=== PATIENT | female | born 1950 | race Hispanic/Latino ===

== ENCOUNTER → 2018-10-10 | Day surgery (SDC) | payer MEDICARE, OTHER ==
[2018-10-08 11:56] LABS: BASOPHILS # (AUTO) 0.1 (0.0-0.1); BASOPHILS % 0.5 % (0.0-1.0); EOSINOPHILS # (AUTO) 0.2 (0.0-0.4); EOSINOPHILS % 1.5 % (0.0-6.0); HEMATOCRIT 44.7 % (34.2-44.1); HEMOGLOBIN 14.2 g/dL (12.0-16.0); LYMPHOCYTES # (AUTO) 2.7 (1.0-3.2); MEAN CORPUSCULAR HGB CONC 31.8 g/dL (31-35); MEAN CORPUSCULAR VOLUME 91.2 fL (81-99); MONOCYTES # (AUTO) 1.1 (0.2-0.8); MONOCYTES % 10.3 % (4.4-11.3); NEUTROPHILS # (AUTO) 6.9 (2.1-6.9); NEUTROPHILS % 62.3 % (38.7-80.0); PLATELET COUNT 304 x10e3/uL (140-360); RED CELL DISTRIBUTION WIDTH 13.9 % (11.7-14.4)
--- NOTE | 2018-10-08 12:31 | Diagnostic Imaging Report ---
EXAMINATION: CHEST 2 VIEWS INDICATION: Pre-operative. COMPARISON: None FINDINGS: TUBES and LINES: None. LUNGS: Lungs are moderately inflated. There is no evidence of pneumonia or pulmonary edema. There is elevation of the right hemidiaphragm. Mild interstitial opacities may reflect age-related chronic changes. PLEURA: No pleural effusion or pneumothorax. HEART AND MEDIASTINUM: The cardiomediastinal silhouette is unremarkable. There are atherosclerotic calcifications within the aorta. BONES AND SOFT TISSUES: No acute osseous abnormality. UPPER ABDOMEN: No free air under the diaphragm. IMPRESSION: Clear lungs. Elevation of the right hemidiaphragm. Comparison with prior studies or fluoroscopic sniff test may be considered to evaluate for phrenic nerve palsy. Signed by: Dr. Rajesh Cottrell MD on 10/08/2018 12:27 PM
[2018-10-08 12:45] LABS: ANION GAP 11.7 mmol/L (8-16); BLOOD UREA NITROGEN 22 mg/dL (7-26); BUN/CREATININE RATIO 26 (6-25); CALCIUM 10.3 mg/dL (8.4-10.2); CARBON DIOXIDE 31 mmol/L (22-29); CHLORIDE 101 mmol/L (98-107); CREATININE, SERUM 0.84 mg/dL (0.57-1.11); EST GLOMERULAR FILTRATION RATE > 60 ML/MIN (60-); GLUCOSE 112 mg/dL (74-118); POTASSIUM 4.7 mmol/L (3.5-5.1); SODIUM 139 mmol/L (136-145)
[~2018-10-10] MED LIST: ACETAMINOPHEN 1000 MG/100 ML 100 ML IV ONE; ASPIR 8181 MG PO; BUPIVACAINE 0.25%/EPI 30ML SDV INJ ONE; CEFAZOLIN SOD 2 GM/D5W 50ML 50 ML IV ONE; DESFLURANE 240 ML BTL INH ONE; DEXAMETHASONE SOD PHOS INJ 4 MG/ML VIAL ONE; EPHEDRINE SULFATE INJ 50 MG/10 ML SYR ONE; EPINEPHRINE HCL 1:1000 1ML 1 MG/ML AMP ONE; FENTANYL CITRATE/PF 100MCG/2 ML INJ ONE; GLYCOPYRROLATE INJ 1MG/ 5 ML SYR ONE; LANTUS 3ML100 UNITS/ INJ; LIDOCAINE HCL 2% LOCAL INJ 5 ML SDV VIAL INJ ONE; MEPERIDINE HCL INJ 25 MG/ML VIAL ONE; METOCLOPRAMIDE HCL 10 MG/2ML VIAL ONE; METOPROLOL SUCC25 MG PO; MIDAZOLAM HCL 2 MG/2 ML VIAL ONE; NAPROXEN250 MG PO; NEOSTIGMINE 5 MG/5ML SYR ONE; ONDANSETRON HCL INJ 2MG/ML 2ML 2 MG/ML VIAL ONE; PHENYLEPHRINE HCL 1% 10 MG/ML VIAL ONE; PROMETHAZINE HCL (IM) 25 MG/ML VIAL ONE; PROPOFOL IV EMULSION 10 MG/ML 20 ML VIAL ONE; ROCURONIUM BROMIDE 10 MG/ML 5ML VIAL ONE; SEVOFLURANE INHAL SOLN 250 ML PEN BTL ONE; SIMVASTATIN40 MG PO; VICTOZA 2-0.6 MG/0.1 INJ
--- OUTSIDE RECORDS SUMMARY | 2018-10-10 07:53 | XMS REPORT | Continuity of Care Document ---
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 Active 08/13/2018 [facility] SOB Active 08/09/2018 [facility] Other cervical disc degeneration at C5-C6 level 02/09/2018 08/25/2018 [facility] M54.2 Active 02/05/2018 [facility] Shingles 09/05/2017 09/08/2017 [facility] LEFT SIDE Active 09/05/2017 [facility] Discharge Diagnosis: Sciatica 02/18/2015 02/21/2015 [facility] LT FLANK PAIN Active 02/18/2015 [facility] Discharge Diagnosis: Dehydration 12/29/2014 01/01/2015 [facility] ABNORMAL LABS Active 12/29/2014 [facility] V76.12 - SCREEN MAMMOGRA Active 11/20/2014 [facility] [place] UNK Active 02/19/2014 [facility] 250.00/401.9/562.11/V12.72 Active 02/19/2014 [facility] OSTEOPOROSIS Active 03/28/2013 [facility] V82.81 - SCREEN - OSTEOP Active 03/26/2013 [place] [place] ALDOSTERONOMA/INJURY OF URETER Active 05/23/2012 [facility] ACUTE PYELONEPHRITIS Active 03/22/2012 [facility] DOCTOR SENT Active 03/22/2012 [facility] ABD PAIN Active 03/12/2012 [facility] Constipation<sup>1</sup> Active 03/05/2012 Problem 09/26/2018 Data migrated from [employer] on 10/04/14. [facility] Diverticular disease of colon<sup>2</sup> Active 03/05/2012 Problem 09/26/2018 Data migrated from [employer] on 10/04/14. [facility] Left lower quadrant pain<sup>3</sup> Active 03/05/2012 Problem 09/26/2018 Data migrated from [employer] on 10/04/14. [facility] [place], [place] POSTOP CARE Active 02/23/2012 [place] DIVERTICULITIS Active 12/30/2011 [place] 719.4 - PAIN IN JOINT Active 11/11/2011 [facility] [place] V12.72/562.11/787.20 Active 06/22/2011 [place] DIVETICULITIS Active 06/22/2011 [place] ABDOMINAL PAIN Active 05/15/2011 [place] Acid reflux Resolved Problem 09/26/2018 [facility] [place] Back pain Resolved Problem 09/26/2018 [facility] [place] Diabetes mellitus Active Problem 09/26/2018 [facility] [place] Diverticulitis Active Problem 09/26/2018 [facility] [place],[facility] DM , type 2(<span ID="[id number]</span>) Resolved Problem 09/26/2018 OPIAnni [place], [place] Hip pain Resolved Problem 09/26/2018 [facility] [place],[facility] Hypercholesterolemia Active Problem 09/26/2018 [facility] [place] Sigmoid colectomy Active Problem 09/26/2018 [facility] [place] Sleep apnea Active Problem 09/26/2018 [facility] [place] Diabetes mellitus Active Problem 07/01/2012 [place] Diverticulitis Active Problem 07/01/2012 [place] Hypercholesterolemia Active Problem 07/01/2012 [place] Sleep apnea Active Problem 07/01/2012 [place] Sigmoid colectomy Active Problem 07/01/2012 [facility] Final: Other Screening Mammogram 07/05/2013 [facility] [place] Other spondylosis, cervical region 08/25/2018 [facility] Osteophyte, vertebrae 08/25/2018 [place] Pain in left shoulder 08/25/2018 [place] Pain in right shoulder 08/25/2018 [place] DIVERTICULOSIS OF COLON Active [place] DIVERTICULITIS OF COLON Active [facility] PYELONEPHRITIS NOS Active [facility] Medications Medication Details Route Status Patient Instructions Ordering Provider Order Date Source Omnipaque 300 injectable solution 100 mL, Route: IV, Drug Form: SOLN, Dosing Weight 92.273, kg, ONCALL, GFR > 45 mL/min, Start date: 09/24/18 9:00:00 CDT, Duration: 1 doses or timesNotes: (Same as:Omnipaque 300). WASTE: F/P - Black; E - [facility] Active 09/24/2018 [facility] Lidocaine Hydrochloride 0.05 MG/MG Transdermal Patch [Lidoderm] 1 patch, TOP, Daily, Placed patch on 12 hours off 12 hours, # 30 patch, 0 Refill(s) Active 09/05/2017 [facility] tramadol hydrochloride 50 MG Oral Tablet [Ultram] 50 mg=1 tab, PO, Q4H, PRN pain, X 3 day, # 20 tab, 0 Refill(s) Active 09/05/2017 [facility] valacyclovir 1000 MG Oral Tablet [Valtrex] 1 gm=1 tab, PO, Q8H, X 7 day, # 21 tab, 0 Refill(s) Active 09/05/2017 [facility] tramadol hydrochloride 50 MG Oral Tablet [Ultram] 50 mg=1 tab, PO, Q6H, PRN pain, X 5 day, # 20 tab, 0 Refill(s) Active 02/19/2015 [facility] naproxen 375 mg oral enteric coated delayed-release tablet 375 mg=1 tab, PO, Q12H, # 20 tab, 0 Refill(s) Active 02/19/2015 [facility] Acetaminophen 325 MG / Hydrocodone Bitartrate 5 MG Oral Tablet 1 tab, Route: PO, Dosing Weight 93.636, kg, ONCE, STAT, Start date: 02/18/15 20:57:00, Stop date: 02/18/15 20:57:00 Inactive 02/19/2015 [facility] Ketorolac 30 mg, Route: IM, Drug form: INJ, ONCE, Dosing Weight 93.636, kg, Priority: STAT, Start date: 02/18/15 20:56:00, Stop date: 02/18/15 20:56:00 Inactive 02/19/2015 [facility] Sodium Chloride 0.154 MEQ/ML Injectable Solution 1,000 mL, 1,000 ml/hr, Infuse Over: 1 hr, Route: IV, ONCE, Priority: STAT, Dosing Weight 90.909 kg, Start date: 12/29/14 21:57:00, Duration: 1 doses or times, Stop date: 12/29/14 21:57:00 Inactive 12/30/2014 [facility] Sodium Chloride 0.154 MEQ/ML Injectable Solution 1,000 mL, Rate: 25 ml/hr, Infuse over: 40 hr, Route: IV, Dosing Weight 91.364 kg, Total Volume: 1,000, Start date: 03/07/14 9:23:00, Duration: 30 day, Stop date: 04/06/14 9:22:00 Inactive 03/07/2014 [facility] Flumazenil 0.2 mg, Route: IVP, PRN, Dosing Weight 91.364, kg, PRN Other -See Comment, Start date: 03/07/14 7:47:00, Duration: 1 doses or times, Stop date: Limited # of times Inactive 03/07/2014 [facility] Naloxone 0.1 mg, Route: IVP, Q2MIN, Dosing Weight 91.364, kg, PRN Narcotic Reversal, Start date: 03/07/14 7:47:00, Duration: 4 doses or times, Stop date: Limited # of times Inactive 03/07/2014 [facility] Omnipaque 300 100 mL, 0 ml/hr, Route: INJ, Drug Form: SOLN, ONCE, Start date: 06/29/12 9:00:00, Stop date: 06/29/12 9:00:00 INJ No Longer Active Art 06/29/2012 [facility] Cipro 500 mg, 1 tab, Route: PO, Drug form: TAB, [id number], Dosing Weight 92.273, kg, Start date: 03/27/12 16:00:00, Duration: 30 day, Stop date: 04/26/12 4:00:00 PO No Longer Active Silva 03/27/2012 [facility] Cipro 500 mg oral tablet 500 mg, 1 tab, PO, [id number], 20 tab, Substitution Allowed, TAB PO Active Silva 03/27/2012 [facility] Cipro 500 mg, 1 tab, Route: PO, Drug form: TAB, [id number], Start date: 03/27/12 15:00:00, Duration: 20 doses or times, Stop date: 04/06/12 3:00:00 PO No Longer Active Ahmad 03/27/2012 [facility] Pyridium 200 mg, 1 tab, Route: PO, Drug form: TAB, BID, Start date: 03/23/12 17:00:00, Duration: 30 day, Stop date: 04/22/12 9:00:00 PO No Longer Active Art 03/23/2012 [facility] insulin aspart 4 unit, 0.04 mL, Route: SUB-Q, Drug form: SOLN, TID-Before Meals, Dosing Weight 92.273, kg, PRN Blood Glucose Results, Start date: 03/23/12 0:21:00, Duration: 30 day, Stop date: 04/22/12 0:20:00 SUB-Q No Longer Active [facility] 03/23/2012 [facility] Dextrose 50% Syringe 12.5 gm, 25 mL, Route: IVP, Drug Form: INJ, Dosing Weight 92.273, kg, PRN, PRN Blood Glucose Results, Start date: 03/23/12 0:21:00, Duration: 30 day, Stop date: 04/22/12 0:20:00 IVP No Longer Active [facility] 03/23/2012 [facility] glucagon 1 mg, Route: IM, Drug form: PDR/INJ, PRN, Dosing Weight 92.273, kg, PRN Blood Glucose Results, Start date: 03/23/12 0:21:00, Duration: 30 day, Stop date: 04/22/12 0:20:00 IM No Longer Active [facility] 03/23/2012 [facility] ondansetron 4 mg, 2 mL, Route: IVP, Drug form: INJ, Q6H, Dosing Weight 92.273, kg, PRN Nausea & Vomiting, Start date: 03/22/12 22:22:00, Duration: 30 day, Stop date: 04/21/12 22:21:00 IVP No Longer Active [facility] 03/23/2012 [facility] acetaminophen-hydrocodone 325 mg-5 mg oral tablet 2 tab, Route: PO, Drug Form: TAB, Dosing Weight 92.273, kg, Q4H, PRN Pain Score 4-6, Start date: 03/22/12 22:22:00, Duration: 30 day, Stop date: 04/21/12 22:21:00 PO No Longer Active [facility] 03/23/2012 [facility] Saline Flush 0.9% 5 ml, Route: IVP, Drug Form: INJ, Dosing Weight 92.273, kg, PRN, PRN Line Flush, Start date: 03/22/12 22:22:00, Duration: 30 day, Stop date: 04/21/12 22:21:00 IVP No Longer Active [place] 03/23/2012 [facility] Sodium Chloride 0.9% IV 1,000 mL 1,000 mL, Rate: 125 ml/hr, Infuse over: 8 hr, Route: IV, kg, Total Volume: 1,000, Start date: 03/22/12 22:22:00, Duration: 30 day, Stop date: 04/21/12 22:21:00 IV No Longer Active [place] 03/23/2012 [facility] acetaminophen 650 mg, 2 tab, Route: PO, Drug form: TAB, Q4H, Dosing Weight 92.273, kg, PRN Pain/Fever, Start date: 03/22/12 22:22:00, Duration: 30 day, Stop date: 04/21/12 22:21:00 PO No Longer Active [place] 03/23/2012 [facility] enoxaparin 40 mg, 0.4 mL, Route: SUB-Q, Drug form: INJ, [id number], Dosing Weight 92.273, kg, Priority: STAT, Start date: 03/22/12 22:20:00, Duration: 30 day, Stop date: 04/20/12 23:00:00 SUB-Q No Longer Active mad 03/23/2012 [facility] tobramycin + Sodium Chloride 0.9% IV 100 mL 300 mg, 7.5 mL, Route: IV, Drug form: INJ, ONCE, Dosing Weight 92.273, kg, Priority: STAT, Start date: 03/22/12 22:12:00, Stop date: 03/22/12 22:12:00 IV No Longer Active Ahmad 03/23/2012 [facility] cefepime + Sodium Chloride 0.9% IV 100 mL 1 gm, Route: IVPB, [id number], Dosing Weight 92.273, kg, (CrCl 30 - 49 ml/min), Priority: STAT, Start date: 03/22/12 22:12:00, Duration: 30 day, Stop date: 04/21/12 10:00:00 IVPB No Longer Active mad 03/23/2012 [facility] vancomycin 1 gm, 250 mL, Route: IVPB, Drug form: INJ, ONCE, Dosing Weight 92.273, kg, Priority: STAT, Start date: 03/22/12 21:29:00, Stop date: 03/22/12 21:29:00 IVPB No Longer Active [facility] 03/23/2012 [facility] Rocephin 1 gm, Route: IVPB, ONCE, Dosing Weight 92.273, kg, Priority: STAT, Start date: 03/22/12 21:29:00, Stop date: 03/22/12 21:29:00 IVPB No Longer Active [facility] 03/23/2012 [facility] NS 500 mL 500 mL, Rate: 1,000 ml/hr, Infuse over: 0.5 hr, Route: IV, kg, Total Volume: 500, Start date: 03/22/12 20:07:00, Duration: 1 doses or times, Stop date: 03/22/12 20:36:00, Bolus DoseBolus Dose IV No Longer Active [facility] 03/23/2012 [facility] ondansetron 4 mg, 2 mL, Route: IVP, Drug form: INJ, ONCE, Dosing Weight 92.273, kg, Priority: STAT, Start date: 03/22/12 18:03:00, Stop date: 03/22/12 18:03:00 IVP No Longer Active [facility] 03/23/2012 [facility] Saline Flush 0.9% 5 mL, Route: IVP, Drug Form: INJ, Dosing Weight 92.273, kg, PRN, PRN Line Flush, Start date: 03/22/12 18:03:00, Duration: 24 hr, Stop date: 03/23/12 18:02:00 IVP No Longer Active [facility] 03/23/2012 [facility] metoclopramide 10 mg, 2 mL, Route: IVP, Drug form: INJ, ONCE, Dosing Weight 92.273, kg, Priority: STAT, Start date: 03/22/12 18:03:00, Stop date: 03/22/12 18:03:00 IVP No Longer Active [facility] 03/23/2012 [facility] oxybutynin 15 mg oral tablet, extended release 15 mg, 1 tab, PO, Daily, 30 tab, Substitution Allowed, ERTAB PO Active Anju 03/13/2012 [facility] Ultram 50 mg oral tablet 50 mg, 1 tab, PO, Q4H, PRN, 20 tab, pain, Substitution Allowed PO Active [facility] 03/13/2012 [facility] Dilaudid 0.5 mg, Route: IV, ONCE, Dosing Weight 92.273, kg, Start date: 03/12/12 13:09:00, Stop date: 03/12/12 13:09:00 IV No Longer Active [facility] 03/12/2012 [facility] Saline Flush 0.9% 5 mL, Route: IVP, Drug Form: INJ, Dosing Weight 92.273, kg, PRN, PRN Line Flush, Start date: 03/12/12 12:50:00, Duration: 24 hr, Stop date: 03/13/12 12:49:00 IVP No Longer Active [facility] 03/12/2012 [facility] [place] 5/325 oral tablet 1 tab, Route: PO, Drug Form: TAB, Dosing Weight 99.545, kg, Q6H, PRN Pain Score 1-5, Start date: 03/09/12 12:45:00, Duration: 30 day, Stop date: 04/08/12 12:44:00 PO No Longer Active [facility] 03/09/2012 [facility] sulfamethoxazole-trimethoprim 800 mg-160 mg oral tablet 1 tab, Route: PO, Drug Form: TAB, [id number], Start date: 03/08/12 9:00:00, Duration: 30 day, Stop date: 04/06/12 9:00:00 PO No Longer Active [place] 03/08/2012 [facility] Entereg 12 mg, 1 cap, Route: PO, Drug form: CAP, ONCE, Dosing Weight 99.545, kg, Start date: 03/06/12 11:04:00, Stop date: 03/06/12 11:04:00 PO No Longer Active [facility] 03/06/2012 [facility] Bystolic 2.5 mg, 1 tab, Route: PO, Drug form: TAB, Daily, Start date: 03/06/12 9:00:00, Duration: 30 day, Stop date: 04/04/12 9:00:00 PO No Longer Active [facility] 03/06/2012 [facility] multivitamin with minerals 1 tab, Route: PO, Drug Form: TAB, Daily, Start date: 03/06/12 9:00:00, Duration: 30 day, Stop date: 04/04/12 9:00:00 PO No Longer Active [place] 03/06/2012 [facility] Amaryl 4 mg, 1 tab, Route: PO, Drug form: TAB, Daily, Start date: 03/06/12 9:00:00, Duration: 30 day, Stop date: 04/04/12 9:00:00 PO No Longer Active [place] 03/06/2012 [facility] acetaminophen 1,000 mg, 2 tab, Route: PO, Drug form: TAB, Q6H, PRN Pain, Start date: 03/06/12 8:03:00, Duration: 30 day, Stop date: 04/05/12 8:02:00 PO No Longer Active Voloyiannis 03/06/2012 [facility] magnesium sulfate 2 gm, 50 mL, Route: IVPB, Drug form: INJ, ONCE, Start date: 03/06/12 8:03:00, Stop date: 03/06/12 8:03:00 IVPB No Longer Active [place] 03/06/2012 [facility] Glucophage 1,000 mg, 2 tab, Route: PO, Drug form: TAB, BID-Meals, Start date: 03/06/12 8:00:00, Duration: 30 day, Stop date: 04/04/12 17:00:00 PO No Longer Active [place] 03/06/2012 [facility] Protonix 40 mg, 1 tab, Route: PO, Drug form: ECTAB, Before Dinner, Start date: 03/05/12 21:00:00, Duration: 30 day, Stop date: 04/04/12 16:30:00 PO No Longer Active Voloyiannis 03/06/2012 [facility] Zocor 20 mg, 1 tab, Route: PO, Drug form: TAB, Bedtime, Start date: 03/05/12 21:00:00, Duration: 30 day, Stop date: 04/03/12 21:00:00 PO No Longer Active [place]iannis 03/06/2012 [facility] famotidine 20 mg, 2 mL, Route: IVP, Drug form: INJ, Q12H, Dosing Weight 92.273, kg, Start date: 03/05/12 21:00:00, Duration: 30 day, Stop date: 04/04/12 9:00:00 IVP No Longer Active Vol[place]nis 03/06/2012 [facility] Entereg 12 mg, 1 cap, Route: PO, Drug form: CAP, BID, Dosing Weight 92.273, kg, Start date: 03/05/12 17:00:00, Duration: 30 day, Stop date: 04/04/12 9:00:00 PO No Longer Active [facility] 03/05/2012 [facility] naloxone 0.04 mg, Route: IVP, Q2MIN, Dosing Weight 92.273, kg, PRN Narcotic Reversal, Start date: 03/05/12 16:38:00, Duration: 8 doses or times, Stop date: Limited # of times IVP No Longer Active [place] 03/05/2012 [facility] meperidine 12.5 mg, 0.25 mL, Route: IVP, Drug form: INJ, Q30Min, Dosing Weight 92.273, kg, PRN Other -See Comment, For shivering, Start date: 03/05/12 16:38:00, Duration: 2 doses or times, Stop date: Limited # of times IVP No Longer Active [place] 03/05/2012 [facility] flumazenil 0.2 mg, 2 mL, Route: IVP, Drug form: INJ, PRN, Dosing Weight 92.273, kg, PRN Benzodiazepine Reversal, Initial dose, Start date: 03/05/12 16:38:00, Duration: 30 day, Stop date: 04/04/12 15:37:00 IVP No Longer Active [place] 03/05/2012 [facility] fentanyl 25 microgram, 0.5 mL, Route: IVP, Drug form: INJ, Q5Min, Dosing Weight 92.273, kg, PRN Pain Score 4-6, Start date: 03/05/12 16:38:00, Duration: 4 doses or times, Stop date: Limited # of times IVP No Longer Active [place] 03/05/2012 [facility] hydromorphone 0.5 mg, 0.25 mL, Route: IVP, Drug form: INJ, Q5Min, Dosing Weight 92.273, kg, PRN Pain Score 4-6, Start date: 03/05/12 16:38:00, Duration: 5 doses or times, Stop date: Limited # of times IVP No Longer Active [place] 03/05/2012 [facility] ondansetron 4 mg, 2 mL, Route: IVP, Drug form: INJ, ONCE, Dosing Weight 92.273, kg, PRN Nausea & Vomiting, Start date: 03/05/12 16:38:00 IVP No Longer Active [place] 03/05/2012 [facility] acetaminophen-hydrocodone 325 mg-5 mg oral tablet 1 tab, Route: PO, Drug Form: TAB, Dosing Weight 92.273, kg, Q4H, PRN Pain Score 1-3, Start date: 03/05/12 16:38:00, Duration: 30 day, Stop date: 04/04/12 16:37:00 PO No Longer Active [place] 03/05/2012 [facility] Lovenox 40 mg, 0.4 mL, Route: SUB-Q, Drug form: INJ, [id number], Dosing Weight 92.273, kg, Start date: 03/05/12 16:00:00, Duration: 30 day, Stop date: 04/03/12 6:00:00 SUB-Q No Longer Active [facility] 03/05/2012 [facility] nalbuphine 2 mg, 0.2 mL, Route: IVP, Drug form: INJ, Q2H, Dosing Weight 92.273, kg, PRN Itching, Start date: 03/05/12 10:53:00, Duration: 5 doses or times, Stop date: Limited # of times IVP No Longer Active [facility] 03/05/2012 [facility] naloxone 0.04 mg, 0.04 mL, Route: IVP, Drug form: INJ, Q2MIN, Dosing Weight 92.273, kg, PRN Narcotic Reversal, Start date: 03/05/12 10:53:00, Duration: 30 day, Stop date: 04/04/12 9:52:00 IVP No Longer Active [facility] 03/05/2012 [facility] hydromorphone 0.2 mg/mL JEWEL GAUGER (6 mg/30 mL) INJ Syringe 6 mg 6 mg, 30 mL, Route: IV, JEWEL GAUGER Dose: 0.2 mg, JEWEL GAUGER Lockout: 10 minutes, Continuous Basal Rate: 0 mg, 4 Hour Limit (In MG): 6, Drug Form: INJ, Continuous, Pain, Start date: 03/05/12 10:53:00, Duration: 30 day, Stop date: 04/04/12 9:52:00 IV No Longer Active [facility] 03/05/2012 [facility] NS + KCL 20mEq/L 1000ml (Premix) 1,000 mL 1,000 mL, Rate: 40 ml/hr, Infuse over: 25 hr, Route: IV, kg, Total Volume: 1,000, Start date: 03/05/12 10:53:00, Stop date: 04/04/12 10:52:00 [facility] diphenhydrAMINE 25 mg, 1 tab, Route: PO, Drug form: TAB, Bedtime, Dosing Weight 92.273, kg, PRN Insomnia, Start date: 03/05/12 10:53:00, Duration: 30 day, Stop date: 04/04/12 10:52:00 PO No Longer Active [facility] 03/05/2012 [facility] acetaminophen 650 mg, 2 tab, Route: PO, Drug form: TAB, Q4H, Dosing Weight 92.273, kg, PRN Pain Score 1-3, Start date: 03/05/12 10:53:00, Duration: 30 day, Stop date: 04/04/12 10:52:00 PO No Longer Active [facility] 03/05/2012 [facility] ondansetron 4 mg, 2 mL, Route: IVP, Drug form: INJ, Q6H, Dosing Weight 92.273, kg, PRN Nausea & Vomiting, Start date: 03/05/12 10:53:00, Duration: 30 day, Stop date: 04/04/12 10:52:00 [facility]2012 [facility] Ofirmev 1,000 mg, 100 mL, Route: IV, Drug form: INJ, Q6H, Dosing Weight 92.273, kg, for > or=50 kg, Start date: 03/05/12 10:50:00, Stop date: 04/04/12 12:00:00, Scheduled not PRN IV No Longer Active [facility]2012 [facility] Entereg 12 mg, 1 cap, Route: PO, Drug form: CAP, ONCE, Dosing Weight 92.273, kg, Start date: 03/05/12 9:25:00, Stop date: 03/05/12 9:25:00 PO No Longer Active [place] 03/05/2012 [facility] Invanz + Sodium Chloride 0.9% IV 100 mL 1 gm, Route: IVPB, ONCE, Dosing Weight 92.273, kg, Start date: 03/05/12 9:25:00, Stop date: 03/05/12 9:25:00 IVPB No Longer Active Stevenoyryan 03/05/2012 [facility] Sodium Chloride 0.9% IV 1,000 mL 1,000 mL, Rate: 25 ml/hr, Infuse over: 40 hr, Route: IV, kg, Total Volume: 1,000, Start date: 03/05/12 9:23:00, Duration: 30 day, Stop date: 04/04/12 9:22:00 IV No Longer Active Lauren 03/05/2012 [facility] Lactated Ringers Injection IV 1,000 mL 1,000 mL, Rate: 25 ml/hr, Infuse over: 40 hr, Route: IV, kg, Total Volume: 1,000, Start date: 03/05/12 9:23:00, Duration: 30 day, Stop date: 04/04/12 9:22:00 IV No Longer Active Lauren 03/05/2012 [facility] Entereg 12 mg, 1 cap, Route: PO, Drug form: CAP, ONCE, Start date: 03/05/12 9:15:00, Stop date: 03/05/12 9:15:00 PO No Longer Active Stevenoyianjohnny 03/05/2012 [facility] multivitamin with minerals Multiple Vitamins with Zinc oral capsule 1 cap, PO, Daily, 60 cap, Substitution Allowed, Maintenance, CAP PO Active 03/01/2012 [facility] Cipro 500 mg, 1 tab, Route: PO, Drug form: TAB, [id number], kg, Start date: 01/02/12 12:00:00, Duration: 30 day, Stop date: 02/01/12 0:00:00 PO No Longer Active [place] 01/02/2012 [facility] Cipro 500 mg oral tablet 500 mg, 1 tab, PO, [id number], 20 tab, Substitution Allowed, TAB PO Active [place] 01/02/2012 [facility] Flagyl 500 mg oral tablet 500 mg, 1 tab, PO, Q8H, 30 tab, Substitution Allowed PO Active [place] 01/02/2012 [facility] Tylenol 650 mg, 2 tab, Route: PO, Drug form: TAB, Q4H, PRN Other -See Comment, Start date: 12/31/11 19:10:00, Duration: 30 day, Stop date: 01/30/12 19:09:00 PO No Longer Active Martina 01/01/2012 [facility] Tylenol 650 mg, 2 tab, Route: PO, Drug form: TAB, Q4H, kg, PRN Pain, Start date: 12/31/11 18:41:00, Duration: 30 day, Stop date: 01/30/12 18:40:00 PO No Longer Active Martina 12/31/2011 [facility] Flagyl 500 mg, 100 mL, Route: IVPB, Drug form: INJ, Q6H, kg, Start date: 12/31/11 3:00:00, Duration: 30 day, Stop date: 01/29/12 21:00:00 IVPB No Longer Active [place] 12/31/2011 [facility] Dextrose 50% Syringe 25 mL, Route: IVP, Dosing Weight 94.091, kg, PRN, PRN Blood Glucose Results, Start date: 12/30/11 22:42:00, Duration: 30 day, Stop date: 01/29/12 22:41:00 IVP No Longer Active [place] 12/31/2011 [facility] insulin aspart 9 unit, Route: SUB-Q, Sliding Scale, Dosing Weight 94.091, kg, PRN Blood Glucose Results, Start date: 12/30/11 22:42:00, Duration: 30 day, Stop date: 01/29/12 22:41:00 SUB-Q No Longer Active [place] 12/31/2011 [facility] glucagon 1 mg, Route: IM, PRN, Dosing Weight 94.091, kg, PRN Blood Glucose Results, Start date: 12/30/11 22:42:00, Duration: 30 day, Stop date: 01/29/12 22:41:00 IM No Longer Active [place] 12/31/2011 [facility] Flagyl 500 mg, Route: IVPB, Q8H, Dosing Weight 90.909, kg, Priority: STAT, Start date: 12/30/11 22:18:00, Duration: 30 day, Stop date: 01/29/12 16:00:00 IVPB No Longer Active [facility] 12/31/2011 [facility] ceftriaxone 1 gm, Route: IVPB, Q24H, Dosing Weight 90.909, kg, Priority: STAT, Start date: 12/30/11 22:18:00, Duration: 30 day, Stop date: 01/28/12 22:18:00 IVPB No Longer Active [facility] 12/31/2011 [facility] Sodium Chloride 0.9% IV 1000 mL 1,000 mL, Rate: 100 ml/hr, Infuse over: 10 hr, Route: IV, Dosing Weight 90.909 kg, Total Volume: 1,000, Start date: 12/30/11 22:18:00, Duration: 30 day, Stop date: 01/29/12 22:17:00 IV No Longer Active [facility] 12/31/2011 [facility] Dilaudid 0.5 mg, Route: IV, Q4H, Dosing Weight 90.909, kg, PRN Pain, Start date: 12/30/11 22:18:00, Duration: 30 day, Stop date: 01/29/12 22:17:00 IV No Longer Active [facility] 12/31/2011 [facility] Saline Flush 0.9% 5 ml, Route: IVP, Drug Form: INJ, kg, PRN, PRN Line Flush, Start date: 12/30/11 22:18:00, Duration: 30 day, Stop date: 01/29/12 22:17:00 IVP No Longer Active [facility] 12/31/2011 [facility] ondansetron 4 mg, 2 mL, Route: IVP, Drug form: INJ, Q6H, kg, PRN Nausea & Vomiting, Start date: 12/30/11 22:18:00, Duration: 30 day, Stop date: 01/29/12 22:17:00 IVP No Longer Active [facility] 12/31/2011 [facility] glucagon 1 mg, Route: IM, Drug form: PDR/INJ, PRN, kg, PRN Blood Glucose Results, Start date: 12/30/11 22:03:00, Duration: 30 day, Stop date: 01/29/12 22:02:00 IM No Longer Active [facility] 12/31/2011 [facility] insulin aspart 4 unit, 0.04 mL, Route: SUB-Q, Drug form: SOLN, TID-Before Meals, kg, PRN Blood Glucose Results, Start date: 12/30/11 22:03:00, Duration: 30 day, Stop date: 01/29/12 22:02:00 SUB-Q No Longer Active [facility] 12/31/2011 [facility] Dextrose 50% Syringe 12.5 gm, 25 mL, Route: IVP, Drug Form: INJ, kg, PRN, PRN Blood Glucose Results, Start date: 12/30/11 22:03:00, Duration: 30 day, Stop date: 01/29/12 22:02:00 IVP No Longer Active [facility] 12/31/2011 [facility] Rocephin + normal saline 0.9% IV 100 mL 1 gm, Route: IVPB, Drug form: PDR/INJ, Q24H, kg, Start date: 12/30/11 22:00:00, Duration: 30 day, Stop date: 01/29/12 20:00:00 IVPB No Longer Active [facility] 12/31/2011 [facility] normal saline 0.9% IV 1,000 mL 1,000 mL, Rate: 100 ml/hr, Infuse over: 10 hr, Route: IV, Dosing Weight 90.909 kg, Total Volume: 1,000, Start date: 12/30/11 21:59:00, Duration: 30 day, Stop date: 01/29/12 21:58:00 IV No Longer Active [facility] 12/31/2011 [facility] Dilaudid 0.5 mg, 0.5 mL, Route: IV, Drug form: SOLN, Q4H, kg, PRN Pain, Start date: 12/30/11 21:56:00, Duration: 30 day, Stop date: 01/29/12 21:55:00 IV No Longer Active [place] 12/31/2011 [facility] Sodium Chloride 0.9% IV 1,000 mL 1,000 mL, Rate: 100 ml/hr, Infuse over: 10 hr, Route: IV, Dosing Weight 90.909 kg, Total Volume: 1,000, Start date: 12/30/11 21:55:00, Duration: 30 day, Stop date: 01/29/12 21:54:00 IV No Longer Active [facility] 12/31/2011 [facility] Nexium 40 mg oral delayed release capsule 40 mg, 1 cap, PO, Daily, Substitution Allowed PO Active 12/31/2011 [facility] Sodium Chloride 0.9% (Bolus) IV 500 mL 500 mL, Rate: 500 ml/hr, Infuse over: 1 hr, Route: IV, kg, Total Volume: 500, Bolus Dose, Priority: STAT, Start date: 12/30/11 20:31:00, Duration: 1 doses or times, Stop date: 12/30/11 21:30:00 IV No Longer Active [facility] 12/31/2011 [facility] Flagyl 500 mg, Route: IVPB, ONCE, Dosing Weight 90.909, kg, Priority: STAT, Start date: 12/30/11 20:31:00, Stop date: 12/30/11 20:31:00 IVPB No Longer Active [facility] 12/31/2011 [facility] ceftriaxone 1 gm, Route: IVPB, ONCE, Dosing Weight 90.909, kg, Priority: STAT, Start date: 12/30/11 20:31:00, Stop date: 12/30/11 20:31:00 IVPB No Longer Active [facility] 12/31/2011 [facility] Lactated Ringers IV 1,000 mL 1000 mL 1,000 mL, Rate: 40 ml/hr, Infuse over: 25 hr, Route: IV, Total Volume: 1,000, Start date: 07/08/11 6:47:00, Duration: 30 day, Stop date: 08/07/11 6:46:00 IV No Longer Active [facility] 07/08/2011 [facility] meloxicam 15 mg oral tablet PO, Daily, Substitution Allowed, TAB PO Active 07/06/2011 [facility] Rocephin 1 gm, Route: IVPB, [id number], Start date: 05/15/11 21:00:00, Duration: 30 day, Stop date: 06/13/11 21:00:00 IVPB No Longer Active [facility] 05/16/2011 [facility] Lovenox 40 mg, 0.4 mL, Route: SUB-Q, Drug form: INJ, [id number], Start date: 05/15/11 21:00:00, Duration: 30 day, Stop date: 06/13/11 21:00:00 SUB-Q No Longer Active [facility] 05/16/2011 [facility] Flagyl 500 mg, 100 mL, Route: IVPB, Drug form: INJ, [id number], Start date: 05/15/11 20:00:00, Duration: 30 day, Stop date: 06/14/11 12:00:00 IVPB No Longer Active [facility] 05/16/2011 [facility] Zosyn 3.375 gm, 100 mL, Route: IVPB, Drug form: PDR/INJ, [id number], Priority: STAT, Start date: 05/15/11 19:06:00, Duration: 30 day, Stop date: 06/14/11 13:06:00 IVPB No Longer Active [facility] 05/16/2011 [facility] Saline Flush 0.9% 5 ml, Route: IVP, Drug Form: INJ, PRN, PRN Line Flush, Start date: 05/15/11 19:06:00, Duration: 30 day, Stop date: 06/14/11 19:05:00 IVP No Longer Active [facility] 05/16/2011 [facility] Sodium Chloride 0.9% IV 1,000 mL 1,000 mL, Rate: 125 ml/hr, Infuse over: 8 hr, Route: IV, Total Volume: 1,000, Start date: 05/15/11 19:06:00, Duration: 30 day, Stop date: 06/14/11 19:05:00 [facility]2011 [facility] morphine Sulfate 2 mg, 1 mL, Route: IVP, Drug form: INJ, Q3H, PRN Pain Score 4-6, Start date: 05/15/11 19:06:00, Duration: 30 day, Stop date: 06/14/11 19:05:00 IVP No Longer Active [facility] 05/16/2011 [facility] acetaminophen 650 mg, 2 tab, Route: PO, Drug form: TAB, Q4H, PRN Pain/Fever, Start date: 05/15/11 19:06:00, Duration: 30 day, Stop date: 06/14/11 19:05:00 PO No Longer Active [facility] 05/16/2011 [facility] ondansetron 4 mg, 2 mL, Route: IVP, Drug form: INJ, Q6H, PRN Nausea & Vomiting, Start date: 05/15/11 19:06:00, Duration: 30 day, Stop date: 06/14/11 19:05:00 IVP No Longer Active [facility] 05/16/2011 [facility] Dextrose 50% in Water IV 50 mL, Route: IVP, PRN, Blood Glucose Results, Start date: 05/15/11 18:55:00, Duration: 30 day, Stop date: 06/14/11 18:54:00 IVP No Longer Active [facility] 05/16/2011 [facility] NovoLog FlexPen 6 unit, 0.06 mL, Route: SUB-Q, Drug form: SOLN, Sliding Scale, PRN Blood Glucose Results, Start date: 05/15/11 18:55:00, Duration: 30 day, Stop date: 06/14/11 18:54:00 SUB-Q No Longer Active [facility] 05/16/2011 [facility] glucagon 1 mg, Route: IM, Drug form: PDR/INJ, PRN, PRN Blood Glucose Results, Start date: 05/15/11 18:55:00, Duration: 30 day, Stop date: 06/14/11 18:54:00 IM No Longer Active [facility] 05/16/2011 [facility] NovoLog FlexPen 3 unit, 0.03 mL, Route: SUB-Q, Drug form: SOLN, Sliding Scale, PRN Blood Glucose Results, Start date: 05/15/11 18:54:00, Duration: 30 day, Stop date: 06/14/11 18:53:00 SUB-Q No Longer Active [facility] 05/16/2011 [facility] Sodium Chloride 0.9% IV 1,000 mL 1,000 mL, Rate: 75 ml/hr, Infuse over: 13.3 hr, Route: IV, Total Volume: 1,000, Start date: 05/15/11 18:53:00, Duration: 1 doses or times, Stop date: 05/16/11 8:10:00 IV No Longer Active [facility] 05/16/2011 [facility] Sodium Chloride 0.9% (Bolus) IV 1000 mL 1,000 mL, Rate: 1,000 ml/hr, Infuse over: 1 hr, Route: IV, Total Volume: 1,000, Bolus Dose, Priority: STAT, Start date: 05/15/11 16:44:00, Duration: 1 doses or times, Stop date: 05/15/11 17:43:00 IV No Longer Active [facility] 05/15/2011 [facility] glimepiride 4 mg oral tablet 4 mg, 1 tab, PO, Daily, Substitution Allowed PO Active 05/15/2011 [facility] metFORmin 1000 mg oral tablet 1,000 mg, 1 tab, PO, BID, Substitution Allowed PO Active 05/15/2011 [facility] simvastatin 20 mg, PO, Bedtime, Substitution Allowed PO Active 05/15/2011 [facility] Bystolic 2.5 mg oral tablet 2.5 mg, 1 tab, PO, Daily, Substitution Allowed PO Active 05/15/2011 [facility] aspirin 81 mg tablet, chewable 81 mg, 1 tab, PO, Daily, Substitution Allowed PO Active 05/15/2011 [facility] Zosyn 3.375 gm, 100 mL, Route: IVPB, Drug form: PDR/INJ, ONCE, Priority: STAT, Start date: 05/15/11 16:23:00, Stop date: 05/15/11 16:23:00 IVPB No Longer Active [facility] 05/15/2011 [facility] Reglan 10 mg, Route: IVP, ONCE, Start date: 05/15/11 14:52:00, Stop date: 05/15/11 14:52:00 IVP No Longer Active [facility] 05/15/2011 [facility] ondansetron 4 mg, Route: IVP, Drug form: INJ, ONCE, Priority: STAT, Start date: 05/15/11 14:17:00, Stop date: 05/15/11 14:17:00 IVP No Longer Active [facility] 05/15/2011 [facility] ondansetron 4 mg, Route: IVP, ONCE, Priority: STAT, Start date: 05/15/11 13:08:00, Stop date: 05/15/11 13:08:00 IVP No Longer Active [facility] 05/15/2011 [facility] hydromorphone 1 mg, Route: IVP, ONCE, Priority: STAT, Start date: 05/15/11 13:08:00, Stop date: 05/15/11 13:08:00 IVP No Longer Active [facility] 05/15/2011 [facility] Saline Flush 0.9% 5 ml, Route: IVP, Drug Form: INJ, PRN, PRN Line Flush, Start date: 05/15/11 13:08:00, Duration: 24 hr, Stop date: 05/16/11 13:07:00 IVP No Longer Active [facility] 05/15/2011 [facility] Allergies, Adverse Reactions, Alerts Substance Category Reaction Severity Reaction type Status Date Reported Comments Source morphine Assertion Drug allergy Active [facility] Immunizations Immunization Date Given Site Status Last Updated Comments Source Results Order Name Results Value Reference Range Date Interpretation Comments Source CHEM PANEL eGFR 75 mL/min/1.73m2 09/24/2018 Result Comment: The eGFR is calculated using the CKD-EPI formula. In most young, healthy individuals the eGFR will be >90 mL/min/1.73m2. The eGFR declines with age. An eGFR of 60-89 may be normal in some populations, particularly the elderly, for whom the CKD-EPI formula has not been extensively validated. Use of the eGFR is not recommended in the following populations: Individuals with unstable creatinine concentrations, including patients and those with serious co-morbid conditions. Patients with extremes in muscle mass or diet. The data above are obtained from the National Kidney Disease Education Program (NKDEP) which additionally recommends that when the eGFR is used in patients with extremes of body mass index for purposes of drug dosing, the eGFR should be multiplied by the estimated BMI. [facility] CHEM PANEL POC Creatinine 0.8 mg/dL 0.5 - 1.4 09/24/2018 [facility] Chest w contrast CT Chest w contrast CT CT CHEST WITH CONTRAST: HISTORY: Lung nodule, abnormal chest radiograph. TECHNIQUE: Multislice axial acquisitions were done through the chest with IV contrast. Sagittal and coronal reformatted images were also obtained. DLP 473 mGycm. FINDINGS: There is volume loss in the right lung compared to the left with elevation or eventration of the right hemidiaphragm. This is chronic, visible on previous abdominal CTs and chest radiographs dating back to 08/14/2010. Mild septal thickening in the right upper lobe and right lower lobe is noted, corresponding to the ill-defined right upper lobe opacity described on chest radiograph of 08/09/2018. There is minimal subsegmental atelectasis in the right middle lobe. There is no lung nodule or mass. There is no lung consolidation. No endobronchial abnormalities are seen. There are no other significant pulmonary or pleural abnormalities. There is no mediastinal mass or significant lymph node enlargement. There are no significant vascular abnormalities. There are no significant abnormalities in the visible upper abdomen. There are no acute osseous abnormalities. Degenerative changes in the thoracic spine are noted. IMPRESSION: 1. No evidence of lung mass or nodule. There is mild nonspecific septal thickening in the right upper lobe corresponding to the recently described radiographic opacity. 2. Elevated right hemidiaphragm with mild volume loss in the right lung, chronic and unchanged since 2010. Sniff test done on 10/15/2009 showed paradoxical movement of the right hemidiaphragm suggesting paresis. 3. No other acute CT abnormalities of the chest. [id number] 09/24/2018 - - Read by: Collin Michaels MD Dictated Date/time: 09/24/18 11:21 Electronically Signed by: Collin Michaels MD 09/24/18 11:37 FINAL REPORT [facility] Shoulder wo contrast MRI Shoulder wo contrast MRI EXAM: Left shoulder wo contrast MRI INDICATION: - BILAT SHOULDER PAIN COMPARISON: Plain films of the bilateral shoulders from 02/05/2018 TECHNIQUE: Multiplanar, multisequence magnetic resonance imaging of the left shoulder was performed without the administration of intravenous gadolinium contrast. FINDINGS: Glenohumeral joint: Negative for acute bony fracture or joint dislocation. Tear throughout the inferior glenoid labrum is seen. Multiple subcentimeter paralabral cysts abutting the anteroinferior, inferior, and posteroinferior glenoid are seen with largest measuring 5 mm. High-grade chondrosis with prominent underlying subchondral cystic change along the inferior glenoid fossa is seen. Degenerative tear of the superior glenoid labrum is noted. Small glenohumeral joint effusion and synovitis is seen. Osseous acromion complex: The acromion is type II in morphology and shows horizontal orientation without significant narrowing of the supraspinatus outlet. No os acromiale is seen. There is severe AC joint osteoarthrosis with high-grade cartilage loss, small joint effusion, and joint capsular hypertrophy with periarticular cystic change in the distal clavicle. Rotator cuff tendons: [id number] supraspinatus and infraspinatus tendinosis is seen. There is a high-grade interstitial partial-thickness tear of the distal supraspinatus tendon at the footprint measuring 11 mm AP dimension. Subscapularis and teres minor tendons are intact. Biceps tendon: Intact and without subluxation or dislocation. Soft tissues: Scant fluid in the subacromial-subdeltoid bursa is seen. No muscular atrophy or denervation edema is noted. IMPRESSION: 1. Mild to moderate supraspinatus and infraspinatus tendinosis with high-grade interstitial partial-thickness tear of the distal supraspinatus tendon at the footprint measuring 11 mm AP dimension. 2. Tear throughout the inferior glenoid labrum with multiple overlying paralabral cysts. 3. High-grade chondrosis with underlying subchondral cystic change along the inferior glenoid fossa. 4. Small glenohumeral joint effusion and synovitis. 5. Severe AC joint osteoarthrosis. SL: [id number] 09/05/2018 - - Read by: Naun aY MD Dictated Date/time: 09/05/18 09:45 Electronically Signed by: Naun Ya MD 09/05/18 09:55 FINAL REPORT [facility] Shoulder wo contrast MRI Shoulder wo contrast MRI EXAM: Right shoulder wo contrast MRI INDICATION: - BILAT SHOULDER PAIN COMPARISON: Plain films of the bilateral shoulders from 02/05/2018 TECHNIQUE: Multiplanar, multisequence magnetic resonance imaging of the right shoulder was performed without the administration of intravenous gadolinium contrast. FINDINGS: Glenohumeral joint: Negative for acute bony fracture or joint dislocation. Small to moderate-sized glenohumeral joint effusion is seen, communicating with the subacromial-subdeltoid bursa as well as subscapularis recess. Extensive degenerative tearing throughout the superior glenoid labrum is seen. Mild subchondral cystic change along the inferior glenoid fossa is noted. There is no high-grade chondral defect of the humeral head or glenoid fossa. No capsular abnormality is seen. Osseous acromion complex: The acromion is type III in morphology and shows horizontal orientation. No os acromiale is seen. Moderate AC joint osteoarthrosis is seen with chondral thinning, synovitis, and periarticular cystic change. Rotator cuff tendons: Moderate infraspinatus tendinosis is seen. There is a full-thickness complete tear of the supraspinatus tendon and anterior fibers of the infraspinatus tendon measuring 2.5 cm AP dimension with 3.5 cm proximal tendon retraction. High-grade articular surface partial-thickness tears of the remaining posterior fibers of the infraspinatus tendon are seen. The subscapularis and teres minor tendons are intact. Biceps tendon: Intra-articular disruption of the biceps tendon at the biceps labral anchor is seen with mild distal retraction of the attenuated tendon stump. Soft tissues: No extracapsular mass or cystic fluid collection is present. There is moderate atrophy of the infraspinatus muscle belly. IMPRESSION: 1. Full-thickness tear of the supraspinatus tendon and anterior fibers of the infraspinatus tendon measuring 2.5 cm AP dimension with 3.5 cm proximal tendon retraction. 2. High-grade articular surface partial-thickness tears of the remaining posterior fibers of the infraspinatus tendon. 3. Degenerative tearing of the superior glenoid labrum with intra-articular disruption of the biceps tendon and distal retraction of the attenuated tendon stump. 4. Small to moderate-sized glenohumeral joint effusion. 5. Moderate AC joint osteoarthrosis with type III acromion. SL: [id number] 09/05/2018 - - Read by: Naun Ya MD Dictated Date/time: 09/05/18 09:36 Electronically Signed by: Naun Ya MD 09/05/18 09:45 FINAL REPORT [facility] Chest 2 views DX Chest 2 views DX PROCEDURE: CHEST TWO VIEW INDICATION: Shortness of breath COMPARISON: None. FINDINGS: There is elevation of the right hemidiaphragm. There is an ill-defined opacity in the right upper lobe. The left lung is clear. The pleura, cardiac silhouette and bony thorax are normal. No vascular congestion is present. Prominent aortic arch is noted. There are moderate degenerative changes throughout the thoracic spine. IMPRESSION: Ill-defined opacity in right upper lobe. Pneumonia not excluded. SL: [id number] 08/09/2018 - - Read by: James Poe MD Dictated Date/time: 08/09/18 18:11 Electronically Signed by: James Poe MD 08/09/18 18:12 FINAL REPORT [facility] Shoulder 2+ Views Bilateral DX Shoulder 2+ Views Bilateral DX Exam: Shoulder 2+ Views Bilateral DX Clinical Indication: - M54.2 Cervicalgia, M25.519 Pain in unspecified shoulder. Bilateral shoulder pain. Comparison: Shoulder radiographs 11/11/2011 FINDINGS: 3 views of the right shoulder and 3 views of the left shoulder are performed. Right Shoulder: No acute fracture identified. The glenohumeral and acromioclavicular joints are anatomically aligned. The soft tissues are unremarkable. No radiopaque foreign body. Left Shoulder: No acute fracture identified. The glenohumeral and acromioclavicular joints are anatomically aligned. The soft tissues are unremarkable. No radiopaque foreign body. IMPRESSION: No acute osseous abnormality of the shoulders. SL: [id number] 02/05/2018 - - Read by: Roney Burnette MD Dictated Date/time: 02/05/18 20:44 Electronically Signed by: Roney Burnette MD 02/05/18 20:45 FINAL REPORT [facility] Spine cervical 2 or 3 view DX Spine cervical 2 or 3 view DX Cervical spine 5 views 02/05/2018 HISTORY: Pain and unspecified shoulder FINDINGS: Transforaminal view of the dens is within normal limits. Open-mouth view of the dens is somewhat limited but grossly unremarkable. There is reversal of the normal curvature of the upper cervical spine. Vertebral body heights are maintained. Moderate disc space narrowing and osteophytes are present at C4-C5 and C5-C6. Small osteophytes at C3-C4 are noted. Alignment is preserved. No prevertebral soft tissue swelling is noted. IMPRESSION: 1. Moderate degenerative disc disease at C4-C5 and C5-C6. 2. No malalignment, fracture, or soft tissue swelling. 3. Reversal of normal curvature which may be related to patient positioning or muscle spasm. SL: [id number] 02/05/2018 - - Read by: James Poe MD Dictated Date/time: 02/05/18 21:00 Electronically Signed by: James Poe MD 02/05/18 21:01 FINAL REPORT [facility] Breast Mammo Scrn RYAN incl CAD RI Breast Mammo Scrn RYAN incl CAD RI BILATERAL DIGITAL SCREENING MAMMOGRAM WITH CAD: 10/06/2017 CLINICAL: Z12.31 Encounter For Screening Mammogram For Malignant Neoplasm Of Breast/Z12.31 Encounter For Screening Mammogram For Malignant Neoplasm Of Breast. Current study was evaluated with a Computer Aided Detection (CAD) system. COMPARISON:Comparison is made to exams dated: 04/08/2016 mammogram, 01/09/2015 mammogram - [facility], 06/27/2013 mammogram - [facility], 05/16/2012 mammogram, and 01/14/2011 mammogram - [facility]. TECHNIQUE: Mammographic views were obtained using digital acquisition. Current study was also evaluated with a Computer Aided Detection (CAD) system. FINDINGS: The tissue of both breasts is almost entirely fat. There are benign vascular calcifications in both breasts. No significant masses, calcifications, or other findings are seen in either breast. There has been no significant interval change. IMPRESSION: BENIGN RECOMMENDATION:There is no mammographic evidence of malignancy. A 1 year screening mammogram is recommended.(10/07/2018) This exam was interpreted at [id number] at [facility] [place]. Professional services are provided by the [facility]. Dr. Maite Wall D.O. ht/penrad:10/06/2017 14:32:52 Evidence Technician(s): Kisha Samuels RT(R)(M), [facility] letter sent: BI-RADS 1/2 Mammogram BI-RADS: 2 Benign 10/06/2017 - - Read by: Maite Wall DO Dictated Date/time: 10/06/17 14:32 Electronically Signed by: Maite Wall DO 10/06/17 14:32 FINAL REPORT [facility] Chest 2 views DX Chest 2 views DX EXAM: 2 view(s) of the chest. CLINICAL HX: R06.02 Shortness of breath. . . COMPARISON: Chest x-ray: 03/22/2012. FINDINGS: Support apparatus: None. Cardiac silhouette: Unremarkable. Jackeline: Unremarkable. Consolidation: Negative. Pleural effusion: Negative. Pneumothorax: Negative. Other: Stable calcified granuloma left midlung. Bones: Unremarkable. Other: Stable elevation of the right hemidiaphragm. IMPRESSION: 1. No acute cardiopulmonary process. 04/20/2016 - - Read by: Chema Mcgarry MD Dictated Date/time: 04/20/16 10:40 Electronically Signed by: Chema Mcgarry MD 04/20/16 11:16 FINAL REPORT [facility] Digital Mammo Screening Ryan MA Digital Mammo Screening Ryan MA - DIGITAL MAMMO SCREENING RYAN MA BILATERAL DIGITAL SCREENING MAMMOGRAM WITH CAD: 04/08/2016 CLINICAL: Z12.31 Encounter For Screening Mammogram For Malignant Neoplasm Of Breast. Current study was evaluated with a Computer Aided Detection (CAD) system. Comparison is made to exams dated: 01/09/2015 mammogram - [facility], 06/27/2013 mammogram - [facility], 05/16/2012 mammogram and 01/14/2011 mammogram - [facility]. The tissue of both breasts is almost entirely fat. There are benign vascular calcifications in both breasts. No significant masses, calcifications, or other findings are seen in either breast. There has been no significant interval change. IMPRESSION: BENIGN There is no mammographic evidence of malignancy. A 1 year screening mammogram is recommended. Professional services are provided by the [facility]. Nirav Ramsay M.D. cm/penrad:04/12/2016 14:30:49 Evidence Technician: Kisha ALEX(Nelsy)(M), [facility] This exam was dictated and interpreted by [id number] for ERNESTO [place] 15. letter sent: Normal exam Mammogram BI-RADS: 2 Benign 04/08/2016 - - Read by: Kike Ramsay III, MD Dictated Date/time: 04/12/16 14:30 Electronically Signed by: Kike Ramsay III, MD 04/12/16 14:30 FINAL REPORT [facility] Spine lumbar 2 or 3 views DX Spine lumbar 2 or 3 views DX EXAM: Spine lumbar AP lateral HISTORY: pain COMPARISON: 12/17/2010. There is grade 1 anterolisthesis of L4 on L5. There is slight retrolisthesis of L2 on L3. Multilevel moderate disc space narrowing and endplate osteophyte formation is present. The vertebral body heights are maintained. Advanced facet arthropathy is noted. IMPRESSION: Degenerative change as above. 03/05/2015 - - Read by: Teto Hayward MD Dictated Date/time: 03/05/15 15:46 Electronically Signed by: Teto Hayward MD 03/05/15 15:47 FINAL REPORT [facility] Digital Mammo Screening Rayn MA Digital Mammo Screening Ryan MA - DIGITAL MAMMO SCREENING RYAN MA BILATERAL DIGITAL SCREENING MAMMOGRAM WITH CAD: 01/09/2015 CLINICAL: Routine. Current study was evaluated with a Computer Aided Detection (CAD) system. Comparison is made to exams dated: 01/14/2011 mammogram, 05/16/2012 mammogram - [facility] and 06/27/2013 mammogram - [facility]. There are scattered fibroglandular densities in both breasts. There are benign vascular calcifications in both breasts. No significant masses, calcifications, or other findings are seen in either breast. There has been no significant interval change. IMPRESSION: BENIGN There is no mammographic evidence of malignancy. A 1 year screening mammogram is recommended. Chema Mcgarry M.D. srp/penrad:01/13/2015 06:07:37 Evidence Technician: Kisha Samuels [facility] This exam was dictated and interpreted by [id number] for JOSE MARIA Sifuentes. letter sent: Normal exam Mammogram BI-RADS: 2 Benign 01/09/2015 - - Read by: Chema Mcgarry MD Dictated Date/time: 01/13/15 06:07 Electronically Signed by: Chema Mcgarry MD 01/13/15 06:07 FINAL REPORT JSOE MARIA Jorgensen CARDIAC ENZYMES CK MB 1.4 ng/mL 0.5 - 3.6 12/30/2014 [facility] CARDIAC ENZYMES CK MB Index 1.1 0.0 - 2.5 12/30/2014 [facility] CARDIAC ENZYMES Total CK 126 unit/L 12 - 191 12/30/2014 [facility] CARDIAC ENZYMES Troponin-I null 0.00 - 0.40 12/30/2014 [facility] CHEM PANEL Calcium Lvl 8.8 mg/dL 8.5 - 10.5 12/30/2014 [facility] CHEM PANEL Chloride Lvl 98 meq/L 95 - 109 12/30/2014 [facility] CHEM PANEL Potassium Lvl 4.3 meq/L 3.5 - 5.1 12/30/2014 [facility] CHEM PANEL Sodium Lvl 134 meq/L 135 - 145 12/30/2014 [facility] CHEM PANEL Glucose Lvl 107 mg/dL 70 - 99 12/30/2014 [facility] CHEM PANEL eGFR 52 mL/min/1.73m2 12/30/2014 Result Comment: The eGFR is calculated using the CKD-EPI formula. In most young, healthy individuals the eGFR will be >90 mL/min/1.73m2. The eGFR declines with age. An eGFR of 60-89 may be normal in some populations, particularly the elderly, for whom the CKD-EPI formula has not been extensively validated. Use of the eGFR is not recommended in the following populations: Individuals with unstable creatinine concentrations, including patients and those with serious co-morbid conditions. Patients with extremes in muscle mass or diet. The data above are obtained from the National Kidney Disease Education Program (NKDEP) which additionally recommends that when the eGFR is used in patients with extremes of body mass index for purposes of drug dosing, the eGFR should be multiplied by the estimated BMI. [facility] CHEM PANEL Bili Total 0.3 mg/dL 0.2 - 1.3 12/30/2014 [facility] CHEM PANEL AST 25 unit/L 0 - 37 12/30/2014 [facility] CHEM PANEL Alk Phos 46 unit/L 39 - 136 12/30/2014 [facility] CHEM PANEL Albumin Lvl 4.0 g/dL 3.5 - 5.0 12/30/2014 [facility] CHEM PANEL ALT 35 unit/L 0 - 65 12/30/2014 [facility] CHEM PANEL Total Protein 8.3 g/dL 6.4 - 8.4 12/30/2014 [facility] CHEM PANEL BUN 24 mg/dL 7 - 22 12/30/2014 [facility] CHEM PANEL CO2 26 meq/L 24 - 32 12/30/2014 [facility] CHEM PANEL Creatinine Lvl 1.1 mg/dL 0.5 - 1.4 12/30/2014 [facility] CHEM PANEL Globulin 4.3 g/dL 2.0 - 4.0 12/30/2014 [facility] CHEM PANEL AGAP 14.3 meq/L 10.0 - 20.0 12/30/2014 [facility] CHEM PANEL A/G Ratio 0.9 0.7 - 1.6 12/30/2014 [facility] CHEM PANEL B/C Ratio 22 6 - 25 12/30/2014 [facility] HEMATOLOGY INR 1.04 0.85 - 1.17 12/30/2014 [facility] HEMATOLOGY PTT 28.5 s 22.9 - 35.8 12/30/2014 [facility] HEMATOLOGY PT 13.6 s 12.0 - 14.7 12/30/2014 [facility] HEMATOLOGY MCHC 33.2 g/dL 32.0 - 36.0 12/30/2014 [facility] MCH 27.4 pg 27.0 - 31.0 12/30/2014 [facility] Platelet 235 K/CMM 133 - 450 12/30/2014 [facility] RDW 15.8 % 11.5 - 14.5 12/30/2014 [facility] MPV 8.9 fL 7.4 - 10.4 12/30/2014 [facility] Hct 38.4 % 36.0 - 48.0 12/30/2014 [facility] MCV 82.6 fL 80.0 - 98.0 12/30/2014 [facility] RBC 4.65 M/CMM 4.20 - 5.40 12/30/2014 [facility] Hgb 12.7 g/dL 12.0 - 16.0 12/30/2014 [facility] WBC 12.4 K/CMM 3.7 - 10.4 12/30/2014 [facility] Segs 48.7 % 45.0 - 75.0 12/30/2014 [facility] Eosinophils # 0.3 K/CMM 0.0 - 0.5 12/30/2014 [facility] Basophils # 0.1 K/CMM 0.0 - 0.2 12/30/2014 [facility] HEMATOLOGY Eosinophils 2.8 % 0.0 - 4.0 12/30/2014 [facility] Lymphocytes 38.0 % 20.0 - 40.0 12/30/2014 [facility] Monocytes 9.7 % 2.0 - 12.0 12/30/2014 [facility] Segs-Bands # 6.0 K/CMM 1.5 - 8.1 12/30/2014 [facility] Basophils 0.8 % 0.0 - 1.0 12/30/2014 [facility] Monocytes # 1.2 K/CMM 0.0 - 0.8 12/30/2014 [facility] Lymphocytes # 4.7 K/CMM 1.0 - 5.5 12/30/2014 [facility] CHEM PANEL eGFR 78 mL/min/1.73m2 03/03/2014 1Result Comment: The eGFR is calculated using the CKD-EPI formula. In most young, healthy individuals the eGFR will be >90 mL/min/1.73m2. The eGFR declines with age. An eGFR of 60-89 may be normal in some populations, particularly the elderly, for whom the CKD-EPI formula has not been extensively validated. Use of the eGFR is not recommended in the following populations: Individuals with unstable creatinine concentrations, including patients and those with serious co-morbid conditions. Patients with extremes in muscle mass or diet. The data above are obtained from the National Kidney Disease Education Program (NKDEP) which additionally recommends that when the eGFR is used in patients with extremes of body mass index for purposes of drug dosing, the eGFR should be multiplied by the estimated BMI. [facility] CHEM PANEL Potassium Lvl 4.9 meq/L 3.5 - 5.1 03/03/2014 [facility] CHEM PANEL CO2 29 meq/L 24 - 32 03/03/2014 [facility] CHEM PANEL Chloride Lvl 102 meq/L 95 - 109 03/03/2014 [facility] CHEM PANEL Calcium Lvl 9.6 mg/dL 8.5 - 10.5 03/03/2014 [facility] CHEM PANEL AGAP 13.9 meq/L 10.0 - 20.0 03/03/2014 [facility] CHEM PANEL Creatinine Lvl 0.8 mg/dL 0.5 - 1.4 03/03/2014 [facility] CHEM PANEL Sodium Lvl 140 meq/L 135 - 145 03/03/2014 [facility] CHEM PANEL BUN 18 mg/dL 7 - 22 03/03/2014 [facility] CHEM PANEL Glucose Lvl 143 mg/dL 70 - 99 03/03/2014 2Interpretive Data: Adult reference range values reflect the clinical guidelines of the [place] [employer]. [place] Spine lumbar wo contrast MRI Spine lumbar wo contrast MRI EXAM: MRI LUMBAR SPINE WITHOUT CONTRAST DATE: Jan 08, 2014 10:25:03 AM . CLINICAL INDICATION: low back pain x8 months. Sharp left leg and foot pain.. TECHNIQUE: Multiplanar, multisequence MRI lumbar spine without IV contrast COMPARISON: CT aberrant/pelvis of March 22, 2012, lumbar radiographs of December 17, 2010 FINDINGS: There 5, nonrib-bearing lumbar vertebral bodies. There is no malalignment. No worrisome marrow signal abnormality. The conus terminates normally at L1-L2. The paravertebral soft tissues are within normal limits. Note is made of a small filum lipoma. Disc spaces, spinal canal, and neural foramina: Developmental narrowing of lumbar spinal canal from L3-L4 level down secondary to short pedicles T12-L1. Loss of intervertebral disc height and signal with shallow diffuse disc bulge. No stenosis. L1-L2. Loss of intervertebral disc signal. No stenosis. L2-L3. Severe facet hypertrophy with degenerative grade 1 retrolisthesis L2 over L3 and subsequent pseudobulging of the posterior annulus. There is indention of the thecal sac without crowding of the cauda equina. There is bilateral subarticular narrowing without nerve root compression. Moderate bilateral foraminal narrowing slightly worse on the right L3-L4. Loss of intervertebral disc height and signal. Severe facet hypertrophy. Spinal canal is maintained. There is severe bilateral foraminal narrowing L4-L5. Loss of intervertebral disc signal. Severe bilateral facet hypertrophy. There is bilateral subarticular narrowing posterior displacing both descending L5 nerve roots. There is moderate bilateral foraminal narrowing. L5-S1. Mild facet hypertrophy. Epidural lipomatosis with typical trident configuration of the thecal sac. There severe right and moderate left foraminal narrowing. IMPRESSION: 1. Severe facet hypertrophy leads to degenerative retrolisthesis of L2 relative to L3 as well as conceivable impingement upon upon the bilateral L2 nerve roots, the bilateral L3 nerve roots, the bilateral L4 nerve roots, and the bilateral L5 nerve roots within the neural foramina 2. Multilevel level spondylosis leads to mild to moderate moderate degenerative narrowing of the spinal canal without compression or significant crowding of the cauda equina 3. 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 Current study was evaluated with a Computer Aided Detection (CAD) system. Comparison is made to exams dated: 01/14/2011 mammogram and 05/16/2012 mammogram - [facility]. There are scattered fibroglandular densities in both breasts. No significant masses, calcifications, or other findings are seen in either breast. There has been no significant interval change. IMPRESSION: BENIGN There is no mammographic evidence of malignancy. A screening mammogram in one year is recommended. SUMMARY: *This patient's history suggests that she is at elevated lifetime risk for breast cancer. Genetic counseling is recommended (if not already performed). Yearly screening breast MRI should be considered and is indicated if the patient's predicted lifetime risk of breast cancer exceeds 20%*. Dr. Derrell Rivers M.D. eoc/penrad:07/03/2013 12:58:50 Evidence Technician: Leyla BANERJEE)([place]), [facility] This exam was dictated and interpreted by [id number] for JOSE MARIA Sifuentes. letter sent: Normal exam Mammogram BI-RADS: 2 Benign 06/27/2013 - - Read by: Derrell Rivers Dictated Date/time: 07/03/13 12:58 Electronically Signed by: Derrell Rivers MD 07/03/13 12:58 FINAL REPORT [facility] Bone Density Scan Bone Density Scan PROCEDURE: Bone Density Scan CLINICAL INFORMATION osteoporosis COMPARISON: None. FINDINGS: The lumbar spine bone mineral density is 1.22. This is 116% of the expected normal value, 1.5 standard deviations above normal. The left hip bone mineral density is 1.13. This is 118% of the expected normal value, 1.3 standard deviations above normal. The femoral neck bone mineral density is 0.86. IMPRESSION: 1. Normal bone mineral density of the lumbar spine. 2. Normal bone marrow density of the left hip. SL: 16 04/01/2013 - - Read by: Douglas Maxwell Dictated Date/time: 04/01/13 10:41 Electronically Signed by: Douglas Maxwell MD 04/01/13 10:43 FINAL REPORT [facility] GLUCOSE TESTING Comment1 Notify ASHLI 03/27/2012 NA [facility] BEDSIDE GLUCOSE TESTING Gluc POC Lifscn 178 mg/dL 70 - 99 03/27/2012 [place] 1Interpretive Data: Upper Reportable Limit: 200 mg/dL. [facility] BEDSIDE GLUCOSE TESTING Gluc POC Lifscn 134 mg/dL 70 - 99 03/27/2012 HI 2Interpretive Data: Upper Reportable Limit: 200 mg/dL. [facility] BEDSIDE GLUCOSE TESTING Comment1 Notify ASHLI 03/27/2012 NA [facility] GLUCOSE TESTING Gluc POC Lifscn 139 mg/dL 70 - 99 03/27/2012 HI 3Interpretive Data: Upper Reportable Limit: 200 mg/dL. [facility] BEDSIDE GLUCOSE TESTING Comment1 Notify RN/ 03/26/2012 NA [facility] CHEMISTRY eGFR 79 mL/min/1.73m2 03/26/2012 NA 4Result Comment: The eGFR is calculated using the CKD-EPI formula. In most young, healthy individuals the eGFR will be >90 mL/min/1.73m2. The eGFR declines with age. An eGFR of 60-89 may be normal in some populations, particularly the elderly, for whom the CKD-EPI formula has not been extensively validated. Use of the eGFR is not recommended in the following populations: Individuals with unstable creatinine concentrations, including patients and those with serious co-morbid conditions. Patients with extremes in muscle mass or diet. The data above are obtained from the National Kidney Disease Education Program (NKDEP) which additionally recommends that when the eGFR is used in patients with extremes of body mass index for purposes of drug dosing, the eGFR should be multiplied by the estimated BMI. [facility] CHEMISTRY Sodium Lvl 142 meq/L 135 - 145 03/26/2012 Normal [facility] CHEMISTRY Glucose Lvl 118 mg/dL 70 - 99 03/26/2012 HI 7Interpretive Data: Adult reference range values reflect the clinical guidelines of the [place] [employer]. [facility] CHEMISTRY Potassium Lvl 4.1 meq/L 3.5 - 5.1 03/26/2012 Normal [facility] CHEMISTRY BUN 11 mg/dL 7 - 22 03/26/2012 Normal [facility] CHEMISTRY Creatinine Lvl 0.8 mg/dL 0.5 - 1.4 03/26/2012 Normal [facility] CHEMISTRY Chloride Lvl 105 meq/L 95 - 109 03/26/2012 Normal [facility] CHEMISTRY CO2 28 meq/L 24 - 32 03/26/2012 Normal [facility] CHEMISTRY Calcium Lvl 9.3 mg/dL 8.5 - 10.5 03/26/2012 Normal [facility] CHEMISTRY AGAP 13.1 meq/L 10.0 - 20.0 03/26/2012 Normal [facility] HEMATOLOGY MCV 88.6 fL 81.0 - 99.0 03/26/2012 Normal [facility] HEMATOLOGY MCH 28.5 pg 27.0 - 31.0 03/26/2012 Normal [facility] HEMATOLOGY Hct 28.5 % 36.0 - 48.0 03/26/2012 LOW [facility] HEMATOLOGY MPV 8.8 fL 7.4 - 10.4 03/26/2012 Normal [facility] HEMATOLOGY RDW 14.9 % 11.5 - 14.5 03/26/2012 HI [facility] HEMATOLOGY Platelet 345 K/CMM 133 - 450 03/26/2012 Normal [facility] HEMATOLOGY MCHC 32.1 g/dL 32.0 - 36.0 03/26/2012 Normal [facility] HEMATOLOGY Hgb 9.2 g/dL 12.0 - 16.0 03/26/2012 LOW [facility] HEMATOLOGY WBC 6.1 K/CMM 3.7 - 10.4 03/26/2012 Normal [facility] HEMATOLOGY RBC 3.22 M/CMM 4.20 - 5.40 03/26/2012 LOW [facility] HEMATOLOGY Segs-Bands # 3.1 K/CMM 1.5 - 8.1 03/26/2012 Normal [facility] HEMATOLOGY Lymphocytes # 1.8 K/CMM 1.0 - 5.5 03/26/2012 Normal [facility] HEMATOLOGY Eosinophils 7.0 % 0.0 - 4.0 03/26/2012 [facility] HEMATOLOGY Basophils 0.7 % 0.0 - 1.0 03/26/2012 Normal [facility] HEMATOLOGY Monocytes 12.3 % 2.0 - 12.0 03/26/2012 HI [facility] HEMATOLOGY Basophils # 0.0 K/CMM 0.0 - 0.2 03/26/2012 Normal [facility] HEMATOLOGY Monocytes # 0.8 K/CMM 0.0 - 0.8 03/26/2012 Normal [facility] HEMATOLOGY Eosinophils # 0.4 K/CMM 0.0 - 0.5 03/26/2012 Normal [facility] HEMATOLOGY Lymphocytes 29.8 % 20.0 - 40.0 03/26/2012 Normal [facility] HEMATOLOGY Segs 50.2 % 45.0 - 75.0 03/26/2012 Normal [facility] CHEMISTRY eGFR 92 mL/min/1.73m2 03/23/2012 NA 5Result Comment: The eGFR is calculated using the CKD-EPI formula. In most young, healthy individuals the eGFR will be >90 mL/min/1.73m2. The eGFR declines with age. An eGFR of 60-89 may be normal in some populations, particularly the elderly, for whom the CKD-EPI formula has not been extensively validated. Use of the eGFR is not recommended in the following populations: Individuals with unstable creatinine concentrations, including patients and those with serious co-morbid conditions. Patients with extremes in muscle mass or diet. The data above are obtained from the National Kidney Disease Education Program (NKDEP) which additionally recommends that when the eGFR is used in patients with extremes of body mass index for purposes of drug dosing, the eGFR should be multiplied by the estimated BMI. [facility] CHEMISTRY Creatinine Lvl 0.7 mg/dL 0.5 - 1.4 03/23/2012 Normal [facility] CHEMISTRY AGAP 12.7 meq/L 10.0 - 20.0 03/23/2012 Normal [facility] CHEMISTRY CO2 27 meq/L 24 - 32 03/23/2012 Normal [facility] CHEMISTRY Glucose Lvl 130 mg/dL 70 - 99 03/23/2012 HI 8Interpretive Data: Adult reference range values reflect the clinical guidelines of the [place] [employer]. [facility] CHEMISTRY BUN 8 mg/dL 7 - 22 03/23/2012 Normal [facility] CHEMISTRY Calcium Lvl 8.6 mg/dL 8.5 - 10.5 03/23/2012 Normal [facility] CHEMISTRY Sodium Lvl 140 meq/L 135 - 145 03/23/2012 Normal [facility] CHEMISTRY Potassium Lvl 3.7 meq/L 3.5 - 5.1 03/23/2012 Normal [facility] CHEMISTRY Chloride Lvl 104 meq/L 95 - 109 03/23/2012 Normal [facility] CHEMISTRY Hgb A1C 7.6 % 03/23/2012 NA 10Interpretive Data: HbA1C% eAG(mg/dL) Interpretation 6.0 126 Very good control 6.5 140 Very good control 7.0 154 Good Control 7.5 169 Good Control 8.0 183 Marginal Control, take action to lower 8.5 197 Marginal Control, take action to lower 9.0 212 Poor Control, take action to lower 9.5 226 Poor Control, take action to lower 10.0 240 Poor Control, take action to lower [facility] CHEMISTRY LDL 37 mg/dL 0 - 129 03/23/2012 Normal [facility] CHEMISTRY CHD Risk 2.86 3.90 - 5.80 03/23/2012 LOW [facility] CHEMISTRY Trig 141 mg/dL 0 - 200 03/23/2012 Normal [facility] CHEMISTRY HDL 35 mg/dL >=35 03/23/2012 Normal [facility] CHEMISTRY Chol 100 mg/dL 120 - 200 03/23/2012 LOW [facility] CHEMISTRY TSH 0.832 uIU/mL 0.360 - 3.740 03/23/2012 Normal [facility] HEMATOLOGY Eosinophils # 0.0 K/CMM 0.0 - 0.5 03/23/2012 Normal [facility] HEMATOLOGY Basophils # 0.0 K/CMM 0.0 - 0.2 03/23/2012 Normal [facility] HEMATOLOGY Monocytes 15.1 % 2.0 - 12.0 03/23/2012 [facility] HEMATOLOGY Lymphocytes 15.8 % 20.0 - 40.0 03/23/2012 LOW [facility] HEMATOLOGY Basophils 0.2 % 0.0 - 1.0 03/23/2012 Normal [facility] HEMATOLOGY Eosinophils 0.2 % 0.0 - 4.0 03/23/2012 Normal [facility] HEMATOLOGY Lymphocytes # 2.3 K/CMM 1.0 - 5.5 03/23/2012 Normal [facility] HEMATOLOGY Monocytes # 2.2 K/CMM 0.0 - 0.8 03/23/2012 [facility] HEMATOLOGY Segs-Bands # 9.8 K/CMM 1.5 - 8.1 03/23/2012 [facility] HEMATOLOGY Segs 68.7 % 45.0 - 75.0 03/23/2012 Normal [facility] HEMATOLOGY RBC 3.14 M/CMM 4.20 - 5.40 03/23/2012 LOW [facility] HEMATOLOGY MCH 28.5 pg 27.0 - 31.0 03/23/2012 Normal [facility] HEMATOLOGY MCV 89.0 fL 81.0 - 99.0 03/23/2012 Normal [facility] HEMATOLOGY Hct 27.9 % 36.0 - 48.0 03/23/2012 LOW [facility] HEMATOLOGY Hgb 8.9 g/dL 12.0 - 16.0 03/23/2012 LOW [facility] HEMATOLOGY MCHC 32.0 g/dL 32.0 - 36.0 03/23/2012 Normal [facility] HEMATOLOGY MPV 8.7 fL 7.4 - 10.4 03/23/2012 Normal [facility] HEMATOLOGY RDW 14.4 % 11.5 - 14.5 03/23/2012 Normal [facility] HEMATOLOGY Platelet 322 K/CMM 133 - 450 03/23/2012 Normal [facility] HEMATOLOGY WBC 14.3 K/CMM 3.7 - 10.4 03/23/2012 [facility] Microbiology Culture: Urine 03/23/2012 [facility] IMMUNOLOGY CRP, High Sensitivity 96.0 mg/L 03/23/2012 NA 11Interpretive Data: Low Risk: <1.0 mg/L Average Risk: 1.0 - 3.0 mg/L High Risk: >3.0 mg/L Inflammation: >10.0 mg/L [facility] URINALYSIS UA Urobilinogen <=1.0 mg/dL
*NA*
(03/22/2012 19:05:00) <sup> </sup> 0.1 - 1.0 03/23/2012 NA [facility] URINALYSIS UA Color Ltyellow 03/23/2012 NA [facility] URINALYSIS UA Bacteria Occasional /HPF *NA* (03/22/2012 19:05:00) None Seen 03/23/2012 NA [facility] URINALYSIS UA Nitrite Negative (03/22/2012 19:05:00) Negative 03/23/2012 Normal [facility] URINALYSIS UA Glucose Negative mg/dL *NA* (03/22/2012 19:05:00) Negative 03/23/2012 NA [facility] URINALYSIS UA Blood Moderate *ABN* (03/22/2012 19:05:00) Negative 03/23/2012 [facility]N [facility] URINALYSIS UA Ketones Negative mg/dL *NA* (03/22/2012 19:05:00) Negative 03/23/2012 NA [facility] URINALYSIS UA Bili Negative *NA* (03/22/2012 19:05:00) Negative 03/23/2012 [facility] URINALYSIS UA Protein 30 mg/dL *ABN* (03/22/2012 19:05:00) Negative 03/23/2012 [facility] URINALYSIS UA pH 6.0 5.0 - 8.0 03/23/2012 Normal [facility] URINALYSIS UA RBC 20 /HPF 0 - 2 03/23/2012 [facility] URINALYSIS UA Sq Epi Many /LPF *ABN* (03/22/2012 19:05:00) Few 03/23/2012 [facility] URINALYSIS UA Leuk Est Large *ABN* (03/22/2012 19:05:00) Negative 03/23/2012 [facility] URINALYSIS UA WBC 155 /HPF 0 - 5 03/23/2012 [facility] URINALYSIS UA Turbidity Marked *ABN* (03/22/2012 19:05:00) Clear 03/23/2012 [facility] URINALYSIS UA Spec Grav 1.003 <=1.030 03/23/2012 Normal [facility] CHEMISTRY Lipase Lvl 84 unit/L 73 - 393 03/23/2012 Normal [facility] CHEMISTRY AST 17 unit/L 0 - 37 03/23/2012 Normal [facility] CHEMISTRY Bili Total 0.6 mg/dL 0.2 - 1.3 03/23/2012 Normal [facility] CHEMISTRY Alk Phos 40 unit/L 39 - 136 03/23/2012 Normal [facility] CHEMISTRY CO2 25 meq/L 24 - 32 03/23/2012 Normal [facility] CHEMISTRY Glucose Lvl 173 mg/dL 70 - 99 03/23/2012 [place] 9Interpretive Data: Adult reference range values reflect the clinical guidelines of the [place] [employer]. [facility] CHEMISTRY BUN 8 mg/dL 7 - 22 03/23/2012 Normal [facility] CHEMISTRY ALT 16 unit/L 0 - 65 03/23/2012 Normal [facility] CHEMISTRY Albumin Lvl 2.9 g/dL 3.5 - 5.0 03/23/2012 LOW [facility] CHEMISTRY Total Protein 7.6 g/dL 6.4 - 8.4 03/23/2012 Normal [facility] CHEMISTRY eGFR 92 mL/min/1.73m2 03/23/2012 NA 6Result Comment: The eGFR is calculated using the CKD-EPI formula. In most young, healthy individuals the eGFR will be >90 mL/min/1.73m2. The eGFR declines with age. An eGFR of 60-89 may be normal in some populations, particularly the elderly, for whom the CKD-EPI formula has not been extensively validated. Use of the eGFR is not recommended in the following populations: Individuals with unstable creatinine concentrations, including patients and those with serious co-morbid conditions. Patients with extremes in muscle mass or diet. The data above are obtained from the National Kidney Disease Education Program (NKDEP) which additionally recommends that when the eGFR is used in patients with extremes of body mass index for purposes of drug dosing, the eGFR should be multiplied by the estimated BMI. [facility] CHEMISTRY Sodium Lvl 135 meq/L 135 - 145 03/23/2012 Normal [facility] CHEMISTRY Creatinine Lvl 0.7 mg/dL 0.5 - 1.4 03/23/2012 Normal [facility] CHEMISTRY Potassium Lvl 3.8 meq/L 3.5 - 5.1 03/23/2012 Normal [facility] CHEMISTRY Chloride Lvl 100 meq/L 95 - 109 03/23/2012 Normal [facility] CHEMISTRY Calcium Lvl 9.1 mg/dL 8.5 - 10.5 03/23/2012 Normal [facility] CHEMISTRY B/C Ratio 11 6 - 25 03/23/2012 [facility] CHEMISTRY Globulin 4.7 g/dL 2.0 - 4.0 03/23/2012 [facility] CHEMISTRY AGAP 13.8 meq/L 10.0 - 20.0 03/23/2012 Normal [facility] CHEMISTRY A/G Ratio 0.6 0.7 - 1.6 03/23/2012 LOW [facility] CHEMISTRY Lactic Acid Lvl 1.0 mMol/L 0.5 - 2.2 03/23/2012 Normal [facility] HEMATOLOGY Hgb 9.9 g/dL 12.0 - 16.0 03/23/2012 LOW [facility] HEMATOLOGY RBC 3.49 M/CMM 4.20 - 5.40 03/23/2012 LOW [facility] HEMATOLOGY WBC 19.0 K/CMM 3.7 - 10.4 03/23/2012 [facility] HEMATOLOGY Hct 30.6 % 36.0 - 48.0 03/23/2012 LOW [facility] HEMATOLOGY MPV 8.4 fL 7.4 - 10.4 03/23/2012 Normal [facility] HEMATOLOGY Platelet 397 K/CMM 133 - 450 03/23/2012 Normal [facility] HEMATOLOGY MCV 87.7 fL 81.0 - 99.0 03/23/2012 Normal [facility] HEMATOLOGY RDW 14.8 % 11.5 - 14.5 03/23/2012 [facility] HEMATOLOGY MCHC 32.4 g/dL 32.0 - 36.0 03/23/2012 Normal [facility] HEMATOLOGY MCH 28.5 pg 27.0 - 31.0 03/23/2012 Normal [facility] HEMATOLOGY Segs-Bands # 14.2 K/CMM 1.5 - 8.1 03/23/2012 [facility] HEMATOLOGY Basophils 0.1 % 0.0 - 1.0 03/23/2012 Normal [facility] HEMATOLOGY Eosinophils 0.1 % 0.0 - 4.0 03/23/2012 Normal [facility] HEMATOLOGY Monocytes # 2.4 K/CMM 0.0 - 0.8 03/23/2012 [facility] HEMATOLOGY Lymphocytes # 2.4 K/CMM 1.0 - 5.5 03/23/2012 Normal [facility] HEMATOLOGY Eosinophils # 0.0 K/CMM 0.0 - 0.5 03/23/2012 Normal [facility] HEMATOLOGY Basophils # 0.0 K/CMM 0.0 - 0.2 03/23/2012 Normal [facility] HEMATOLOGY Monocytes 12.8 % 2.0 - 12.0 03/23/2012 HI [facility] HEMATOLOGY Lymphocytes 12.4 % 20.0 - 40.0 03/23/2012 LOW [facility] HEMATOLOGY Segs 74.6 % 45.0 - 75.0 03/23/2012 Normal [facility] Microbiology Culture: Blood 03/23/2012 [facility] Microbiology Culture: Blood 03/23/2012 [facility] CHEMISTRY A/G Ratio 0.7 0.7 - 1.6 03/12/2012 Normal [facility] CHEMISTRY Globulin 4.3 g/dL 2.0 - 4.0 03/12/2012 HI [facility] CHEMISTRY B/C Ratio 14 6 - 25 03/12/2012 Normal [facility] CHEMISTRY AGAP 14.7 meq/L 10.0 - 20.0 03/12/2012 Normal [facility] CHEMISTRY Calcium Lvl 9.4 mg/dL 8.5 - 10.5 03/12/2012 Normal [facility] CHEMISTRY Chloride Lvl 101 meq/L 95 - 109 03/12/2012 Normal [facility] CHEMISTRY Sodium Lvl 141 meq/L 135 - 145 03/12/2012 Normal [facility] CHEMISTRY Potassium Lvl 3.7 meq/L 3.5 - 5.1 03/12/2012 Normal [facility] CHEMISTRY Creatinine Lvl 0.9 mg/dL 0.5 - 1.4 03/12/2012 Normal [facility] CHEMISTRY eGFR 68 mL/min/1.73m2 03/12/2012 NA 1Result Comment: The eGFR is calculated using the CKD-EPI formula. In most young, healthy individuals the eGFR will be >90 mL/min/1.73m2. The eGFR declines with age. An eGFR of 60-89 may be normal in some populations, particularly the elderly, for whom the CKD-EPI formula has not been extensively validated. Use of the eGFR is not recommended in the following populations: Individuals with unstable creatinine concentrations, including patients and those with serious co-morbid conditions. Patients with extremes in muscle mass or diet. The data above are obtained from the National Kidney Disease Education Program (NKDEP) which additionally recommends that when the eGFR is used in patients with extremes of body mass index for purposes of drug dosing, the eGFR should be multiplied by the estimated BMI. [facility] CHEMISTRY ALT 29 unit/L 0 - 65 03/12/2012 Normal [facility] CHEMISTRY AST 33 unit/L 0 - 37 03/12/2012 Normal [facility] CHEMISTRY Alk Phos 50 unit/L 39 - 136 03/12/2012 Normal [facility] CHEMISTRY Bili Total 0.5 mg/dL 0.2 - 1.3 03/12/2012 Normal [facility] CHEMISTRY Albumin Lvl 3.1 g/dL 3.5 - 5.0 03/12/2012 LOW [facility] CHEMISTRY CO2 29 meq/L 24 - 32 03/12/2012 Normal [facility] CHEMISTRY Total Protein 7.4 g/dL 6.4 - 8.4 03/12/2012 Normal [facility] CHEMISTRY Glucose Lvl 160 mg/dL 70 - 99 03/12/2012 [place] 2Interpretive Data: Adult reference range values reflect the clinical guidelines of the [place] [employer]. [facility] CHEMISTRY BUN 13 mg/dL 7 - 22 03/12/2012 Normal [facility] CHEMISTRY Lipase Lvl 200 unit/L 73 - 393 03/12/2012 Normal [facility] HEMATOLOGY MCH 29.4 pg 27.0 - 31.0 03/12/2012 Normal [facility] HEMATOLOGY MCHC 32.9 g/dL 32.0 - 36.0 03/12/2012 Normal [facility] HEMATOLOGY Platelet 366 K/CMM 133 - 450 03/12/2012 Normal [facility] HEMATOLOGY RDW 14.2 % 11.5 - 14.5 03/12/2012 Normal [facility] HEMATOLOGY MPV 8.6 fL 7.4 - 10.4 03/12/2012 Normal [facility] HEMATOLOGY RBC 3.76 M/CMM 4.20 - 5.40 03/12/2012 LOW [facility] HEMATOLOGY Hgb 11.0 g/dL 12.0 - 16.0 03/12/2012 LOW [facility] HEMATOLOGY Hct 33.6 % 36.0 - 48.0 03/12/2012 LOW [facility] HEMATOLOGY MCV 89.3 fL 81.0 - 99.0 03/12/2012 Normal [facility] HEMATOLOGY WBC 11.8 K/CMM 3.7 - 10.4 03/12/2012 HI [facility] HEMATOLOGY Monocytes # 1.1 K/CMM 0.0 - 0.8 03/12/2012 HI [facility] HEMATOLOGY Eosinophils # 0.5 K/CMM 0.0 - 0.5 03/12/2012 Normal [facility] HEMATOLOGY Basophils # 0.0 K/CMM 0.0 - 0.2 03/12/2012 Normal [facility] HEMATOLOGY Segs-Bands # 7.4 K/CMM 1.5 - 8.1 03/12/2012 Normal [facility] HEMATOLOGY Lymphocytes # 2.9 K/CMM 1.0 - 5.5 03/12/2012 Normal [facility] HEMATOLOGY Segs 62.6 % 45.0 - 75.0 03/12/2012 Normal [facility] HEMATOLOGY Basophils 0.3 % 0.0 - 1.0 03/12/2012 Normal [facility] HEMATOLOGY Monocytes 8.9 % 2.0 - 12.0 03/12/2012 Normal [facility] HEMATOLOGY Eosinophils 4.0 % 0.0 - 4.0 03/12/2012 Normal [facility] HEMATOLOGY Lymphocytes 24.2 % 20.0 - 40.0 03/12/2012 Normal [facility] HEMATOLOGY RBC Morph Normal (03/12/2012 13:10:00) 03/12/2012 Normal [facility] HEMATOLOGY Plt Morph Normal (03/12/2012 13:10:00) 03/12/2012 Normal [facility] URINALYSIS UA Urobilinogen Negative (03/12/2012 12:33:00) 0.1 - 1.0 03/12/2012 Normal [facility] URINALYSIS UA Spec Grav 1.020 <=1.030 03/12/2012 Normal [facility] URINALYSIS UA Turbidity Slight *ABN* (03/12/2012 12:33:00) Clear 03/12/2012 ABN [facility] URINALYSIS UA pH 5.5 5.0 - 8.0 03/12/2012 Normal [facility] URINALYSIS UA Bili Negative (03/12/2012 12:33:00) Negative 03/12/2012 Normal [facility] URINALYSIS UA Ketones Negative (03/12/2012 12:33:00) Negative 03/12/2012 Normal [facility] URINALYSIS UA Glucose Negative (03/12/2012 12:33:00) Negative 03/12/2012 Normal [facility] URINALYSIS UA Protein Negative (03/12/2012 12:33:00) Negative 03/12/2012 Normal [facility] URINALYSIS UA Color Yellow (03/12/2012 12:33:00) Yellow 03/12/2012 Normal [facility] URINALYSIS UA Leuk Est Negative (03/12/2012 12:33:00) Negative 03/12/2012 Normal [facility] URINALYSIS Micro? Performed (03/12/2012 12:33:00) 03/12/2012 Normal [facility] URINALYSIS UA Nitrite Negative (03/12/2012 12:33:00) Negative 03/12/2012 Normal [facility] URINALYSIS UA Blood Negative (03/12/2012 12:33:00) Negative 03/12/2012 Normal [facility] URINALYSIS UA Bacteria Occasional /HPF *NA* (03/12/2012 12:33:00) None Seen 03/12/2012 NA [facility] URINALYSIS UA WBC 9 /HPF 0 - 5 03/12/2012 HI [facility] URINALYSIS UA RBC 11 /HPF 0 - 2 03/12/2012 HI [facility] URINALYSIS UA Sq Epi Occasional /LPF *NA* (03/12/2012 12:33:00) Few 03/12/2012 NA [facility] Microbiology Culture: Urine 03/12/2012 [facility] BODY FLUIDS Creat BF Type Other *NA* (03/09/2012 08:55:00) 03/09/2012 NA [facility] BODY FLUIDS Creatinine BF 0.8 mg/dL 03/09/2012 NA 1Interpretive Data: No established reference ranges. [facility] CHEMISTRY Chloride Lvl 106 meq/L 95 - 109 03/09/2012 Normal [facility] CHEMISTRY Sodium Lvl 145 meq/L 135 - 145 03/09/2012 Normal [facility] CHEMISTRY Potassium Lvl 3.9 meq/L 3.5 - 5.1 03/09/2012 Normal [facility] CHEMISTRY eGFR 92 mL/min/1.73m2 03/09/2012 NA 3Result Comment: The eGFR is calculated using the CKD-EPI formula. In most young, healthy individuals the eGFR will be >90 mL/min/1.73m2. The eGFR declines with age. An eGFR of 60-89 may be normal in some populations, particularly the elderly, for whom the CKD-EPI formula has not been extensively validated. Use of the eGFR is not recommended in the following populations: Individuals with unstable creatinine concentrations, including patients and those with serious co-morbid conditions. Patients with extremes in muscle mass or diet. The data above are obtained from the National Kidney Disease Education Program (NKDEP) which additionally recommends that when the eGFR is used in patients with extremes of body mass index for purposes of drug dosing, the eGFR should be multiplied by the estimated BMI. [facility] CHEMISTRY AGAP 15.9 meq/L 10.0 - 20.0 03/09/2012 Normal [facility] CHEMISTRY Calcium Lvl 8.7 mg/dL 8.5 - 10.5 03/09/2012 Normal [facility] CHEMISTRY CO2 27 meq/L 24 - 32 03/09/2012 Normal [facility] CHEMISTRY BUN 7 mg/dL 7 - 22 03/09/2012 Normal [facility] CHEMISTRY Creatinine Lvl 0.7 mg/dL 0.5 - 1.4 03/09/2012 Normal [facility] CHEMISTRY Glucose Lvl 131 mg/dL 70 - 99 03/09/2012 [place] 6Interpretive Data: Adult reference range values reflect the clinical guidelines of the [place] [employer]. [facility] HEMATOLOGY Basophils # 0.0 K/CMM 0.0 - 0.2 03/09/2012 Normal [facility] HEMATOLOGY Lymphocytes # 2.7 K/CMM 1.0 - 5.5 03/09/2012 Normal [facility] HEMATOLOGY Monocytes # 1.1 K/CMM 0.0 - 0.8 03/09/2012 [facility] HEMATOLOGY Eosinophils # 0.6 K/CMM 0.0 - 0.5 03/09/2012 HI [facility] HEMATOLOGY Segs-Bands # 6.3 K/CMM 1.5 - 8.1 03/09/2012 Normal [facility] HEMATOLOGY Segs 59.4 % 45.0 - 75.0 03/09/2012 Normal [facility] HEMATOLOGY Basophils 0.3 % 0.0 - 1.0 03/09/2012 Normal [facility] HEMATOLOGY Lymphocytes 25.2 % 20.0 - 40.0 03/09/2012 Normal [facility] HEMATOLOGY Monocytes 9.9 % 2.0 - 12.0 03/09/2012 Normal [facility] HEMATOLOGY Eosinophils 5.2 % 0.0 - 4.0 03/09/2012 HI [facility] HEMATOLOGY MPV 8.9 fL 7.4 - 10.4 03/09/2012 Normal [facility] HEMATOLOGY Platelet 221 K/CMM 133 - 450 03/09/2012 Normal [facility] HEMATOLOGY MCV 90.4 fL 81.0 - 99.0 03/09/2012 Normal [facility] HEMATOLOGY Hct 28.2 % 36.0 - 48.0 03/09/2012 LOW [facility] HEMATOLOGY MCH 29.7 pg 27.0 - 31.0 03/09/2012 Normal [facility] HEMATOLOGY MCHC 32.9 g/dL 32.0 - 36.0 03/09/2012 Normal [facility] HEMATOLOGY RDW 14.1 % 11.5 - 14.5 03/09/2012 Normal [facility] HEMATOLOGY WBC 10.7 K/CMM 3.7 - 10.4 03/09/2012 HI [facility] HEMATOLOGY Hgb 9.3 g/dL 12.0 - 16.0 03/09/2012 LOW [facility] HEMATOLOGY RBC 3.12 M/CMM 4.20 - 5.40 03/09/2012 LOW [facility] CHEMISTRY AGAP 12.2 meq/L 10.0 - 20.0 03/08/2012 Normal [facility] CHEMISTRY Potassium Lvl 4.2 meq/L 3.5 - 5.1 03/08/2012 Normal [facility] CHEMISTRY Chloride Lvl 109 meq/L 95 - 109 03/08/2012 Normal [facility] CHEMISTRY Calcium Lvl 8.1 mg/dL 8.5 - 10.5 03/08/2012 LOW [facility] CHEMISTRY CO2 28 meq/L 24 - 32 03/08/2012 Normal [facility] CHEMISTRY Creatinine Lvl 0.7 mg/dL 0.5 - 1.4 03/08/2012 Normal [facility] CHEMISTRY Sodium Lvl 145 meq/L 135 - 145 03/08/2012 Normal [facility] CHEMISTRY Glucose Lvl 136 mg/dL 70 - 99 03/08/2012 [place] 7Interpretive Data: Adult reference range values reflect the clinical guidelines of the [place] [employer]. [facility] CHEMISTRY BUN 8 mg/dL 7 - 22 03/08/2012 Normal [facility] CHEMISTRY eGFR 92 mL/min/1.73m2 03/08/2012 NA 4Result Comment: The eGFR is calculated using the CKD-EPI formula. In most young, healthy individuals the eGFR will be >90 mL/min/1.73m2. The eGFR declines with age. An eGFR of 60-89 may be normal in some populations, particularly the elderly, for whom the CKD-EPI formula has not been extensively validated. Use of the eGFR is not recommended in the following populations: Individuals with unstable creatinine concentrations, including patients and those with serious co-morbid conditions. Patients with extremes in muscle mass or diet. The data above are obtained from the National Kidney Disease Education Program (NKDEP) which additionally recommends that when the eGFR is used in patients with extremes of body mass index for purposes of drug dosing, the eGFR should be multiplied by the estimated BMI. [facility] HEMATOLOGY Hgb 9.2 g/dL 12.0 - 16.0 03/08/2012 LOW [facility] HEMATOLOGY Hct 28.3 % 36.0 - 48.0 03/08/2012 LOW [facility] CHEMISTRY Sodium Lvl 143 meq/L 135 - 145 03/07/2012 Normal [facility] CHEMISTRY Potassium Lvl 4.3 meq/L 3.5 - 5.1 03/07/2012 Normal [facility] CHEMISTRY Chloride Lvl 110 meq/L 95 - 109 03/07/2012 HI [facility] CHEMISTRY eGFR 79 mL/min/1.73m2 03/07/2012 NA 5Result Comment: The eGFR is calculated using the CKD-EPI formula. In most young, healthy individuals the eGFR will be >90 mL/min/1.73m2. The eGFR declines with age. An eGFR of 60-89 may be normal in some populations, particularly the elderly, for whom the CKD-EPI formula has not been extensively validated. Use of the eGFR is not recommended in the following populations: Individuals with unstable creatinine concentrations, including patients and those with serious co-morbid conditions. Patients with extremes in muscle mass or diet. The data above are obtained from the National Kidney Disease Education Program (NKDEP) which additionally recommends that when the eGFR is used in patients with extremes of body mass index for purposes of drug dosing, the eGFR should be multiplied by the estimated BMI. [facility] CHEMISTRY AGAP 10.3 meq/L 10.0 - 20.0 03/07/2012 Normal [facility] CHEMISTRY Calcium Lvl 8.6 mg/dL 8.5 - 10.5 03/07/2012 Normal [facility] CHEMISTRY BUN 9 mg/dL 7 - 22 03/07/2012 Normal [facility] CHEMISTRY Glucose Lvl 140 mg/dL 70 - 99 03/07/2012 [place] 8Interpretive Data: Adult reference range values reflect the clinical guidelines of the [place] [employer]. [facility] CHEMISTRY Creatinine Lvl 0.8 mg/dL 0.5 - 1.4 03/07/2012 Normal [facility] CHEMISTRY CO2 27 meq/L 24 - 32 03/07/2012 Normal [facility] CHEMISTRY Phosphorus 3.8 mg/dL 2.5 - 4.5 03/06/2012 Normal [facility] CHEMISTRY Magnesium Lvl 1.3 mg/dL 1.8 - 2.4 03/06/2012 LOW [facility] CHEMISTRY A/G Ratio 0.8 0.7 - 1.6 03/06/2012 Normal [facility] CHEMISTRY Globulin 3.2 g/dL 2.0 - 4.0 03/06/2012 Normal [facility] CHEMISTRY B/C Ratio 16 6 - 25 03/06/2012 Normal [facility] CHEMISTRY Bili Total 0.5 mg/dL 0.2 - 1.3 03/06/2012 Normal [facility] CHEMISTRY AST 32 unit/L 0 - 37 03/06/2012 Normal [facility] CHEMISTRY Alk Phos 34 unit/L 39 - 136 03/06/2012 LOW [facility] CHEMISTRY ALT 36 unit/L 0 - 65 03/06/2012 Normal [facility] CHEMISTRY Total Protein 5.9 g/dL 6.4 - 8.4 03/06/2012 LOW [facility] CHEMISTRY Albumin Lvl 2.7 g/dL 3.5 - 5.0 03/06/2012 LOW [facility] HEMATOLOGY Monocytes # 1.2 K/CMM 0.0 - 0.8 03/06/2012 HI [facility] HEMATOLOGY Eosinophils # 0.0 K/CMM 0.0 - 0.5 03/06/2012 Normal [facility] HEMATOLOGY Basophils # 0.0 K/CMM 0.0 - 0.2 03/06/2012 Normal [facility] HEMATOLOGY Lymphocytes # 1.6 K/CMM 1.0 - 5.5 03/06/2012 Normal [facility] HEMATOLOGY Segs-Bands # 9.0 K/CMM 1.5 - 8.1 03/06/2012 HI [facility] HEMATOLOGY Segs 75.9 % 45.0 - 75.0 03/06/2012 HI [facility] HEMATOLOGY Lymphocytes 13.7 % 20.0 - 40.0 03/06/2012 LOW [facility] HEMATOLOGY Basophils 0.2 % 0.0 - 1.0 03/06/2012 Normal [facility] HEMATOLOGY Monocytes 10.2 % 2.0 - 12.0 03/06/2012 Normal [facility] HEMATOLOGY Eosinophils 0.0 % 0.0 - 4.0 03/06/2012 Normal [facility] HEMATOLOGY Platelet 209 K/CMM 133 - 450 03/06/2012 Normal [facility] HEMATOLOGY MPV 9.5 fL 7.4 - 10.4 03/06/2012 Normal [facility] HEMATOLOGY RDW 14.4 % 11.5 - 14.5 03/06/2012 Normal [facility] HEMATOLOGY MCH 29.9 pg 27.0 - 31.0 03/06/2012 Normal [facility] HEMATOLOGY MCHC 33.4 g/dL 32.0 - 36.0 03/06/2012 Normal [facility] HEMATOLOGY RBC 3.65 M/CMM 4.20 - 5.40 03/06/2012 LOW [facility] HEMATOLOGY WBC 11.9 K/CMM 3.7 - 10.4 03/06/2012 [facility] HEMATOLOGY MCV 89.8 fL 81.0 - 99.0 03/06/2012 Normal [facility] HEMATOLOGY Hgb 10.9 g/dL 12.0 - 16.0 03/06/2012 LOW [facility] HEMATOLOGY Hct 32.8 % 36.0 - 48.0 03/06/2012 LOW [facility] HEMATOLOGY Platelet 208 K/CMM 133 - 450 03/06/2012 Normal [facility] HEMATOLOGY MPV 9.1 fL 7.4 - 10.4 03/06/2012 Normal [facility] HEMATOLOGY RBC 3.85 M/CMM 4.20 - 5.40 03/06/2012 LOW [facility] HEMATOLOGY WBC 11.7 K/CMM 3.7 - 10.4 03/06/2012 [facility] HEMATOLOGY RDW 14.8 % 11.5 - 14.5 03/06/2012 [facility] HEMATOLOGY MCH 29.4 pg 27.0 - 31.0 03/06/2012 Normal [facility] HEMATOLOGY MCHC 32.6 g/dL 32.0 - 36.0 03/06/2012 Normal [facility] HEMATOLOGY MCV 90.1 fL 81.0 - 99.0 03/06/2012 Normal [facility] HEMATOLOGY Eosinophils # 0.0 K/CMM 0.0 - 0.5 03/06/2012 Normal [facility] HEMATOLOGY Basophils # 0.0 K/CMM 0.0 - 0.2 03/06/2012 Normal [facility] HEMATOLOGY Eosinophils 0.0 % 0.0 - 4.0 03/06/2012 Normal [facility] HEMATOLOGY Monocytes 6.1 % 2.0 - 12.0 03/06/2012 Normal [facility] HEMATOLOGY Monocytes # 0.7 K/CMM 0.0 - 0.8 03/06/2012 Normal [facility] HEMATOLOGY Lymphocytes # 0.8 K/CMM 1.0 - 5.5 03/06/2012 LOW [facility] HEMATOLOGY Segs-Bands # 10.2 K/CMM 1.5 - 8.1 03/06/2012 [facility] HEMATOLOGY Basophils 0.1 % 0.0 - 1.0 03/06/2012 Normal [facility] HEMATOLOGY Segs 87.1 % 45.0 - 75.0 03/06/2012 [facility] HEMATOLOGY Lymphocytes 6.7 % 20.0 - 40.0 03/06/2012 LOW [facility] BEDSIDE GLUCOSE TESTING Gluc POC Lifscn 147 mg/dL 70 - 99 03/05/2012 HI 2Interpretive Data: Upper Reportable Limit: 200 mg/dL. [facility] BLOOD BANK RESULTS Antibody Scrn Negative (03/01/2012 13:00:00) 03/01/2012 Normal [facility] BLOOD BANK RESULTS ABO/Rh AB POS 03/01/2012 Unknown [facility] CHEMISTRY B/C Ratio 26 6 - 25 03/01/2012 HI [facility] CHEMISTRY A/G Ratio 1.0 0.7 - 1.6 03/01/2012 Normal [facility] CHEMISTRY Globulin 3.8 g/dL 2.0 - 4.0 03/01/2012 Normal [facility] CHEMISTRY Albumin Lvl 3.8 g/dL 3.5 - 5.0 03/01/2012 Normal [facility] CHEMISTRY Bili Total 0.4 mg/dL 0.2 - 1.3 03/01/2012 Normal [facility] CHEMISTRY AST 35 unit/L 0 - 37 03/01/2012 Normal [facility] CHEMISTRY Alk Phos 47 unit/L 39 - 136 03/01/2012 Normal [facility] CHEMISTRY ALT 40 unit/L 0 - 65 03/01/2012 Normal [facility] CHEMISTRY Total Protein 7.6 g/dL 6.4 - 8.4 03/01/2012 Normal [facility] HEMATOLOGY PTT 28.4 s 22.9 - 35.8 03/01/2012 Normal 10Interpretive Data: Heparin Therapeutic Range: 57 - 92 Seconds [facility] HEMATOLOGY INR 1.00 0.85 - 1.17 03/01/2012 Normal 9Interpretive Data: RECOMMENDED RANGES FOR PROTIME INR: 2.0-3.0 for most medical and surgical thromboembolic states. 2.5-3.5 for artificial heart valves and recurrent embolism. INR SHOULD BE USED ONLY FOR PATIENTS ON STABLE ANTICOAGULANT THERAPY. [facility] HEMATOLOGY PT 13.4 s 12.0 - 14.7 03/01/2012 Normal [facility] URINALYSIS UA Color Haley 03/01/2012 NA [facility] URINALYSIS UA Urobilinogen <=1.0 mg/dL
*NA*
(03/01/2012 13:00:00) <sup> </sup> 0.1 - 1.0 03/01/2012 NA [facility] URINALYSIS UA RBC null 0 - 2 03/01/2012 Normal [facility] URINALYSIS UA WBC 1 /HPF 0 - 5 03/01/2012 Normal [facility] URINALYSIS UA Sq Epi Few /LPF *NA* (03/01/2012 13:00:00) Few 03/01/2012 NA [facility] URINALYSIS UA Leuk Est Small *ABN* (03/01/2012 13:00:00) Negative 03/01/2012 ABN [facility] URINALYSIS UA Glucose Negative mg/dL *NA* (03/01/2012 13:00:00) Negative 03/01/2012 NA [facility] URINALYSIS UA Turbidity Clear (03/01/2012 13:00:00) Clear 03/01/2012 Normal [facility] URINALYSIS UA Spec Grav 1.016 <=1.030 03/01/2012 Normal [facility] URINALYSIS UA pH 7.0 5.0 - 8.0 03/01/2012 Normal [facility] URINALYSIS UA Nitrite Negative (03/01/2012 13:00:00) Negative 03/01/2012 Normal [facility] URINALYSIS UA Blood Negative (03/01/2012 13:00:00) Negative 03/01/2012 Normal [facility] URINALYSIS UA Ketones Trace mg/dL *ABN* (03/01/2012 13:00:00) Negative 03/01/2012 ABN [facility] URINALYSIS UA Protein Negative mg/dL (03/01/2012 13:00:00) Negative 03/01/2012 Normal [facility] URINALYSIS UA Bili Negative *NA* (03/01/2012 13:00:00) Negative 03/01/2012 NA [facility] BEDSIDE GLUCOSE TESTING Gluc POC Lifscn 178 mg/dL 70 - 99 01/03/2012 [place] 1Interpretive Data: Upper Reportable Limit: 200 mg/dL. [facility] BEDSIDE GLUCOSE TESTING Comment1 Notify ASHLI 01/03/2012 NA [facility] BEDSIDE GLUCOSE TESTING Gluc POC Lifscn 143 mg/dL 70 - 99 01/03/2012 [place] 2Interpretive Data: Upper Reportable Limit: 200 mg/dL. [facility] BEDSIDE GLUCOSE TESTING Gluc POC Lifscn 156 mg/dL 70 - 99 01/03/2012 [place] 3Interpretive Data: Upper Reportable Limit: 200 mg/dL. [facility] BEDSIDE GLUCOSE TESTING Comment1 Notify ASHLI 01/02/2012 NA [facility] BEDSIDE GLUCOSE TESTING Comment1 Notify RN/ 01/02/2012 NA [facility] CHEMISTRY Calcium Lvl 8.8 mg/dL 8.5 - 10.5 01/01/2012 Normal [facility] CHEMISTRY BUN 8 mg/dL 7 - 22 01/01/2012 Normal [facility] CHEMISTRY Creatinine Lvl 0.6 mg/dL 0.5 - 1.4 01/01/2012 Normal [facility] CHEMISTRY CO2 25 meq/L 24 - 32 01/01/2012 Normal [facility] CHEMISTRY Glucose Lvl 132 mg/dL 70 - 99 01/01/2012 [place] 4Interpretive Data: Adult reference range values reflect the clinical guidelines of the [place] [employer]. [facility] CHEMISTRY Sodium Lvl 143 meq/L 135 - 145 01/01/2012 Normal [facility] CHEMISTRY Potassium Lvl 3.9 meq/L 3.5 - 5.1 01/01/2012 Normal [facility] CHEMISTRY Chloride Lvl 106 meq/L 95 - 109 01/01/2012 Normal [facility] CHEMISTRY AGAP 15.9 meq/L 10.0 - 20.0 01/01/2012 Normal [facility] HEMATOLOGY Hgb 11.6 g/dL 12.0 - 16.0 01/01/2012 LOW [facility] HEMATOLOGY Hct 34.8 % 36.0 - 48.0 01/01/2012 LOW [facility] [facility] HEMATOLOGY MCV 89.6 fL 81.0 - 99.0 01/01/2012 Normal [facility] HEMATOLOGY RBC 3.88 M/CMM 4.20 - 5.40 01/01/2012 LOW [facility] HEMATOLOGY WBC 8.8 K/CMM 3.7 - 10.4 01/01/2012 Normal [facility] HEMATOLOGY MPV 9.1 fL 7.4 - 10.4 01/01/2012 Normal [facility] HEMATOLOGY RDW 14.0 % 11.5 - 14.5 01/01/2012 Normal [facility] HEMATOLOGY MCHC 33.3 g/dL 32.0 - 36.0 01/01/2012 Normal [facility] HEMATOLOGY MCH 29.8 pg 27.0 - 31.0 01/01/2012 Normal [facility] HEMATOLOGY Platelet 226 K/CMM 133 - 450 01/01/2012 Normal [facility] HEMATOLOGY Basophils # 0.0 K/CMM 0.0 - 0.2 01/01/2012 Normal [facility] HEMATOLOGY Eosinophils # 0.5 K/CMM 0.0 - 0.5 01/01/2012 Normal [facility] HEMATOLOGY Eosinophils 5.2 % 0.0 - 4.0 01/01/2012 [facility] HEMATOLOGY Monocytes 10.5 % 2.0 - 12.0 01/01/2012 Normal [facility] HEMATOLOGY Lymphocytes 26.7 % 20.0 - 40.0 01/01/2012 Normal [facility] HEMATOLOGY Segs 57.2 % 45.0 - 75.0 01/01/2012 Normal [facility] HEMATOLOGY Basophils 0.4 % 0.0 - 1.0 01/01/2012 Normal [facility] HEMATOLOGY Monocytes # 0.9 K/CMM 0.0 - 0.8 01/01/2012 [facility] HEMATOLOGY Lymphocytes # 2.3 K/CMM 1.0 - 5.5 01/01/2012 Normal [facility] HEMATOLOGY Segs-Bands # 5.0 K/CMM 1.5 - 8.1 01/01/2012 Normal [facility] CHEMISTRY Glucose Lvl 137 mg/dL 70 - 99 12/31/2011 [place] 5Interpretive Data: Adult reference range values reflect the clinical guidelines of the [place] [employer]. [facility] CHEMISTRY Bili Total 0.5 mg/dL 0.2 - 1.3 12/31/2011 Normal [facility] CHEMISTRY ALT 31 unit/L 0 - 65 12/31/2011 Normal [facility] CHEMISTRY Alk Phos 39 unit/L 39 - 136 12/31/2011 Normal [facility] CHEMISTRY Globulin 3.5 g/dL 2.0 - 4.0 12/31/2011 Normal [facility] CHEMISTRY Total Protein 6.5 g/dL 6.4 - 8.4 12/31/2011 Normal [facility] CHEMISTRY A/G Ratio 0.9 0.7 - 1.6 12/31/2011 Normal [facility] CHEMISTRY AST 20 unit/L 0 - 37 12/31/2011 Normal [facility] CHEMISTRY CO2 29 meq/L 24 - 32 12/31/2011 Normal [facility] CHEMISTRY Chloride Lvl 104 meq/L 95 - 109 12/31/2011 Normal [facility] CHEMISTRY Albumin Lvl 3.0 g/dL 3.5 - 5.0 12/31/2011 LOW [facility] CHEMISTRY Calcium Lvl 8.6 mg/dL 8.5 - 10.5 12/31/2011 Normal [facility] CHEMISTRY BUN 13 mg/dL 7 - 22 12/31/2011 Normal [facility] CHEMISTRY Creatinine Lvl 0.7 mg/dL 0.5 - 1.4 12/31/2011 Normal [facility] CHEMISTRY Potassium Lvl 3.9 meq/L 3.5 - 5.1 12/31/2011 Normal [facility] CHEMISTRY Sodium Lvl 140 meq/L 135 - 145 12/31/2011 Normal [facility] CHEMISTRY B/C Ratio 19 6 - 25 12/31/2011 Normal [facility] CHEMISTRY AGAP 10.9 meq/L 10.0 - 20.0 12/31/2011 Normal [facility] HEMATOLOGY MCHC 32.5 g/dL 32.0 - 36.0 12/31/2011 Normal [facility] HEMATOLOGY RDW 14.1 % 11.5 - 14.5 12/31/2011 Normal [facility] HEMATOLOGY Platelet 208 K/CMM 133 - 450 12/31/2011 Normal [facility] HEMATOLOGY MPV 9.1 fL 7.4 - 10.4 12/31/2011 Normal [facility] HEMATOLOGY MCV 90.5 fL 81.0 - 99.0 12/31/2011 Normal [facility] HEMATOLOGY Hgb 11.6 g/dL 12.0 - 16.0 12/31/2011 LOW [facility] HEMATOLOGY MCH 29.4 pg 27.0 - 31.0 12/31/2011 Normal [facility] HEMATOLOGY Hct 35.9 % 36.0 - 48.0 12/31/2011 LOW [facility] HEMATOLOGY RBC 3.96 M/CMM 4.20 - 5.40 12/31/2011 LOW [facility] HEMATOLOGY WBC 12.2 K/CMM 3.7 - 10.4 12/31/2011 [facility] HEMATOLOGY Segs-Bands # 7.3 K/CMM 1.5 - 8.1 12/31/2011 Normal [facility] HEMATOLOGY Monocytes # 1.4 K/CMM 0.0 - 0.8 12/31/2011 [facility] [place] HEMATOLOGY Eosinophils # 0.2 K/CMM 0.0 - 0.5 12/31/2011 Normal [facility] HEMATOLOGY Basophils # 0.1 K/CMM 0.0 - 0.2 12/31/2011 Normal [facility] HEMATOLOGY Lymphocytes # 3.2 K/CMM 1.0 - 5.5 12/31/2011 Normal [facility] HEMATOLOGY Lymphocytes 26.2 % 20.0 - 40.0 12/31/2011 Normal [facility] HEMATOLOGY Segs 60.0 % 45.0 - 75.0 12/31/2011 Normal [facility] HEMATOLOGY Eosinophils 1.7 % 0.0 - 4.0 12/31/2011 Normal [facility] HEMATOLOGY Monocytes 11.6 % 2.0 - 12.0 12/31/2011 Normal [facility] HEMATOLOGY Basophils 0.5 % 0.0 - 1.0 12/31/2011 Normal [facility] CHEMISTRY B/C Ratio 19 6 - 25 12/31/2011 Normal [facility] CHEMISTRY Globulin 4.6 g/dL 2.0 - 4.0 12/31/2011 [place] [facility] CHEMISTRY A/G Ratio 0.8 0.7 - 1.6 12/31/2011 Normal [facility] CHEMISTRY AGAP 11.8 meq/L 10.0 - 20.0 12/31/2011 Normal [facility] CHEMISTRY Sodium Lvl 138 meq/L 135 - 145 12/31/2011 Normal [facility] CHEMISTRY Chloride Lvl 101 meq/L 95 - 109 12/31/2011 Normal [facility] CHEMISTRY Potassium Lvl 3.8 meq/L 3.5 - 5.1 12/31/2011 Normal [facility] CHEMISTRY AST 24 unit/L 0 - 37 12/31/2011 Normal [facility] CHEMISTRY Albumin Lvl 3.6 g/dL 3.5 - 5.0 12/31/2011 Normal [facility] CHEMISTRY ALT 40 unit/L 0 - 65 12/31/2011 Normal [facility] CHEMISTRY Alk Phos 45 unit/L 39 - 136 12/31/2011 Normal [facility] CHEMISTRY Bili Total 0.6 mg/dL 0.2 - 1.3 12/31/2011 Normal [facility] CHEMISTRY CO2 29 meq/L 24 - 32 12/31/2011 Normal [facility] CHEMISTRY Calcium Lvl 9.5 mg/dL 8.5 - 10.5 12/31/2011 Normal [facility] CHEMISTRY Total Protein 8.2 g/dL 6.4 - 8.4 12/31/2011 Normal [facility] CHEMISTRY BUN 13 mg/dL 7 - 22 12/31/2011 Normal [facility] CHEMISTRY Creatinine Lvl 0.7 mg/dL 0.5 - 1.4 12/31/2011 Normal [facility] CHEMISTRY Glucose Lvl 124 mg/dL 70 - 99 12/31/2011 [facility] 6Interpretive Data: Adult reference range values reflect the clinical guidelines of the [place] [employer]. [facility] HEMATOLOGY Platelet 232 K/CMM 133 - 450 12/31/2011 Normal [facility] HEMATOLOGY RDW 14.3 % 11.5 - 14.5 12/31/2011 Normal [facility] HEMATOLOGY MPV 9.4 fL 7.4 - 10.4 12/31/2011 Normal [facility] HEMATOLOGY MCV 90.0 fL 81.0 - 99.0 12/31/2011 Normal [facility] HEMATOLOGY MCH 29.9 pg 27.0 - 31.0 12/31/2011 Normal [facility] HEMATOLOGY MCHC 33.2 g/dL 32.0 - 36.0 12/31/2011 Normal [facility] HEMATOLOGY RBC 4.65 M/CMM 4.20 - 5.40 12/31/2011 Normal [facility] HEMATOLOGY Hgb 13.9 g/dL 12.0 - 16.0 12/31/2011 Normal [facility] HEMATOLOGY Hct 41.8 % 36.0 - 48.0 12/31/2011 Normal [facility] HEMATOLOGY WBC 15.6 K/CMM 3.7 - 10.4 12/31/2011 [facility] HEMATOLOGY RBC Morph Normal (12/30/2011 19:59:00) 12/31/2011 Normal [facility] HEMATOLOGY Plt Morph Normal (12/30/2011 19:59:00) 12/31/2011 Normal [facility] HEMATOLOGY Segs 64.9 % 45.0 - 75.0 12/31/2011 Normal [facility] HEMATOLOGY Lymphocytes 23.7 % 20.0 - 40.0 12/31/2011 Normal [facility] HEMATOLOGY Basophils 0.3 % 0.0 - 1.0 12/31/2011 Normal [facility] HEMATOLOGY Monocytes 10.1 % 2.0 - 12.0 12/31/2011 Normal [facility] HEMATOLOGY Eosinophils 1.0 % 0.0 - 4.0 12/31/2011 Normal [facility] HEMATOLOGY Lymphocytes # 3.7 K/CMM 1.0 - 5.5 12/31/2011 Normal [facility] HEMATOLOGY Basophils # 0.0 K/CMM 0.0 - 0.2 12/31/2011 Normal [facility] HEMATOLOGY Monocytes # 1.6 K/CMM 0.0 - 0.8 12/31/2011 [facility] HEMATOLOGY Eosinophils # 0.2 K/CMM 0.0 - 0.5 12/31/2011 Normal [facility] HEMATOLOGY Segs-Bands # 10.1 K/CMM 1.5 - 8.1 12/31/2011 [facility] URINALYSIS UA Color [place] 12/30/2011 NA [facility] URINALYSIS UA Bili Negative *NA* (12/30/2011 18:00:00) Negative 12/30/2011 NA [facility] URINALYSIS UA Blood Negative (12/30/2011 18:00:00) Negative 12/30/2011 Normal [facility] URINALYSIS UA Glucose Negative mg/dL *NA* (12/30/2011 18:00:00) Negative 12/30/2011 NA [facility] URINALYSIS UA Ketones Trace mg/dL *ABN* (12/30/2011 18:00:00) Negative 12/30/2011 ABN [facility] URINALYSIS UA Urobilinogen 4.0 mg/dL 0.1 - 1.0 12/30/2011 [place] [facility] URINALYSIS UA Leuk Est Moderate *ABN* (12/30/2011 18:00:00) Negative 12/30/2011 ABN [facility] URINALYSIS UA Sq Epi Many /LPF *ABN* (12/30/2011 18:00:00) Few 12/30/2011 ABN [facility] URINALYSIS UA WBC 4 /HPF 0 - 5 12/30/2011 Normal [facility] URINALYSIS UA Nitrite Negative (12/30/2011 18:00:00) Negative 12/30/2011 Normal [facility] URINALYSIS UA Protein 30 mg/dL *ABN* (12/30/2011 18:00:00) Negative 12/30/2011 ABN [facility] URINALYSIS UA Spec Grav 1.024 <=1.030 12/30/2011 Normal [facility] URINALYSIS UA Turbidity Marked *ABN* (12/30/2011 18:00:00) Clear 12/30/2011 ABN [facility] URINALYSIS UA pH 5.0 5.0 - 8.0 12/30/2011 Normal [facility] URINALYSIS UA Bacteria Occasional /HPF *NA* (12/30/2011 18:00:00) None Seen 12/30/2011 NA [facility] URINALYSIS UA RBC 4 /HPF 0 - 2 12/30/2011 [place] [facility] URINALYSIS UA Mucus Many /LPF *ABN* (12/30/2011 18:00:00) None Seen 12/30/2011 ABN [facility] BEDSIDE GLUCOSE TESTING Gluc POC Lifscn 156 mg/dL 65 - 110 07/08/2011 [place] 1Interpretive Data: Upper Reportable Limit: 200 mg/dL. [facility] CHEMISTRY Sodium Lvl 141 meq/L 135 - 145 07/06/2011 Normal [facility] CHEMISTRY Potassium Lvl 4.4 meq/L 3.5 - 5.1 07/06/2011 Normal [facility] CHEMISTRY Chloride Lvl 104 meq/L 95 - 109 07/06/2011 Normal [facility] CHEMISTRY BUN 17 mg/dL 7 - 22 07/06/2011 Normal [facility] CHEMISTRY Glucose Lvl 121 mg/dL 07/06/2011 NA 2Interpretive Data: Reference Ranges : 0 - 7 days : 41 - 90 mg/dL7 days - 150 yrs : 70 - 99 mg/dL (fasting), based on the clinical recommendations of the [place] [employer]. [facility] CHEMISTRY Calcium Lvl 9.8 mg/dL 8.5 - 10.5 07/06/2011 Normal [facility] CHEMISTRY CO2 25 meq/L 24 - 32 07/06/2011 Normal [facility] CHEMISTRY Creatinine Lvl 0.8 mg/dL 0.5 - 1.4 07/06/2011 Normal [facility] CHEMISTRY AGAP 16.4 meq/L 10.0 - 20.0 07/06/2011 Normal [facility] BEDSIDE GLUCOSE TESTING Gluc POC Lifscn 151 mg/dL 65 - 110 05/18/2011 [place] 1Interpretive Data: Upper Reportable Limit: 200 mg/dL. [facility] BEDSIDE GLUCOSE TESTING Gluc POC Lifscn 189 mg/dL 65 - 110 05/18/2011 [place] 2Interpretive Data: Upper Reportable Limit: 200 mg/dL. [facility] BEDSIDE GLUCOSE TESTING Gluc POC Lif[place]n 136 mg/dL 65 - 110 05/18/2011 [place] 3Interpretive Data: Upper Reportable Limit: 200 mg/dL. [facility] BEDSIDE GLUCOSE TESTING Comment1 Notify RN/ 05/18/2011 NA [facility] CHEMISTRY Calcium Lvl 8.9 mg/dL 8.5 - 10.5 05/18/2011 Normal [facility] CHEMISTRY CO2 28 meq/L 24 - 32 05/18/2011 Normal [facility] CHEMISTRY Potassium Lvl 3.8 meq/L 3.5 - 5.1 05/18/2011 Normal [facility] CHEMISTRY Chloride Lvl 106 meq/L 95 - 109 05/18/2011 Normal [facility] CHEMISTRY Creatinine Lvl 0.8 mg/dL 0.5 - 1.4 05/18/2011 Normal [facility] CHEMISTRY BUN 7 mg/dL 7 - 22 05/18/2011 Normal [facility] CHEMISTRY Sodium Lvl 143 meq/L 135 - 145 05/18/2011 Normal [facility] CHEMISTRY Glucose Lvl 131 mg/dL 05/18/2011 NA 4Interpretive Data: Reference Ranges : 0 - 7 days : 41 - 90 mg/dL7 days - 150 yrs : 70 - 99 mg/dL (fasting), based on the clinical recommendations of the [place] [employer]. [facility] CHEMISTRY AGAP 12.8 meq/L 10.0 - 20.0 05/18/2011 Normal [facility] HEMATOLOGY Basophils # 0.0 K/CMM 0.0 - 0.2 05/18/2011 Normal [facility] HEMATOLOGY Lymphocytes 31.0 % 20.0 - 40.0 05/18/2011 Normal [facility] HEMATOLOGY Monocytes 10.6 % 2.0 - 12.0 05/18/2011 Normal [facility] HEMATOLOGY Eosinophils # 0.3 K/CMM 0.0 - 0.5 05/18/2011 Normal [facility] HEMATOLOGY Monocytes # 0.8 K/CMM 0.0 - 0.8 05/18/2011 Normal [facility] HEMATOLOGY Segs 53.3 % 45.0 - 75.0 05/18/2011 Normal [facility] HEMATOLOGY Segs-Bands # 4.1 K/CMM 1.5 - 8.1 05/18/2011 Normal [facility] HEMATOLOGY Lymphocytes # 2.4 K/CMM 1.0 - 5.5 05/18/2011 Normal [facility] HEMATOLOGY Eosinophils 4.5 % 0.0 - 4.0 05/18/2011 [place] [facility] HEMATOLOGY Basophils 0.6 % 0.0 - 1.0 05/18/2011 Normal [facility] HEMATOLOGY Hgb 11.4 g/dL 12.0 - 16.0 05/18/2011 LOW [facility] HEMATOLOGY MCV 88.0 fL 81.0 - 99.0 05/18/2011 Normal [facility] HEMATOLOGY RBC 3.79 M/CMM 4.20 - 5.40 05/18/2011 LOW [facility] HEMATOLOGY WBC 7.6 K/CMM 3.7 - 10.4 05/18/2011 Normal [facility] HEMATOLOGY Hct 33.4 % 36.0 - 48.0 05/18/2011 LOW [facility] HEMATOLOGY Platelet 235 K/CMM 133 - 450 05/18/2011 Normal [facility] HEMATOLOGY RDW 14.1 % 11.5 - 14.5 05/18/2011 Normal [facility] HEMATOLOGY MCHC 34.0 g/dL 32.0 - 36.0 05/18/2011 Normal [facility] HEMATOLOGY MPV 9.0 fL 7.4 - 10.4 05/18/2011 Normal [facility] HEMATOLOGY MCH 29.9 pg 27.0 - 31.0 05/18/2011 Normal [facility] BEDSIDE GLUCOSE TESTING Comment1 Notify ASHLI 05/18/2011 NA [facility] STOOL TESTS Occult Bld Stl Negative (05/17/2011 20:30:00) Negative 05/18/2011 Normal [facility] BEDSIDE GLUCOSE TESTING Comment1 Notify ASHLI 05/17/2011 NA [facility] BEDSIDE GLUCOSE TESTING Comment2 Notify ASHLI 05/16/2011 NA [facility] BEDSIDE GLUCOSE TESTING Comment2 Notify ASHLI 05/16/2011 NA [facility] CHEMISTRY AST 22 U/L 0 - 37 05/16/2011 Normal [facility] CHEMISTRY AGAP 12.2 meq/L 10.0 - 20.0 05/16/2011 Normal [facility] CHEMISTRY CO2 29 meq/L 24 - 32 05/16/2011 Normal [facility] CHEMISTRY Calcium Lvl 8.2 mg/dL 8.5 - 10.5 05/16/2011 LOW [facility] CHEMISTRY Sodium Lvl 143 meq/L 135 - 145 05/16/2011 Normal [facility] CHEMISTRY Chloride Lvl 106 meq/L 95 - 109 05/16/2011 Normal [facility] CHEMISTRY Bili Total 0.3 mg/dL 0.2 - 1.3 05/16/2011 Normal [facility] CHEMISTRY Alk Phos 32 U/L 39 - 136 05/16/2011 LOW [facility] CHEMISTRY ALT 42 U/L 0 - 65 05/16/2011 Normal [facility] CHEMISTRY Globulin 3.4 g/dL 2.0 - 4.0 05/16/2011 Normal [facility] CHEMISTRY Total Protein 6.4 g/dL 6.4 - 8.4 05/16/2011 Normal [facility] CHEMISTRY A/G Ratio 0.9 0.7 - 1.6 05/16/2011 Normal [facility] CHEMISTRY Albumin Lvl 3.0 g/dL 3.5 - 5.0 05/16/2011 LOW [facility] CHEMISTRY B/C Ratio 16 6 - 25 05/16/2011 Normal [facility] CHEMISTRY Glucose Lvl 101 mg/dL 05/16/2011 NA 5Interpretive Data: Reference Ranges : 0 - 7 days : 41 - 90 mg/dL7 days - 150 yrs : 70 - 99 mg/dL (fasting), based on the clinical recommendations of the [place] [employer]. [facility] CHEMISTRY BUN 13 mg/dL 7 - 22 05/16/2011 Normal [facility] CHEMISTRY Creatinine Lvl 0.8 mg/dL 0.5 - 1.4 05/16/2011 Normal [facility] CHEMISTRY Potassium Lvl 4.2 meq/L 3.5 - 5.1 05/16/2011 Normal [facility] CHEMISTRY Vitamin B12 Lvl 328 pg/mL 254 - 1320 05/16/2011 Normal [facility] CHEMISTRY % [place] 11 % 12 - 57 05/16/2011 LOW [facility] CHEMISTRY UIBC 289 ug/dl 110 - 370 05/16/2011 Normal [facility] CHEMISTRY Iron 36 ug/dl 30 - 160 05/16/2011 Normal [facility] CHEMISTRY TIBC 325 ug/dl 228 - 428 05/16/2011 Normal [facility] HEMATOLOGY Monocytes # 1.0 K/CMM 0.0 - 0.8 05/16/2011 [place] [facility] HEMATOLOGY Eosinophils # 0.0 K/CMM 0.0 - 0.5 05/16/2011 Normal [facility] HEMATOLOGY Lymphocytes # 2.8 K/CMM 1.0 - 5.5 05/16/2011 Normal [facility] HEMATOLOGY Basophils # 0.1 K/CMM 0.0 - 0.2 05/16/2011 Normal [facility] HEMATOLOGY Lymphocytes 26.6 % 20.0 - 40.0 05/16/2011 Normal [facility] HEMATOLOGY Segs 62.9 % 45.0 - 75.0 05/16/2011 Normal [facility] HEMATOLOGY Segs-Bands # 6.6 K/CMM 1.5 - 8.1 05/16/2011 Normal [facility] HEMATOLOGY Basophils 0.6 % 0.0 - 1.0 05/16/2011 Normal [facility] HEMATOLOGY Eosinophils 0.4 % 0.0 - 4.0 05/16/2011 Normal [facility] HEMATOLOGY Monocytes 9.5 % 2.0 - 12.0 05/16/2011 Normal [facility] HEMATOLOGY Platelet 247 K/CMM 133 - 450 05/16/2011 Normal [facility] HEMATOLOGY WBC 10.4 K/CMM 3.7 - 10.4 05/16/2011 Normal [facility] HEMATOLOGY Hgb 11.5 g/dL 12.0 - 16.0 05/16/2011 LOW [facility] HEMATOLOGY Hct 34.2 % 36.0 - 48.0 05/16/2011 LOW [facility] HEMATOLOGY RBC 3.85 M/CMM 4.20 - 5.40 05/16/2011 LOW [facility] HEMATOLOGY MCV 88.7 fL 81.0 - 99.0 05/16/2011 Normal [facility] HEMATOLOGY MCH 29.9 pg 27.0 - 31.0 05/16/2011 Normal [facility] HEMATOLOGY MCHC 33.7 g/dL 32.0 - 36.0 05/16/2011 Normal [facility] HEMATOLOGY RDW 14.1 % 11.5 - 14.5 05/16/2011 Normal [facility] HEMATOLOGY MPV 8.6 fL 7.4 - 10.4 05/16/2011 Normal [facility] URINALYSIS UA WBC None Seen (05/15/2011 14:20:00) None Seen 05/15/2011 Normal [facility] URINALYSIS UA RBC None Seen (05/15/2011 14:20:00) 0 - 2 05/15/2011 Normal [facility] URINALYSIS UA Bacteria None Seen (05/15/2011 14:20:00) None Seen 05/15/2011 Normal [facility] URINALYSIS Micro? Performed (05/15/2011 14:20:00) 05/15/2011 Normal [facility] URINALYSIS UA Sq Epi Few /LPF (05/15/2011 14:20:00) Few 05/15/2011 Normal [facility] URINALYSIS UA Mucus Few /LPF (05/15/2011 14:20:00) None Seen 05/15/2011 Normal [facility] URINALYSIS UA Urobilinogen 0.2 EU/dL 0.1 - 1.0 05/15/2011 Normal [facility] URINALYSIS UA Blood Negative (05/15/2011 14:20:00) Negative 05/15/2011 Normal [facility] URINALYSIS UA Leuk Est Negative (05/15/2011 14:20:00) Negative 05/15/2011 Normal [facility] URINALYSIS UA Nitrite Negative (05/15/2011 14:20:00) Negative 05/15/2011 Normal [facility] URINALYSIS UA Spec Grav 1.025 <=1.030 05/15/2011 Normal [facility] URINALYSIS UA Turbidity Clear (05/15/2011 14:20:00) Clear 05/15/2011 Normal [facility] URINALYSIS UA Glucose Negative (05/15/2011 14:20:00) Negative 05/15/2011 Normal [facility] URINALYSIS UA pH 5.0 5.0 - 8.0 05/15/2011 Normal [facility] URINALYSIS UA Ketones Trace *ABN* (05/15/2011 14:20:00) Negative 05/15/2011 ABN [facility] URINALYSIS UA Protein Negative (05/15/2011 14:20:00) Negative 05/15/2011 Normal [facility] URINALYSIS UA Color [place] *ABN* (05/15/2011 14:20:00) Yellow 05/15/2011 ABN [facility] URINALYSIS UA Bili Negative *NA* (05/15/2011 14:20:00) Negative 05/15/2011 NA [facility] HEMATOLOGY MCV 87.8 fL 81.0 - 99.0 05/15/2011 Normal [facility] HEMATOLOGY MCH 29.9 pg 27.0 - 31.0 05/15/2011 Normal [facility] HEMATOLOGY Hgb 13.9 g/dL 12.0 - 16.0 05/15/2011 Normal [facility] HEMATOLOGY MPV 9.0 fL 7.4 - 10.4 05/15/2011 Normal [facility] HEMATOLOGY MCHC 34.1 g/dL 32.0 - 36.0 05/15/2011 Normal [facility] HEMATOLOGY RDW 14.3 % 11.5 - 14.5 05/15/2011 Normal [facility] HEMATOLOGY Platelet 184 K/CMM 133 - 450 05/15/2011 Normal [facility] HEMATOLOGY WBC 15.3 K/CMM 3.7 - 10.4 05/15/2011 [facility] HEMATOLOGY RBC 4.63 M/CMM 4.20 - 5.40 05/15/2011 Normal [facility] HEMATOLOGY Hct 40.6 % 36.0 - 48.0 05/15/2011 Normal [facility] HEMATOLOGY Lymphocytes # 5.6 K/CMM 1.0 - 5.5 05/15/2011 [facility] HEMATOLOGY Lymphocytes 36.6 % 20.0 - 40.0 05/15/2011 Normal [facility] HEMATOLOGY Monocytes 9.3 % 2.0 - 12.0 05/15/2011 Normal [facility] HEMATOLOGY Eosinophils 1.5 % 0.0 - 4.0 05/15/2011 Normal [facility] HEMATOLOGY Basophils 0.6 % 0.0 - 1.0 05/15/2011 Normal [facility] HEMATOLOGY Segs-Bands # 7.9 K/CMM 1.5 - 8.1 05/15/2011 Normal [facility] HEMATOLOGY Monocytes # 1.4 K/CMM 0.0 - 0.8 05/15/2011 [place] [facility] HEMATOLOGY Eosinophils # 0.2 K/CMM 0.0 - 0.5 05/15/2011 Normal [facility] HEMATOLOGY Basophils # 0.1 K/CMM 0.0 - 0.2 05/15/2011 Normal [facility] HEMATOLOGY Segs 52.0 % 45.0 - 75.0 05/15/2011 Normal [facility] CHEMISTRY Lipase Lvl 153 U/L 73 - 393 05/15/2011 Normal [facility] CHEMISTRY A/G Ratio 0.8 0.7 - 1.6 05/15/2011 Normal [facility] CHEMISTRY Globulin 4.6 g/dL 2.0 - 4.0 05/15/2011 [place] [facility] CHEMISTRY B/C Ratio 20 6 - 25 05/15/2011 Normal [facility] CHEMISTRY AGAP 14.4 meq/L 10.0 - 20.0 05/15/2011 Normal [facility] CHEMISTRY AST 22 U/L 0 - 37 05/15/2011 Normal [facility] CHEMISTRY Creatinine Lvl 0.6 mg/dL 0.5 - 1.4 05/15/2011 Normal [facility] CHEMISTRY Bili Total 0.6 mg/dL 0.2 - 1.3 05/15/2011 Normal [facility] CHEMISTRY Sodium Lvl 137 meq/L 135 - 145 05/15/2011 Normal [facility] CHEMISTRY ALT 49 U/L 0 - 65 05/15/2011 Normal [facility] CHEMISTRY Albumin Lvl 3.8 g/dL 3.5 - 5.0 05/15/2011 Normal [facility] CHEMISTRY Total Protein 8.4 g/dL 6.4 - 8.4 05/15/2011 Normal [facility] CHEMISTRY Calcium Lvl 9.6 mg/dL 8.5 - 10.5 05/15/2011 Normal [facility] CHEMISTRY Alk Phos 43 U/L 39 - 136 05/15/2011 Normal [facility] CHEMISTRY Glucose Lvl 104 mg/dL 05/15/2011 NA 6Interpretive Data: Reference Ranges : 0 - 7 days : 41 - 90 mg/dL7 days - 150 yrs : 70 - 99 mg/dL (fasting), based on the clinical recommendations of the [place] [employer]. [facility] CHEMISTRY BUN 12 mg/dL 7 - 22 05/15/2011 Normal [facility] CHEMISTRY CO2 24 meq/L 24 - 32 05/15/2011 Normal [facility] CHEMISTRY Chloride Lvl 103 meq/L 95 - 109 05/15/2011 Normal [facility] CHEMISTRY Potassium Lvl 4.4 meq/L 3.5 - 5.1 05/15/2011 Normal [facility] Vital Signs Vital Sign Value Date Comments Source Weight 92.273 09/05/2018 [facility] BMI Calculated 36.04 09/05/2018 [facility] Height 160.02 cm 09/05/2018 [facility] BMI Calculated 34.44 09/05/2017 [facility] Weight 88.182 09/05/2017 [facility] Systolic (mm Hg) 153 09/05/2017 [facility] Diastolic (mm Hg) 93 09/05/2017 [facility] Temperature Oral (F) 98.2 F 09/05/2017 [facility] Height 160.02 cm 09/05/2017 [facility] Respitory Rate 18 09/05/2017 [facility] Heart Rate 96 09/05/2017 [facility] Systolic (mm Hg) 115 02/19/2015 [facility] Diastolic (mm Hg) 80 02/19/2015 [facility] Heart Rate 90 02/19/2015 [facility] Respitory Rate 16 02/19/2015 [facility] Weight 93.636 02/18/2015 [facility] Temperature Oral (F) 98.3 F 02/18/2015 [facility] Heart Rate 98 02/18/2015 [facility] Systolic (mm Hg) 118 02/18/2015 [facility] Diastolic (mm Hg) 83 02/18/2015 [facility] Respitory Rate 18 02/18/2015 [facility] Temperature Oral (F) 98.3 F 12/30/2014 [facility] Systolic (mm Hg) 108 12/30/2014 [facility] Diastolic (mm Hg) 76 12/30/2014 [facility] Respitory Rate 23 12/30/2014 [facility] Systolic (mm Hg) 106 12/30/2014 [facility] Diastolic (mm Hg) 79 12/30/2014 [facility] Respitory Rate 19 12/30/2014 [facility] Systolic (mm Hg) 117 12/30/2014 [facility] Respitory Rate 14 12/30/2014 [facility] Diastolic (mm Hg) 87 12/30/2014 [facility] Heart Rate 82 12/30/2014 [facility] Temperature Oral (F) 98.4 F 12/30/2014 [facility] Weight 90.909 12/29/2014 [facility] BMI Calculated 36.66 12/29/2014 [facility] Heart Rate 92 12/29/2014 [facility] Temperature Oral (F) 98.3 F 12/29/2014 [facility] Height 157.48 cm 12/29/2014 [facility] Systolic (mm Hg) 118 03/07/2014 [facility] Diastolic (mm Hg) 62 03/07/2014 [facility] Respitory Rate 18 03/07/2014 [facility] Systolic (mm Hg) 85 03/07/2014 [facility] Respitory Rate 18 03/07/2014 [facility] Diastolic (mm Hg) 46 03/07/2014 [facility] Diastolic (mm Hg) 58 03/07/2014 [facility] Respitory Rate 18 03/07/2014 [facility] Systolic (mm Hg) 102 03/07/2014 [facility] Temperature Oral (F) 98.1 F 03/03/2014 [facility] Height 160.02 cm 03/03/2014 [facility] Weight 91.364 03/03/2014 [facility] BMI Calculated 35.68 03/03/2014 [facility] Temperature Oral (F) 98 F 03/27/2012 [facility] Heart Rate 118 03/27/2012 [facility] Respitory Rate 20 03/27/2012 [facility] Systolic (mm Hg) 133 03/27/2012 [facility] Diastolic (mm Hg) 88 03/27/2012 [facility] Systolic (mm Hg) 120 03/27/2012 [facility] Diastolic (mm Hg) 83 03/27/2012 [facility] Respitory Rate 20 03/27/2012 [facility] Heart Rate 91 03/27/2012 [facility] Temperature Oral (F) 98 F 03/27/2012 [facility] Diastolic (mm Hg) 79 03/27/2012 [facility] Systolic (mm Hg) 116 03/27/2012 [facility] Respitory Rate 18 03/27/2012 [facility] Heart Rate 102 03/27/2012 [facility] Temperature Oral (F) 97.9 F 03/27/2012 [facility] Weight 92.273 03/22/2012 [facility] Height 160.02 cm 03/22/2012 [facility] Weight 92.273 03/12/2012 [facility] Height 160.02 cm 03/12/2012 [facility] Diastolic (mm Hg) 74 03/10/2012 [facility] Systolic (mm Hg) 110 03/10/2012 [facility] Temperature Oral (F) 98.8 F 03/10/2012 [facility] Respitory Rate 18 03/10/2012 [facility] Heart Rate 81 03/10/2012 [facility] Respitory Rate 18 03/10/2012 [facility] Systolic (mm Hg) 106 03/10/2012 [facility] Diastolic (mm Hg) 70 03/10/2012 [facility] Temperature Oral (F) 98.3 F 03/10/2012 [facility] Respitory Rate 18 03/10/2012 [facility] Heart Rate 86 03/10/2012 [facility] Systolic (mm Hg) 105 03/10/2012 [facility] Diastolic (mm Hg) 75 03/10/2012 [facility] Heart Rate 80 03/10/2012 [facility] Temperature Oral (F) 97.6 F 03/10/2012 [facility] Weight 99.545 03/06/2012 [facility] Height 160.02 cm 03/06/2012 [facility] Weight 92.273 03/01/2012 [facility] Height 160.02 cm 03/01/2012 [facility] Systolic (mm Hg) 123 01/03/2012 [facility] Diastolic (mm Hg) 77 01/03/2012 [facility] Respitory Rate 17 01/03/2012 [facility] Heart Rate 83 01/03/2012 [facility] Temperature Oral (F) 98.5 F 01/03/2012 [facility] Respitory Rate 16 01/03/2012 [facility] Systolic (mm Hg) 120 01/03/2012 [facility] Heart Rate 81 01/03/2012 [facility] Diastolic (mm Hg) 79 01/03/2012 [facility] Temperature Oral (F) 98.0 F 01/03/2012 [facility] Diastolic (mm Hg) 86 01/03/2012 [facility] Systolic (mm Hg) 125 01/03/2012 [facility] Temperature Oral (F) 97.7 F 01/03/2012 [facility] Heart Rate 83 01/03/2012 [facility] Respitory Rate 20 01/03/2012 [facility] Height 160.02 cm 12/31/2011 [facility] Weight 94.091 12/31/2011 [facility] Height 160.02 cm 12/30/2011 [facility] Weight 90.909 12/30/2011 [facility] Diastolic (mm Hg) 69 07/08/2011 [facility] Systolic (mm Hg) 115 07/08/2011 [facility] Heart Rate 78 07/08/2011 [facility] Respitory Rate 14 07/08/2011 [facility] Systolic (mm Hg) 86 07/08/2011 [facility] Respitory Rate 14 07/08/2011 [facility] Heart Rate 86 07/08/2011 [facility] Diastolic (mm Hg) 53 07/08/2011 [facility] Heart Rate 85 07/08/2011 [facility] Diastolic (mm Hg) 47 07/08/2011 [facility] Systolic (mm Hg) 86 07/08/2011 [facility] Respitory Rate 12 07/08/2011 [facility] Temperature Oral (F) 98.6 F 07/06/2011 [facility] Height 160.02 cm 07/06/2011 [facility] Weight 92.273 07/06/2011 [facility] Systolic (mm Hg) 143 05/18/2011 [facility] Diastolic (mm Hg) 87 05/18/2011 [facility] Respitory Rate 18 05/18/2011 [facility] Temperature Oral (F) 97.6 F 05/18/2011 [facility] Heart Rate 71 05/18/2011 [facility] Temperature Oral (F) 98.4 F 05/18/2011 [facility] Diastolic (mm Hg) 77 05/18/2011 [facility] Systolic (mm Hg) 115 05/18/2011 [facility] Respitory Rate 18 05/18/2011 [facility] Heart Rate 66 05/18/2011 [facility] Respitory Rate 20 05/18/2011 [facility] Heart Rate 80 05/18/2011 [facility] Systolic (mm Hg) 127 05/18/2011 [facility] Diastolic (mm Hg) 81 05/18/2011 [facility] Temperature Oral (F) 98.5 F 05/18/2011 [facility] Weight 91.364 05/15/2011 [facility] Height 160.02 cm 05/15/2011 [facility] Encounters Location Location Details Encounter Type Encounter Number Reason For Visit Attending Provider ADM Date DC Date Status Source [facility] Inpatient [id number] TOY ZAPATA 05/15/2011 05/18/2011 Active [facility] PHIL [id number] OSIEL NAYLOR 07/08/2011 07/08/2011 Active [facility] OD [id number] 719.4 - PAIN IN JOINT SAUL WATTERS 11/11/2011 Active [facility] [id number] TOY ZAPATA 12/30/2011 01/03/2012 Active [facility] Inpatient [id number] KAELA WILL 03/05/2012 03/10/2012 Active [facility] Emergency [id number] DUSTIN ANJU 03/12/2012 03/12/2012 Active [facility] Inpatient [id number] TOY ZAPATA 03/22/2012 03/27/2012 Active [facility] Outpatient [id number] BISMARK GREENWOOD 04/01/2013 04/01/2013 Active [facility] [place] Out[facility] [id number] Bismark Tamanna 06/27/2013 06/28/2013 [facility] [place] [facility] [place] [facility] [id number] Bismark Tamanna 01/08/2014 01/09/2014 [facility] [place] Bedded Outpatient [id number] Osiel Naylor 03/07/2014 03/07/2014 [facility] [id number] Carlito Ibarra 12/29/2014 12/30/2014 [facility] [place] [facility] [id number] Nakita Stewart 01/09/2015 01/10/2015 [facility] [id number] Kasi Burch 02/18/2015 02/19/2015 [facility] [place] Outpt [facility] [id number] Bismark Tamanna 03/05/2015 03/06/2015 [facility] [place] [place] [facility] [id number] Bismark Tamanna 04/08/2016 04/09/2016 [facility] [place] [facility] [id number] Bismark Tamanna 04/20/2016 04/21/2016 [facility] [place] [facility] Emergency [id number] Russell Feliz 09/05/2017 09/05/2017 [facility] [place] [facility] [id number] Bismark Tamanna 10/06/2017 10/07/2017 [facility] Outpatient [id number] Bismark Tamanna 02/05/2018 02/06/2018 [facility] Outpatient [id number] Bismark Tamanna 08/09/2018 08/10/2018 [facility] Outpatient [id number] Bismark Tamanna 09/05/2018 09/06/2018 [facility] Outpatient [id number] Bismark Tamanna 09/24/2018 09/25/2018 [facility] Outpatient [id number] ALDOSTERONOMA/INJURY OF URETER ROCHELLE ART Active [facility] Procedures Procedure Code Date Perfomer Comments Source Cystectomy [id number] [facility] Oophorectomy of remaining solitary ovary [id number] [facility] Sigmoid colectomy and colostomy [id number] [facility] Ureter operation [id number] [facility] Cystectomy [id number] [facility] Oophorectomy of remaining solitary ovary [id number] [facility] Sigmoid colectomy and colostomy [id number] [facility] Ureter operation [id number] [facility]
--- OUTSIDE RECORDS SUMMARY | 2018-10-10 07:53 | XMS REPORT | Summary of Care ---
Author Author [facility] Organization [facility] Address Unknown Phone Unavailable Encounter HQ Ethel(FIN) [id number] Date(s): 09/05/17 - 09/05/17 [facility] [address] [place] [address]- Encounter Diagnosis Shingles (Discharge Diagnosis) - 09/05/17 Discharge Disposition: Home or Self Care Attending Physician: Russell Feliz MD Vital Signs Most recent to 1 oldest [Reference Range]: Height 160.02 cm (09/05/17 3:35 PM) Temperature Oral 98.2 DegF [96.4-99.1 DegF] (09/05/17 3:35 PM) Blood Pressure 153/93 mmHg [90-140/60-90 mmHg] *HI* (09/05/17 3:35 PM) Respiratory Rate 18 BRMIN [14-20 BRMIN] (09/05/17 3:35 PM) Peripheral Pulse 96 bpm Rate [60-100 bpm] (09/05/17 3:35 PM) Weight 88.182 kg (09/05/17 3:35 PM) Body Mass Index 34.44 m2 (09/05/17 3:35 PM) Problem List Condition Effective Dates Status Health Status Informant Acid Resolved reflux(Confirmed) Back pain(Confirmed) Resolved Constipation1 03/05/12 Active Diabetes Active mellitus(Confirmed) Diverticular disease 03/05/12 Active of colon2 Diverticulitis(Confi Active rmed) Diverticulitis(Confi Resolved rmed) DM (diabetes Resolved mellitus), type 2(Confirmed) Hip pain(Confirmed) Resolved Hypercholesterolemia Active (Confirmed) Left lower quadrant 03/05/12 Active pain3 Sigmoid Active colectomy(Confirmed) Sleep Active apnea(Confirmed) 1Data migrated from [employer] on 10/04/14. 2Data migrated from [employer] on 10/04/14. 3Data migrated from [employer] on 10/04/14. Allergies, Adverse Reactions, Alerts Substance Reaction Severity Status morphine Active Medications Lidoderm 5% topical film (patch) 1 patch, TOP, Daily, Placed patch on 12 hours off 12 hours, # 30 patch, 0 Refill (s) Start Date: 09/05/17 Status: Ordered Ultram 50 mg oral tablet 50 mg=1 tab, PO, Q4H, PRN pain, X 3 day, # 20 tab, 0 Refill(s) Start Date: 09/05/17 Stop Date: 09/08/17 Status: Ordered Valtrex 1 g oral tablet 1 gm=1 tab, PO, Q8H, X 7 day, # 21 tab, 0 Refill(s) Start Date: 09/05/17 Stop Date: 09/12/17 Status: Ordered Results No data available for this section Immunizations No data available for this section Procedures Procedure Date Related Diagnosis Body Site Status Cystectomy Completed Oophorectomy of remaining solitary ovary Completed Sigmoid colectomy and colostomy Completed Ureter operation Completed Social History Social History Type Response Alcohol Never, Alcohol use interferes with work or home: No. Drinks more than intended: No. Others hurt by drinking: No. Ready to change: No. Household alcohol concerns: No. Smoking Status Never smoker; Exposure to Tobacco Smoke None; Cigarette Smoking Last 365 Days No; Reg Smoking Cessation Counseling No entered on: 09/05/17 Assessment and Plan No data available for this section
--- OUTSIDE RECORDS SUMMARY | 2018-10-10 07:53 | XMS REPORT | CCD ---
Author Author Auto Generated Organization [facility] Address Unknown Phone Unavailable Care Team Providers Care Labor Relations Director Name Role Phone Osiel Naylor RP Allergies, Adverse Reactions, Alerts Substance Reaction Status morphine Active NKDA Canceled Problem List Condition Effective Dates Status Diabetes mellitus Active Diverticulitis Active Hypercholesterolemia Active Sleep apnea Active Medications Medication Instructions Start Date End Date Status Lactated Ringers IV 1,000 mL, Rate: 40 ml/hr, Infuse 07/08/2011 07/08/2011 Discontinued 1,000 mL 1000 mL over: 25 hr, Route: IV, Total Volume: 1,000, Start date: 07/08/11 6:47:00, Duration: 30 day, Stop date: 08/07/11 6:46:00 meloxicam 15 mg oral PO, Daily, Substitution Allowed, 07/06/2011 Ordered tablet TAB Vital Signs Most recent to oldest [Reference Range]: 1 2 3 Height 160.02 cm (07/06/2011 10:18:00) Temperature Oral [96.4-99.1 DegF] 98.6 DegF (07/06/2011 11:13:00) Systolic Blood Pressure [90-140 mmHg] 115 mmHg (07/08/2011 08:01:00) 86 mmHg *LOW* (07/08/2011 07:49:00) 86 mmHg *LOW* (07/08/2011 07:36:00) Diastolic Blood Pressure [60-90 mmHg] 69 mmHg (07/08/2011 08:01:00) 53 mmHg *LOW* (07/08/2011 07:49:00) 47 mmHg *LOW* (07/08/2011 07:36:00) Respiratory Rate [14-20 BRMIN] 14 BRMIN (07/08/2011 08:01:00) 14 BRMIN (07/08/2011 07:49:00) 12 BRMIN *LOW* (07/08/2011 07:36:00) Peripheral Pulse Rate [60-100 bpm] 78 bpm (07/08/2011 08:01:00) 86 bpm (07/08/2011 07:49:00) 85 bpm (07/08/2011 07:36:00) Weight 92.273 kg (07/06/2011 10:18:00) Results BEDSIDE GLUCOSE TESTING Most recent to oldest [Reference Range]: 1 Gluc POC Lifscn [65-110 mg/dL] 156 mg/dL 1 *HI* (07/08/2011 06:54:00) 1Interpretive Data: Upper Reportable Limit: 200 mg/dL. CHEMISTRY Most recent to oldest [Reference Range]: 1 Sodium Lvl [135-145 mEq/L] 141 mEq/L (07/06/2011 11:30:00) Potassium Lvl [3.5-5.1 mEq/L] 4.4 mEq/L (07/06/2011 11:30:00) Chloride Lvl [95-109 mEq/L] 104 mEq/L (07/06/2011 11:30:00) CO2 [24-32 mEq/L] 25 mEq/L (07/06/2011 11:30:00) AGAP [10.0-20.0 mEq/L] 16.4 mEq/L (07/06/2011 11:30:00) Creatinine Lvl [0.5-1.4 mg/dL] 0.8 mg/dL (07/06/2011 11:30:00) BUN [7-22 mg/dL] 17 mg/dL (07/06/2011 11:30:00) Glucose Lvl 121 mg/dL 2 *NA* (07/06/2011 11:30:00) Calcium Lvl [8.5-10.5 mg/dL] 9.8 mg/dL (07/06/2011 11:30:00) 2Interpretive Data: Reference Ranges : 0 - 7 days : 41 - 90 mg/dL7 days - 150 yrs : 70 - 99 mg/dL (fasting), based on the clinical recommendations of the [place] [employer].
--- OUTSIDE RECORDS SUMMARY | 2018-10-10 07:53 | XMS REPORT | Summary of Care ---
Author Author [facility] [place] Organization [facility] [place] Address Unknown Phone Unavailable Encounter ADIN Davenport(FELICIA) [id number] Date(s): 10/06/17 - 10/06/17 [facility] [place] [address] [place] [address] [phone] Discharge Disposition: Home or Self Care Attending Physician: Bismark Nolen MD Vital Signs No data available for this section Problem List Condition Effective Dates Status Health [...] [employer] on 10/04/14. 3Data migrated from [employer] on 10/04/14. Allergies, Adverse Reactions, Alerts Substance Reaction Severity Status morphine Active Medications No data available for this section Results No data available for this section [...]
--- OUTSIDE RECORDS SUMMARY | 2018-10-10 07:54 | XMS REPORT | Summary of Care ---
Author Organization Unknown Address Unknown Phone Unavailable Encounter [facility] Grantr_jenifer(FELICIA) [id number] Date(s): 01/08/14 - 01/08/14 [facility] Outpatient Imaging - [address] [address]- [place] Discharge Disposition: Home Physician Attending: Bismark Nolen MD Reason for Visit 724.3 - SCIAT[place] Problem List Condition Effective Dates Status Health Status Informant Diabetes Active mellitus(Confirmed) Diverticulitis(Confi Active rmed) Hypercholesterolemia Active (Confirmed) Sigmoid Active colectomy(Confirmed) Sleep Active apnea(Confirmed) Allergies, Adverse Reactions, Alerts Substance Reaction Severity Status morphine Active Medications No data available for this section Medications Administered During Your Visit No data available for this section Immunizations No data available for this section
--- OUTSIDE RECORDS SUMMARY | 2018-10-10 07:54 | XMS REPORT | CCD ---
Author Author Auto Generated Organization [facility] Address Unknown Phone Unavailable Care Team Providers Care Line Rider Name Role Phone Jose Cordova RP Allergies, Adverse Reactions, Alerts Substance Reaction Status morphine Active Problem List Condition Effective Dates Status Diabetes mellitus Active Diverticulitis Active Hypercholesterolemia Active Sigmoid colectomy Active Sleep apnea Active Medications Medication Instructions Start Date End Date Status Omnipaque 300 100 mL, 0 ml/hr, Route: INJ, Drug 06/29/2012 06/29/2012 Completed Form: SANDI, CHIDI, Start date: 06/29/12 9:00:00, Stop date: 06/29/12 9:00:00
--- OUTSIDE RECORDS SUMMARY | 2018-10-10 07:54 | XMS REPORT | CCD ---
Author Author Auto Generated Organization [facility] Address Unknown Phone Unavailable Care Team Providers Care Furnace Builder Name Role Phone Nba Zapata CP Allergies, Adverse Reactions, Alerts Substance Reaction Status morphine Active Problem List Condition Effective Dates Status Diabetes mellitus Active Diverticulitis Active Hypercholesterolemia Active Sleep apnea Active Medications Medication Instructions Start Date End Date Status Dextrose 50% Syringe 25 mL, Route: IVP, Dosing Weight 12/30/2011 12/30/2011 Deleted 94.091, kg, PRN, PRN Blood Glucose Results, Start date: 12/30/11 22:42:00, Duration: 30 day, Stop date: 01/29/12 22:41:00 insulin aspart 9 unit, Route: SUB-Q, Sliding 12/30/2011 12/31/2011 Deleted Scale, Dosing Weight 94.091, kg, PRN Blood Glucose Results, Start date: 12/30/11 22:42:00, Duration: 30 day, Stop date: 01/29/12 22:41:00 insulin aspart 12 unit, Route: SUB-Q, Sliding 12/30/2011 12/30/2011 Deleted Scale, Dosing Weight 94.091, kg, PRN Blood Glucose Results, Start date: 12/30/11 22:42:00, Duration: 30 day, Stop date: 01/29/12 22:41:00 insulin aspart 6 unit, Route: SUB-Q, Sliding 12/30/2011 12/31/2011 Deleted Scale, Dosing Weight 94.091, kg, PRN Blood Glucose Results, Start date: 12/30/11 22:42:00, Duration: 30 day, Stop date: 01/29/12 22:41:00 insulin aspart 15 unit, Route: SUB-Q, Sliding 12/30/2011 12/31/2011 Deleted Scale, Dosing Weight 94.091, kg, PRN Blood Glucose Results, Start date: 12/30/11 22:42:00, Duration: 30 day, Stop date: 01/29/12 22:41:00 Dextrose 50% Syringe 50 mL, Route: IVP, Dosing Weight 12/30/2011 12/30/2011 Deleted 94.091, kg, PRN, PRN Blood Glucose Results, Start date: 12/30/11 22:42:00, Duration: 30 day, Stop date: 01/29/12 22:41:00 glucagon 1 mg, Route: IM, PRN, Dosing Weight 12/30/2011 12/30/2011 Deleted 94.091, kg, PRN Blood Glucose Results, Start date: 12/30/11 22:42:00, Duration: 30 day, Stop date: 01/29/12 22:41:00 insulin aspart 3 unit, Route: SUB-Q, Sliding 12/30/2011 12/31/2011 Deleted Scale, Dosing Weight 94.091, kg, PRN Blood Glucose Results, Start date: 12/30/11 22:42:00, Duration: 30 day, Stop date: 01/29/12 22:41:00 insulin aspart 10 unit, Route: SUB-Q, Sliding 12/30/2011 12/30/2011 Deleted Scale, Dosing Weight 94.091, kg, PRN Blood Glucose Results, Start date: 12/30/11 22:42:00, Duration: 30 day, Stop date: 01/29/12 22:41:00 insulin aspart 8 unit, Route: SUB-Q, Sliding 12/30/2011 12/31/2011 Deleted Scale, Dosing Weight 94.091, kg, PRN Blood Glucose Results, Start date: 12/30/11 22:42:00, Duration: 30 day, Stop date: 01/29/12 22:41:00 insulin aspart 6 unit, Route: SUB-Q, Sliding 12/30/2011 12/30/2011 Deleted Scale, Dosing Weight 94.091, kg, PRN Blood Glucose Results, Start date: 12/30/11 22:42:00, Duration: 30 day, Stop date: 01/29/12 22:41:00 insulin aspart 4 unit, Route: SUB-Q, Sliding 12/30/2011 12/30/2011 Deleted Scale, Dosing Weight 94.091, kg, PRN Blood Glucose Results, Start date: 12/30/11 22:42:00, Duration: 30 day, Stop date: 01/29/12 22:41:00 insulin aspart 2 unit, Route: SUB-Q, Sliding 12/30/2011 12/30/2011 Deleted Scale, Dosing Weight 94.091, kg, PRN Blood Glucose Results, Start date: 12/30/11 22:42:00, Duration: 30 day, Stop date: 01/29/12 22:41:00 Flagyl 500 mg, Route: IVPB, Q8H, Dosing 12/30/2011 12/30/2011 Deleted Weight 90.909, kg, Priority: STAT, Start date: 12/30/11 22:18:00, Duration: 30 day, Stop date: 01/29/12 16:00:00 normal saline 0.9% 1,000 mL, Rate: 100 ml/hr, Infuse 12/30/2011 01/03/2012 Discontinued IV 1,000 mL over: 10 hr, Route: IV, Dosing Weight 90.909 kg, Total Volume: 1,000, Start date: 12/30/11 21:59:00, Duration: 30 day, Stop date: 01/29/12 21:58:00 ceftriaxone 1 gm, Route: IVPB, Q24H, Dosing 12/30/2011 12/30/2011 Deleted Weight 90.909, kg, Priority: STAT, Start date: 12/30/11 22:18:00, Duration: 30 day, Stop date: 01/28/12 22:18:00 Flagyl 500 mg, 100 mL, Route: IVPB, Drug 12/31/2011 01/03/2012 Discontinued form: INJ, Q6H, kg, Start date: 12/31/11 3:00:00, Duration: 30 day, Stop date: 01/29/12 21:00:00 Rocephin + normal 1 gm, Route: IVPB, Drug form: 12/30/2011 01/03/2012 Discontinued saline 0.9% IV 100 PDR/INJ, Q24H, kg, Start date: mL 12/30/11 22:00:00, Duration: 30 day, Stop date: 01/29/12 20:00:00 Nexium 40 mg oral 40 mg, 1 cap, PO, Daily, 12/30/2011 Ordered delayed release Substitution Allowed capsule Sodium Chloride 0.9% 1,000 mL, Rate: 100 ml/hr, Infuse 12/30/2011 12/30/2011 Deleted IV 1000 mL over: 10 hr, Route: IV, Dosing Weight 90.909 kg, Total Volume: 1,000, Start date: 12/30/11 22:18:00, Duration: 30 day, Stop date: 01/29/12 22:17:00 Tylenol 650 mg, 2 tab, Route: PO, Drug 12/31/2011 01/03/2012 Discontinued form: TAB, Q4H, PRN Other -See Comment, Start date: 12/31/11 19:10:00, Duration: 30 day, Stop date: 01/30/12 19:09:00 Tylenol 650 mg, 2 tab, Route: PO, Drug 12/31/2011 01/03/2012 Discontinued form: TAB, Q4H, kg, PRN Pain, Start date: 12/31/11 18:41:00, Duration: 30 day, Stop date: 01/30/12 18:40:00 Dilaudid 0.5 mg, Route: IV, Q4H, Dosing 12/30/2011 12/30/2011 Deleted Weight 90.909, kg, PRN Pain, Start date: 12/30/11 22:18:00, Duration: 30 day, Stop date: 01/29/12 22:17:00 Dilaudid 0.5 mg, 0.5 mL, Route: IV, Drug 12/30/2011 01/03/2012 Discontinued form: SOLN, Q4H, kg, PRN Pain, Start date: 12/30/11 21:56:00, Duration: 30 day, Stop date: 01/29/12 21:55:00 Cipro 500 mg oral 500 mg, 1 tab, PO, [id number], 20 tab, 01/02/2012 01/12/2012 Ordered tablet Substitution Allowed, TAB Sodium Chloride 0.9% 1,000 mL, Rate: 100 ml/hr, Infuse 12/30/2011 12/30/2011 Discontinued IV 1,000 mL over: 10 hr, Route: IV, Dosing Weight 90.909 kg, Total Volume: 1,000, Start date: 12/30/11 21:55:00, Duration: 30 day, Stop date: 01/29/12 21:54:00 Sodium Chloride 0.9% 1,000 mL, Rate: 125 ml/hr, Infuse 12/30/2011 12/30/2011 Deleted IV 1000 mL over: 8 hr, Route: IV, Dosing Weight 90.909 kg, Total Volume: 1,000, Start date: 12/30/11 22:18:00, Duration: 30 day, Stop date: 01/29/12 22:17:00 Saline Flush 0.9% 5 ml, Route: IVP, Drug Form: INJ, 12/30/2011 01/03/2012 Discontinued kg, PRN, PRN Line Flush, Start date: 12/30/11 22:18:00, Duration: 30 day, Stop date: 01/29/12 22:17:00 ondansetron 4 mg, 2 mL, Route: IVP, Drug form: 12/30/2011 01/03/2012 Discontinued INJ, Q6H, kg, PRN Nausea & Vomiting, Start date: 12/30/11 22:18:00, Duration: 30 day, Stop date: 01/29/12 22:17:00 Sodium Chloride 0.9% 500 mL, Rate: 500 ml/hr, Infuse 12/30/2011 12/30/2011 Completed (Bolus) IV 500 mL over: 1 hr, Route: IV, kg, Total Volume: 500, Bolus Dose, Priority: STAT, Start date: 12/30/11 20:31:00, Duration: 1 doses or times, Stop date: 12/30/11 21:30:00 Flagyl 500 mg, Route: IVPB, ONCE, Dosing 12/30/2011 12/30/2011 Completed Weight 90.909, kg, Priority: STAT, Start date: 12/30/11 20:31:00, Stop date: 12/30/11 20:31:00 ceftriaxone 1 gm, Route: IVPB, ONCE, Dosing 12/30/2011 12/30/2011 Completed Weight 90.909, kg, Priority: STAT, Start date: 12/30/11 20:31:00, Stop date: 12/30/11 20:31:00 Flagyl 500 mg oral 500 mg, 1 tab, PO, Q8H, 30 tab, 01/02/2012 01/12/2012 Ordered tablet Substitution Allowed glucagon 1 mg, Route: IM, Drug form: 12/30/2011 01/03/2012 Discontinued PDR/INJ, PRN, kg, PRN Blood Glucose Results, Start date: 12/30/11 22:03:00, Duration: 30 day, Stop date: 01/29/12 22:02:00 insulin aspart 4 unit, 0.04 mL, Route: SUB-Q, Drug 12/30/2011 01/03/2012 Discontinued form: SOLN, TID-Before Meals, kg, PRN Blood Glucose Results, Start date: 12/30/11 22:03:00, Duration: 30 day, Stop date: 01/29/12 22:02:00 insulin aspart 2 unit, 0.02 mL, Route: SUB-Q, Drug 12/30/2011 01/03/2012 Discontinued form: SOLN, TID-Before Meals, kg, PRN Blood Glucose Results, Start date: 12/30/11 22:03:00, Duration: 30 day, Stop date: 01/29/12 22:02:00 insulin aspart 10 unit, 0.1 mL, Route: SUB-Q, Drug 12/30/2011 01/03/2012 Discontinued form: SOLN, TID-Before Meals, kg, PRN Blood Glucose Results, Start date: 12/30/11 22:03:00, Duration: 30 day, Stop date: 01/29/12 22:02:00 insulin aspart 8 unit, 0.08 mL, Route: SUB-Q, Drug 12/30/2011 01/03/2012 Discontinued form: SOLN, TID-Before Meals, kg, PRN Blood Glucose Results, Start date: 12/30/11 22:03:00, Duration: 30 day, Stop date: 01/29/12 22:02:00 insulin aspart 6 unit, 0.06 mL, Route: SUB-Q, Drug 12/30/2011 01/03/2012 Discontinued form: SOLN, TID-Before Meals, kg, PRN Blood Glucose Results, Start date: 12/30/11 22:03:00, Duration: 30 day, Stop date: 01/29/12 22:02:00 Dextrose 50% Syringe 12.5 gm, 25 mL, Route: IVP, Drug 12/30/2011 01/03/2012 Discontinued Form: INJ, kg, PRN, PRN Blood Glucose Results, Start date: 12/30/11 22:03:00, Duration: 30 day, Stop date: 01/29/12 22:02:00 Dextrose 50% Syringe 25 gm, 50 mL, Route: IVP, Drug 12/30/2011 01/03/2012 Discontinued Form: INJ, kg, PRN, PRN Blood Glucose Results, Start date: 12/30/11 22:03:00, Duration: 30 day, Stop date: 01/29/12 22:02:00 Cipro 500 mg, 1 tab, Route: PO, Drug 01/02/2012 01/03/2012 Discontinued form: TAB, [id number], kg, Start date: 01/02/12 12:00:00, Duration: 30 day, Stop date: 02/01/12 0:00:00 Vital Signs Most recent to oldest [Reference Range]: 1 2 3 Height 160.02 cm (12/30/2011 22:23:00) 160.02 cm (12/30/2011 17:41:00) Temperature Oral [96.4-99.1 DegF] 98.5 DegF (01/03/2012 12:00:00) 98.0 DegF (01/03/2012 08:00:00) 97.7 DegF (01/03/2012 05:00:00) Systolic Blood Pressure [90-140 mmHg] 123 mmHg (01/03/2012 12:00:00) 120 mmHg (01/03/2012 08:00:00) 125 mmHg (01/03/2012 05:00:00) Diastolic Blood Pressure [60-90 mmHg] 77 mmHg (01/03/2012 12:00:00) 79 mmHg (01/03/2012 08:00:00) 86 mmHg (01/03/2012 05:00:00) Respiratory Rate [14-20 BRMIN] 17 BRMIN (01/03/2012 12:00:00) 16 BRMIN (01/03/2012 08:00:00) 20 BRMIN (01/03/2012 05:00:00) Peripheral Pulse Rate [60-100 bpm] 83 bpm (01/03/2012 12:00:00) 81 bpm (01/03/2012 08:00:00) 83 bpm (01/03/2012 05:00:00) Weight 94.091 kg (12/30/2011 22:23:00) 90.909 kg (12/30/2011 17:41:00) Results BEDSIDE GLUCOSE TESTING Most recent to [facility] [Reference Range]: 1 2 3 Gluc POC Lifscn [70-99 mg/dL] 178 mg/dL 1 *HI* (01/03/2012 11:49:00) 143 mg/dL 2 *HI* (01/03/2012 06:10:00) 156 mg/dL 3 *HI* (01/02/2012 23:22:00) Comment1 Notify RN/MD *NA* (01/03/2012 06:10:00) Notify RN/MD *NA* (01/02/2012 12:29:00) Notify RN/MD *NA* (01/02/2012 05:50:00) 1Interpretive Data: Upper Reportable Limit: 200 mg/dL. 2Interpretive Data: Upper Reportable Limit: 200 mg/dL. 3Interpretive Data: Upper Reportable Limit: 200 mg/dL. URINALYSIS Most recent to [facility] [Reference Range]: 1 2 3 UA Turbidity [Clear] Marked *ABN* (12/30/2011 18:00:00) UA Color Haley *NA* (12/30/2011 18:00:00) UA pH [5.0-8.0] 5.0 (12/30/2011 18:00:00) UA Spec Grav [<=1.030] 1.024 (12/30/2011 18:00:00) UA Glucose [Negative mg/dL] Negative mg/dL *NA* (12/30/2011 18:00:00) UA Blood [Negative] Negative (12/30/2011 18:00:00) UA Ketones [Negative mg/dL] Trace mg/dL *ABN* (12/30/2011 18:00:00) UA Protein [Negative mg/dL] 30 mg/dL *ABN* (12/30/2011 18:00:00) UA Urobilinogen [0.1-1.0 mg/dL] 4.0 mg/dL *HI* (12/30/2011 18:00:00) UA Bili [Negative] Negative *NA* (12/30/2011 18:00:00) UA Leuk Est [Negative] Moderate *ABN* (12/30/2011 18:00:00) UA Nitrite [Negative] Negative (12/30/2011 18:00:00) UA WBC [0-5 /HPF] 4 /HPF (12/30/2011 18:00:00) UA RBC [0-2 /HPF] 4 /HPF *HI* (12/30/2011 18:00:00) UA Bacteria [None Seen /HPF] Occasional /HPF *NA* (12/30/2011 18:00:00) UA Sq Epi [Few /LPF] Many /LPF *ABN* (12/30/2011 18:00:00) UA Mucus [None Seen /LPF] Many /LPF *ABN* (12/30/2011 18:00:00) CHEMISTRY Most recent to oldest [Reference Range]: 1 2 3 Sodium Lvl [135-145 mEq/L] 143 mEq/L (01/01/2012 05:24:00) 140 mEq/L (12/31/2011 04:16:00) 138 mEq/L (12/30/2011 19:59:00) Potassium Lvl [3.5-5.1 mEq/L] 3.9 mEq/L (01/01/2012 05:24:00) 3.9 mEq/L (12/31/2011 04:16:00) 3.8 mEq/L (12/30/2011 19:59:00) Chloride Lvl [95-109 mEq/L] 106 mEq/L (01/01/2012 05:24:00) 104 mEq/L (12/31/2011 04:16:00) 101 mEq/L (12/30/2011 19:59:00) CO2 [24-32 mEq/L] 25 mEq/L (01/01/2012 05:24:00) 29 mEq/L (12/31/2011 04:16:00) 29 mEq/L (12/30/2011 19:59:00) AGAP [10.0-20.0 mEq/L] 15.9 mEq/L (01/01/2012 05:24:00) 10.9 mEq/L (12/31/2011 04:16:00) 11.8 mEq/L (12/30/2011 19:59:00) Creatinine Lvl [0.5-1.4 mg/dL] 0.6 mg/dL (01/01/2012 05:24:00) 0.7 mg/dL (12/31/2011 04:16:00) 0.7 mg/dL (12/30/2011 19:59:00) BUN [7-22 mg/dL] 8 mg/dL (01/01/2012 05:24:00) 13 mg/dL (12/31/2011 04:16:00) 13 mg/dL (12/30/2011 19:59:00) B/C Ratio [6-25] 19 (12/31/2011 04:16:00) 19 (12/30/2011 19:59:00) Glucose Lvl [70-99 mg/dL] 132 mg/dL 4 *HI* (01/01/2012 05:24:00) 137 mg/dL 5 *HI* (12/31/2011 04:16:00) 124 mg/dL 6 *HI* (12/30/2011 19:59:00) Total Protein [6.4-8.4 g/dL] 6.5 g/dL (12/31/2011 04:16:00) 8.2 g/dL (12/30/2011 19:59:00) Albumin Lvl [3.5-5.0 g/dL] 3.0 g/dL *LOW* (12/31/2011 04:16:00) 3.6 g/dL (12/30/2011 19:59:00) Globulin [2.0-4.0 g/dL] 3.5 g/dL (12/31/2011 04:16:00) 4.6 g/dL *HI* (12/30/2011 19:59:00) A/G Ratio [0.7-1.6] 0.9 (12/31/2011 04:16:00) 0.8 (12/30/2011 19:59:00) Calcium Lvl [8.5-10.5 mg/dL] 8.8 mg/dL (01/01/2012 05:24:00) 8.6 mg/dL (12/31/2011 04:16:00) 9.5 mg/dL (12/30/2011 19:59:00) ALT [0-65 unit/L] 31 unit/L (12/31/2011 04:16:00) 40 unit/L (12/30/2011 19:59:00) AST [0-37 unit/L] 20 unit/L (12/31/2011 04:16:00) 24 unit/L (12/30/2011 19:59:00) Alk Phos [39-136 unit/L] 39 unit/L (12/31/2011 04:16:00) 45 unit/L (12/30/2011 19:59:00) Bili Total [0.2-1.3 mg/dL] 0.5 mg/dL (12/31/2011 04:16:00) 0.6 mg/dL (12/30/2011 19:59:00) 4Interpretive Data: Adult reference range values reflect the clinical guidelines of the [place] [employer]. 5Interpretive Data: Adult reference range values reflect the clinical guidelines of the [place] [employer]. 6Interpretive Data: Adult reference range values reflect the clinical guidelines of the [place] [employer]. HEMATOLOGY Most recent to oldest [Reference Range]: 1 2 3 WBC [3.7-10.4 K/CMM] 8.8 K/CMM (01/01/2012 05:24:00) 12.2 K/CMM *HI* (12/31/2011 04:16:00) 15.6 K/CMM *HI* (12/30/2011 19:59:00) RBC [4.20-5.40 M/CMM] 3.88 M/CMM *LOW* (01/01/2012 05:24:00) 3.96 M/CMM *LOW* (12/31/2011 04:16:00) 4.65 M/CMM (12/30/2011 19:59:00) Hgb [12.0-16.0 g/dL] 11.6 g/dL *LOW* (01/01/2012 05:24:00) 11.6 g/dL *LOW* (12/31/2011 04:16:00) 13.9 g/dL (12/30/2011 19:59:00) Hct [36.0-48.0 %] 34.8 % *LOW* (01/01/2012 05:24:00) 35.9 % *LOW* (12/31/2011 04:16:00) 41.8 % (12/30/2011 19:59:00) MCV [81.0-99.0 fL] 89.6 fL (01/01/2012 05:24:00) 90.5 fL (12/31/2011 04:16:00) 90.0 fL (12/30/2011 19:59:00) MCH [27.0-31.0 pg] 29.8 pg (01/01/2012 05:24:00) 29.4 pg (12/31/2011 04:16:00) 29.9 pg (12/30/2011 19:59:00) MCHC [32.0-36.0 g/dL] 33.3 g/dL (01/01/2012 05:24:00) 32.5 g/dL (12/31/2011 04:16:00) 33.2 g/dL (12/30/2011 19:59:00) RDW [11.5-14.5 %] 14.0 % (01/01/2012 05:24:00) 14.1 % (12/31/2011 04:16:00) 14.3 % (12/30/2011 19:59:00) Platelet [133-450 K/CMM] 226 K/CMM (01/01/2012 05:24:00) 208 K/CMM (12/31/2011 04:16:00) 232 K/CMM (12/30/2011 19:59:00) MPV [7.4-10.4 fL] 9.1 fL (01/01/2012 05:24:00) 9.1 fL (12/31/2011 04:16:00) 9.4 fL (12/30/2011 19:59:00) Segs [45.0-75.0 %] 57.2 % (01/01/2012 05:24:00) 60.0 % (12/31/2011 04:16:00) 64.9 % (12/30/2011 19:59:00) Lymphocytes [20.0-40.0 %] 26.7 % (01/01/2012 05:24:00) 26.2 % (12/31/2011 04:16:00) 23.7 % (12/30/2011 19:59:00) Monocytes [2.0-12.0 %] 10.5 % (01/01/2012 05:24:00) 11.6 % (12/31/2011 04:16:00) 10.1 % (12/30/2011 19:59:00) Eosinophils [0.0-4.0 %] 5.2 % *HI* (01/01/2012 05:24:00) 1.7 % (12/31/2011 04:16:00) 1.0 % (12/30/2011 19:59:00) Basophils [0.0-1.0 %] 0.4 % (01/01/2012 05:24:00) 0.5 % (12/31/2011 04:16:00) 0.3 % (12/30/2011 19:59:00) Segs-Bands # [1.5-8.1 K/CMM] 5.0 K/CMM (01/01/2012 05:24:00) 7.3 K/CMM (12/31/2011 04:16:00) 10.1 K/CMM *HI* (12/30/2011 19:59:00) Lymphocytes # [1.0-5.5 K/CMM] 2.3 K/CMM (01/01/2012 05:24:00) 3.2 K/CMM (12/31/2011 04:16:00) 3.7 K/CMM (12/30/2011 19:59:00) Monocytes # [0.0-0.8 K/CMM] 0.9 K/CMM *HI* (01/01/2012 05:24:00) 1.4 K/CMM *HI* (12/31/2011 04:16:00) 1.6 K/CMM *HI* (12/30/2011 19:59:00) Eosinophils # [0.0-0.5 K/CMM] 0.5 K/CMM (01/01/2012 05:24:00) 0.2 K/CMM (12/31/2011 04:16:00) 0.2 K/CMM (12/30/2011 19:59:00) Basophils # [0.0-0.2 K/CMM] 0.0 K/CMM (01/01/2012 05:24:00) 0.1 K/CMM (12/31/2011 04:16:00) 0.0 K/CMM (12/30/2011 19:59:00) RBC Morph Normal (12/30/2011 19:59:00) Plt Morph Normal (12/30/2011 19:59:00)
--- OUTSIDE RECORDS SUMMARY | 2018-10-10 07:54 | XMS REPORT | CCD ---
Author Author Auto Generated Organization [facility] Address Unknown Phone Unavailable Care Team Providers Care Certified Peer Specialist Name Role Phone Maria D Noble RP Allergies, Adverse Reactions, Alerts Substance Reaction Status morphine Active Problem List Condition Effective Dates Status Diabetes mellitus Active Diverticulitis Active Hypercholesterolemia Active Sigmoid colectomy Active Sleep apnea Active Medications Medication Instructions Start Date End Date Status Protonix 40 mg, 1 tab, Route: PO, Drug form: 03/05/2012 03/10/2012 Discontinued ECTAB, Before Dinner, Start date: 03/05/12 21:00:00, Duration: 30 day, Stop date: 04/04/12 16:30:00 Bystolic 2.5 mg, 1 tab, Route: PO, Drug 03/06/2012 03/10/2012 Discontinued form: TAB, Daily, Start date: 03/06/12 9:00:00, Duration: 30 day, Stop date: 04/04/12 9:00:00 Entereg 12 mg, 1 cap, Route: PO, Drug form: 03/05/2012 03/05/2012 Completed CAP, ONCE, Start date: 03/05/12 9:15:00, Stop date: 03/05/12 9:15:00 Ofirmev 1,000 mg, 100 mL, Route: IV, Drug 03/05/2012 03/08/2012 Discontinued form: INJ, Q6H, Dosing Weight 92.273, kg, for > or=50 kg, Start date: 03/05/12 10:50:00, Stop date: 04/04/12 12:00:00, Scheduled not PRN Zocor 20 mg, 1 tab, Route: PO, Drug form: 03/05/2012 03/10/2012 Discontinued TAB, Bedtime, Start date: 03/05/12 21:00:00, Duration: 30 day, Stop date: 04/03/12 21:00:00 multivitamin with 1 tab, Route: PO, Drug Form: TAB, 03/06/2012 03/10/2012 Discontinued minerals Daily, Start date: 03/06/12 9:00:00, Duration: 30 day, Stop date: 04/04/12 9:00:00 naloxone 0.04 mg, Route: IVP, Q2MIN, Dosing 03/05/2012 03/05/2012 Deleted Weight 92.273, kg, PRN Narcotic Reversal, Start date: 03/05/12 16:38:00, Duration: 8 doses or times, Stop date: Limited # of times meperidine 12.5 mg, 0.25 mL, Route: IVP, Drug 03/05/2012 03/05/2012 Discontinued form: INJ, Q30Min, Dosing Weight 92.273, kg, PRN Other -See Comment, For shivering, Start date: 03/05/12 16:38:00, Duration: 2 doses or times, Stop date: Limited # of times flumazenil 0.2 mg, 2 mL, Route: IVP, Drug 03/05/2012 03/05/2012 Discontinued form: INJ, PRN, Dosing Weight 92.273, kg, PRN Benzodiazepine Reversal, Initial dose, Start date: 03/05/12 16:38:00, Duration: 30 day, Stop date: 04/04/12 15:37:00 fentanyl 25 microgram, 0.5 mL, Route: IVP, 03/05/2012 03/05/2012 Discontinued Drug form: INJ, Q5Min, Dosing Weight 92.273, kg, PRN Pain Score 4-6, Start date: 03/05/12 16:38:00, Duration: 4 doses or times, Stop date: Limited # of times hydromorphone 0.5 mg, 0.25 mL, Route: IVP, Drug 03/05/2012 03/05/2012 Discontinued form: INJ, Q5Min, Dosing Weight 92.273, kg, PRN Pain Score 4-6, Start date: 03/05/12 16:38:00, Duration: 5 doses or times, Stop date: Limited # of times ondansetron 4 mg, 2 mL, Route: IVP, Drug form: 03/05/2012 03/05/2012 Discontinued INJ, ONCE, Dosing Weight 92.273, kg, PRN Nausea & Vomiting, Start date: 03/05/12 16:38:00 acetaminophen-hydroc 1 tab, Route: PO, Drug Form: TAB, 03/05/2012 03/05/2012 Discontinued odone 325 mg-5 mg Dosing Weight 92.273, kg, Q4H, PRN oral tablet Pain Score 1-3, Start date: 03/05/12 16:38:00, Duration: 30 day, Stop date: 04/04/12 16:37:00 acetaminophen-hydroc 2 tab, Route: PO, Drug Form: TAB, 03/05/2012 03/05/2012 Discontinued odone 325 mg-5 mg Dosing Weight 92.273, kg, Q4H, PRN oral tablet Pain Score 4-6, Start date: 03/05/12 16:38:00, Duration: 30 day, Stop date: 04/04/12 16:37:00 Sodium Chloride 0.9% 1,000 mL, Rate: 25 ml/hr, Infuse 03/05/2012 03/05/2012 Discontinued IV 1,000 mL over: 40 hr, Route: IV, kg, Total Volume: 1,000, Start date: 03/05/12 9:23:00, Duration: 30 day, Stop date: 04/04/12 9:22:00 Lactated Ringers 1,000 mL, Rate: 25 ml/hr, Infuse 03/05/2012 03/05/2012 Discontinued Injection IV 1,000 over: 40 hr, Route: IV, kg, Total mL Volume: 1,000, Start date: 03/05/12 9:23:00, Duration: 30 day, Stop date: 04/04/12 9:22:00 acetaminophen 1,000 mg, 2 tab, Route: PO, Drug 03/06/2012 03/06/2012 Deleted form: TAB, Q6H, PRN Pain, Start date: 03/06/12 8:03:00, Duration: 30 day, Stop date: 04/05/12 8:02:00 magnesium sulfate 2 gm, 50 mL, Route: IVPB, Drug 03/06/2012 03/06/2012 Completed form: INJ, ONCE, Start date: 03/06/12 8:03:00, Stop date: 03/06/12 8:03:00 Entereg 12 mg, 1 cap, Route: PO, Drug form: 03/06/2012 03/06/2012 Completed CAP, ONCE, Dosing Weight 99.545, kg, Start date: 03/06/12 11:04:00, Stop date: 03/06/12 11:04:00 nalbuphine 2 mg, 0.2 mL, Route: IVP, Drug 03/05/2012 03/10/2012 Discontinued form: INJ, Q2H, Dosing Weight 92.273, kg, PRN Itching, Start date: 03/05/12 10:53:00, Duration: 5 doses or times, Stop date: Limited # of times naloxone 0.04 mg, 0.04 mL, Route: IVP, Drug 03/05/2012 03/10/2012 Discontinued form: INJ, Q2MIN, Dosing Weight 92.273, kg, PRN Narcotic Reversal, Start date: 03/05/12 10:53:00, Duration: 30 day, Stop date: 04/04/12 9:52:00 hydromorphone 0.2 6 mg, 30 mL, Route: IV, [employer] Dose: 03/05/2012 03/07/2012 Discontinued mg/mL [employer] (6 mg/30 0.2 mg, [employer] Lockout: 10 minutes, mL) INJ Syringe 6 Continuous Basal Rate: 0 mg, 4 Hour mg Limit (In MG): 6, Drug Form: INJ, Continuous, Pain, Start date: 03/05/12 10:53:00, Duration: 30 day, Stop date: 04/04/12 9:52:00 Lovenox 40 mg, 0.4 mL, Route: SUB-Q, Drug 03/05/2012 03/08/2012 Discontinued form: INJ, [id number], Dosing Weight 92.273, kg, Start date: 03/05/12 16:00:00, Duration: 30 day, Stop date: 04/03/12 6:00:00 Entereg 12 mg, 1 cap, Route: PO, Drug form: 03/05/2012 03/10/2012 Discontinued CAP, BID, Dosing Weight 92.273, kg, Start date: 03/05/12 17:00:00, Duration: 30 day, Stop date: 04/04/12 9:00:00 NS + KCL 20mEq/L 1,000 mL, Rate: 40 ml/hr, Infuse 03/05/2012 03/10/2012 Discontinued 1000ml (Premix) over: 25 hr, Route: IV, kg, Total 1,000 mL Volume: 1,000, Start date: 03/05/12 10:53:00, Stop date: 04/04/12 10:52:00 diphenhydrAMINE 25 mg, 1 tab, Route: PO, Drug form: 03/05/2012 03/10/2012 Discontinued TAB, Bedtime, Dosing Weight 92.273, kg, PRN Insomnia, Start date: 03/05/12 10:53:00, Duration: 30 day, Stop date: 04/04/12 10:52:00 famotidine 20 mg, 2 mL, Route: IVP, Drug form: 03/05/2012 03/10/2012 Discontinued INJ, Q12H, Dosing Weight 92.273, kg, Start date: 03/05/12 21:00:00, Duration: 30 day, Stop date: 04/04/12 9:00:00 acetaminophen 650 mg, 2 tab, Route: PO, Drug 03/05/2012 03/10/2012 Discontinued form: TAB, Q4H, Dosing Weight 92.273, kg, PRN Pain Score 1-3, Start date: 03/05/12 10:53:00, Duration: 30 day, Stop date: 04/04/12 10:52:00 ondansetron 4 mg, 2 mL, Route: IVP, Drug form: 03/05/2012 03/10/2012 Discontinued INJ, Q6H, Dosing Weight 92.273, kg, PRN Nausea & Vomiting, Start date: 03/05/12 10:53:00, Duration: 30 day, Stop date: 04/04/12 10:52:00 multivitamin with 1 cap, PO, Daily, 60 cap, 03/01/2012 Ordered minerals Multiple Substitution Allowed, Maintenance, Vitamins with Zinc CAP oral capsule sulfamethoxazole-tri 1 tab, Route: PO, Drug Form: TAB, 03/08/2012 03/10/2012 Discontinued methoprim 800 mg-160 [id number], Start date: 03/08/12 mg oral tablet 9:00:00, Duration: 30 day, Stop date: 04/06/12 9:00:00 Norwell 5/325 oral 1 tab, Route: PO, Drug Form: TAB, 03/09/2012 03/10/2012 Discontinued tablet Dosing Weight 99.545, kg, Q6H, PRN Pain Score 1-5, Start date: 03/09/12 12:45:00, Duration: 30 day, Stop date: 04/08/12 12:44:00 Norwell 5/325 oral 2 tab, Route: PO, Drug Form: TAB, 03/09/2012 03/10/2012 Discontinued tablet Dosing Weight 99.545, kg, Q6H, PRN Pain Score 4-6, Start date: 03/09/12 12:45:00, Duration: 30 day, Stop date: 04/08/12 12:44:00 Entereg 12 mg, 1 cap, Route: PO, Drug form: 03/05/2012 03/07/2012 Completed CAP, ONCE, Dosing Weight 92.273, kg, Start date: 03/05/12 9:25:00, Stop date: 03/05/12 9:25:00 Invanz + Sodium 1 gm, Route: IVPB, ONCE, Dosing 03/05/2012 03/07/2012 Completed Chloride 0.9% IV 100 Weight 92.273, kg, Start date: mL 03/05/12 9:25:00, Stop date: 03/05/12 9:25:00 Glucophage 1,000 mg, 2 tab, Route: PO, Drug 03/06/2012 03/05/2012 Canceled form: TAB, BID-Meals, Start date: 03/06/12 8:00:00, Duration: 30 day, Stop date: 04/04/12 17:00:00 Amaryl 4 mg, 1 tab, Route: PO, Drug form: 03/06/2012 03/05/2012 Canceled TAB, Daily, Start date: 03/06/12 9:00:00, Duration: 30 day, Stop date: 04/04/12 9:00:00 Vital Signs Most recent to oldest [Reference Range]: 1 2 3 Height 160.02 cm (03/05/2012 20:19:00) 160.02 cm (03/01/2012 12:22:00) Current Weight 97.727 kg (03/07/2012 05:43:00) Temperature Oral [96.4-99.1 DegF] 98.8 DegF (03/10/2012 12:00:00) 98.3 DegF (03/10/2012 08:00:00) 97.6 DegF (03/10/2012 04:00:00) Systolic Blood Pressure [90-140 mmHg] 110 mmHg (03/10/2012 12:00:00) 106 mmHg (03/10/2012 08:00:00) 105 mmHg (03/10/2012 04:00:00) Diastolic Blood Pressure [60-90 mmHg] 74 mmHg (03/10/2012 12:00:00) 70 mmHg (03/10/2012 08:00:00) 75 mmHg (03/10/2012 04:00:00) Respiratory Rate [14-20 BRMIN] 18 BRMIN (03/10/2012 12:00:00) 18 BRMIN (03/10/2012 09:00:00) 18 BRMIN (03/10/2012 08:00:00) Peripheral Pulse Rate [60-100 bpm] 81 bpm (03/10/2012 12:00:00) 86 bpm (03/10/2012 08:00:00) 80 bpm (03/10/2012 04:00:00) Weight 99.545 kg (03/05/2012 20:19:00) 92.273 kg (03/01/2012 12:22:00) Results BODY FLUIDS Most recent to oldest [Reference Range]: 1 2 3 Creatinine BF 0.8 mg/dL 1 *NA* (03/09/2012 08:55:00) Creat BF Type Other *NA* (03/09/2012 08:55:00) 1Interpretive Data: No established reference ranges. BEDSIDE GLUCOSE TESTING Most recent to oldest [Reference Range]: 1 2 3 Gluc POC Lifscn [70-99 mg/dL] 147 mg/dL 2 *HI* (03/05/2012 09:52:00) 2Interpretive Data: Upper Reportable Limit: 200 mg/dL. URINALYSIS Most recent to oldest [Reference Range]: 1 2 3 UA Turbidity [Clear] Clear (03/01/2012 13:00:00) UA Color Haley *NA* (03/01/2012 13:00:00) UA pH [5.0-8.0] 7.0 (03/01/2012 13:00:00) UA Spec Grav [<=1.030] 1.016 (03/01/2012 13:00:00) UA Glucose [Negative mg/dL] Negative mg/dL *NA* (03/01/2012 13:00:00) UA Blood [Negative] Negative (03/01/2012 13:00:00) UA Ketones [Negative mg/dL] Trace mg/dL *ABN* (03/01/2012 13:00:00) UA Protein [Negative mg/dL] Negative mg/dL (03/01/2012 13:00:00) UA Urobilinogen [0.1-1.0 mg/dL] <=1.0 mg/dL *NA* (03/01/2012 13:00:00) UA Bili [Negative] Negative *NA* (03/01/2012 13:00:00) UA Leuk Est [Negative] Small *ABN* (03/01/2012 13:00:00) UA Nitrite [Negative] Negative (03/01/2012 13:00:00) UA WBC [0-5 /HPF] 1 /HPF (03/01/2012 13:00:00) UA RBC [0-2 /HPF] <1 /HPF (03/01/2012 13:00:00) UA Sq Epi [Few /LPF] Few /LPF *NA* (03/01/2012 13:00:00) BLOOD BANK RESULTS Most recent to oldest [Reference Range]: 1 2 3 ABO/Rh AB POS *Unknown* (03/01/2012 13:00:00) Antibody Scrn Negative (03/01/2012 13:00:00) CHEMISTRY Most recent to oldest [Reference Range]: 1 2 3 Sodium Lvl [135-145 mEq/L] 145 mEq/L (03/09/2012 04:38:00) 145 mEq/L (03/08/2012 06:28:00) 143 mEq/L (03/07/2012 11:01:00) Potassium Lvl [3.5-5.1 mEq/L] 3.9 mEq/L (03/09/2012 04:38:00) 4.2 mEq/L (03/08/2012 06:28:00) 4.3 mEq/L (03/07/2012 11:01:00) Chloride Lvl [95-109 mEq/L] 106 mEq/L (03/09/2012 04:38:00) 109 mEq/L (03/08/2012 06:28:00) 110 mEq/L *HI* (03/07/2012 11:01:00) CO2 [24-32 mEq/L] 27 mEq/L (03/09/2012 04:38:00) 28 mEq/L (03/08/2012 06:28:00) 27 mEq/L (03/07/2012 11:01:00) AGAP [10.0-20.0 mEq/L] 15.9 mEq/L (03/09/2012 04:38:00) 12.2 mEq/L (03/08/2012 06:28:00) 10.3 mEq/L (03/07/2012 11:01:00) Creatinine Lvl [0.5-1.4 mg/dL] 0.7 mg/dL (03/09/2012 04:38:00) 0.7 mg/dL (03/08/2012 06:28:00) 0.8 mg/dL (03/07/2012 11:01:00) eGFR 92 mL/min/1.73m2 3 *NA* (03/09/2012 04:38:00) 92 mL/min/1.73m2 4 *NA* (03/08/2012 06:28:00) 79 mL/min/1.73m2 5 *NA* (03/07/2012 11:01:00) BUN [7-22 mg/dL] 7 mg/dL (03/09/2012 04:38:00) 8 mg/dL (03/08/2012 06:28:00) 9 mg/dL (03/07/2012 11:01:00) B/C Ratio [6-25] 16 (03/06/2012 05:52:00) 26 *HI* (03/01/2012 13:00:00) Glucose Lvl [70-99 mg/dL] 131 mg/dL 6 *HI* (03/09/2012 04:38:00) 136 mg/dL 7 *HI* (03/08/2012 06:28:00) 140 mg/dL 8 *HI* (03/07/2012 11:01:00) Total Protein [6.4-8.4 g/dL] 5.9 g/dL *LOW* (03/06/2012 05:52:00) 7.6 g/dL (03/01/2012 13:00:00) Albumin Lvl [3.5-5.0 g/dL] 2.7 g/dL *LOW* (03/06/2012 05:52:00) 3.8 g/dL (03/01/2012 13:00:00) Globulin [2.0-4.0 g/dL] 3.2 g/dL (03/06/2012 05:52:00) 3.8 g/dL (03/01/2012 13:00:00) A/G Ratio [0.7-1.6] 0.8 (03/06/2012 05:52:00) 1.0 (03/01/2012 13:00:00) Calcium Lvl [8.5-10.5 mg/dL] 8.7 mg/dL (03/09/2012 04:38:00) 8.1 mg/dL *LOW* (03/08/2012 06:28:00) 8.6 mg/dL (03/07/2012 11:01:00) Phosphorus [2.5-4.5 mg/dL] 3.8 mg/dL (03/06/2012 05:52:00) Magnesium Lvl [1.8-2.4 mg/dL] 1.3 mg/dL *LOW* (03/06/2012 05:52:00) ALT [0-65 unit/L] 36 unit/L (03/06/2012 05:52:00) 40 unit/L (03/01/2012 13:00:00) AST [0-37 unit/L] 32 unit/L (03/06/2012 05:52:00) 35 unit/L (03/01/2012 13:00:00) Alk Phos [39-136 unit/L] 34 unit/L *LOW* (03/06/2012 05:52:00) 47 unit/L (03/01/2012 13:00:00) Bili Total [0.2-1.3 mg/dL] 0.5 mg/dL (03/06/2012 05:52:00) 0.4 mg/dL (03/01/2012 13:00:00) 3Result Comment: The eGFR is calculated using [...] from the National Kidney Disease Education Program ( NKDEP) which additionally recommends that when the eGFR is used in patients with extremes of body mass index for purposes of drug dosing, the eGFR should be mul tiplied by the estimated BMI. 4Result Comment: The eGFR is calculated using [...] from the National Kidney Disease Education Program ( NKDEP) which additionally recommends that when the eGFR is used in patients with extremes of body mass index for purposes of drug dosing, the eGFR should be mul tiplied by the estimated BMI. 5Result Comment: The eGFR is calculated using [...] from the National Kidney Disease Education Program ( NKDEP) which additionally recommends that when the eGFR is used in patients with extremes of body mass index for purposes of drug dosing, the eGFR should be mul tiplied by the estimated BMI. 6Interpretive Data: Adult reference range values reflect the clinical guidelines of the [place] [employer]. 7Interpretive Data: Adult reference range values reflect the clinical guidelines of the [place] [employer]. 8Interpretive Data: Adult reference range values reflect the clinical guidelines of the [place] [employer]. HEMATOLOGY Most recent to oldest [Reference Range]: 1 2 3 WBC [3.7-10.4 K/CMM] 10.7 K/CMM *HI* (03/09/2012 04:38:00) 11.9 K/CMM *HI* (03/06/2012 05:52:00) 11.7 K/CMM *HI* (03/05/2012 23:58:00) RBC [4.20-5.40 M/CMM] 3.12 M/CMM *LOW* (03/09/2012 04:38:00) 3.65 M/CMM *LOW* (03/06/2012 05:52:00) 3.85 M/CMM *LOW* (03/05/2012 23:58:00) Hgb [12.0-16.0 g/dL] 9.3 g/dL *LOW* (03/09/2012 04:38:00) 9.2 g/dL *LOW* (03/08/2012 06:28:00) 10.9 g/dL *LOW* (03/06/2012 05:52:00) Hct [36.0-48.0 %] 28.2 % *LOW* (03/09/2012 04:38:00) 28.3 % *LOW* (03/08/2012 06:28:00) 32.8 % *LOW* (03/06/2012 05:52:00) MCV [81.0-99.0 fL] 90.4 fL (03/09/2012 04:38:00) 89.8 fL (03/06/2012 05:52:00) 90.1 fL (03/05/2012 23:58:00) MCH [27.0-31.0 pg] 29.7 pg (03/09/2012 04:38:00) 29.9 pg (03/06/2012 05:52:00) 29.4 pg (03/05/2012 23:58:00) MCHC [32.0-36.0 g/dL] 32.9 g/dL (03/09/2012 04:38:00) 33.4 g/dL (03/06/2012 05:52:00) 32.6 g/dL (03/05/2012 23:58:00) RDW [11.5-14.5 %] 14.1 % (03/09/2012 04:38:00) 14.4 % (03/06/2012 05:52:00) 14.8 % *HI* (03/05/2012 23:58:00) Platelet [133-450 K/CMM] 221 K/CMM (03/09/2012 04:38:00) 209 K/CMM (03/06/2012 05:52:00) 208 K/CMM (03/05/2012 23:58:00) MPV [7.4-10.4 fL] 8.9 fL (03/09/2012 04:38:00) 9.5 fL (03/06/2012 05:52:00) 9.1 fL (03/05/2012 23:58:00) Segs [45.0-75.0 %] 59.4 % (03/09/2012 04:38:00) 75.9 % *HI* (03/06/2012 05:52:00) 87.1 % *HI* (03/05/2012 23:58:00) Lymphocytes [20.0-40.0 %] 25.2 % (03/09/2012 04:38:00) 13.7 % *LOW* (03/06/2012 05:52:00) 6.7 % *LOW* (03/05/2012 23:58:00) Monocytes [2.0-12.0 %] 9.9 % (03/09/2012 04:38:00) 10.2 % (03/06/2012 05:52:00) 6.1 % (03/05/2012 23:58:00) Eosinophils [0.0-4.0 %] 5.2 % *HI* (03/09/2012 04:38:00) 0.0 % (03/06/2012 05:52:00) 0.0 % (03/05/2012 23:58:00) Basophils [0.0-1.0 %] 0.3 % (03/09/2012 04:38:00) 0.2 % (03/06/2012 05:52:00) 0.1 % (03/05/2012 23:58:00) Segs-Bands # [1.5-8.1 K/CMM] 6.3 K/CMM (03/09/2012 04:38:00) 9.0 K/CMM *HI* (03/06/2012 05:52:00) 10.2 K/CMM *HI* (03/05/2012 23:58:00) Lymphocytes # [1.0-5.5 K/CMM] 2.7 K/CMM (03/09/2012 04:38:00) 1.6 K/CMM (03/06/2012 05:52:00) 0.8 K/CMM *LOW* (03/05/2012 23:58:00) Monocytes # [0.0-0.8 K/CMM] 1.1 K/CMM *HI* (03/09/2012 04:38:00) 1.2 K/CMM *HI* (03/06/2012 05:52:00) 0.7 K/CMM (03/05/2012 23:58:00) Eosinophils # [0.0-0.5 K/CMM] 0.6 K/CMM *HI* (03/09/2012 04:38:00) 0.0 K/CMM (03/06/2012 05:52:00) 0.0 K/CMM (03/05/2012 23:58:00) Basophils # [0.0-0.2 K/CMM] 0.0 K/CMM (03/09/2012 04:38:00) 0.0 K/CMM (03/06/2012 05:52:00) 0.0 K/CMM (03/05/2012 23:58:00) PT [12.0-14.7 seconds] 13.4 seconds (03/01/2012 13:00:00) INR [0.85-1.17] 1.00 9 (03/01/2012 13:00:00) PTT [22.9-35.8 seconds] 28.4 seconds 10 (03/01/2012 13:00:00) 9Interpretive Data: RECOMMENDED RANGES FOR PROTIME INR: 2.0-3.0 for most medical and surgical thromboembolic states. 2.5-3.5 for artificial heart valves and recurrent embolism. INR SHOULD BE USED ONLY FOR PATIENTS ON STABLE ANTICOAGULANT THERAPY. 10Interpretive Data: Heparin Therapeutic Range: 57 - 92 Seconds
--- OUTSIDE RECORDS SUMMARY | 2018-10-10 07:54 | XMS REPORT | CCD ---
Author Author Auto Generated Organization [facility] Address Unknown Phone Unavailable Care Team Providers Care Ballistics Teacher Name Role Phone Pasha Albarran CP Allergies, Adverse Reactions, Alerts Substance Reaction Status morphine Active Problem List Condition Effective Dates Status Diabetes mellitus Active Diverticulitis Active Hypercholesterolemia Active Sigmoid colectomy Active Sleep apnea Active Medications Medication Instructions Start Date End Date Status Dilaudid 0.5 mg, Route: IV, ONCE, Dosing 03/12/2012 03/12/2012 Completed Weight 92.273, kg, Start date: 03/12/12 13:09:00, Stop date: 03/12/12 13:09:00 Saline Flush 0.9% 5 mL, Route: IVP, Drug Form: INJ, 03/12/2012 03/12/2012 Discontinued Dosing Weight 92.273, kg, PRN, PRN Line Flush, Start date: 03/12/12 12:50:00, Duration: 24 hr, Stop date: 03/13/12 12:49:00 oxybutynin 15 mg 15 mg, 1 tab, PO, Daily, 30 tab, 03/12/2012 Ordered oral tablet, Substitution Allowed, ERTAB extended release Ultram 50 mg oral 50 mg, 1 tab, PO, Q4H, PRN, 20 tab, 03/12/2012 Ordered tablet pain, Substitution Allowed Vital Signs Most recent to oldest [Reference Range]: 1 Height 160.02 cm (03/12/2012 12:26:00) Weight 92.273 kg (03/12/2012 12:26:00) Results URINALYSIS Most recent to oldest [Reference Range]: 1 UA Turbidity [Clear] Slight *ABN* (03/12/2012 12:33:00) UA Color [Yellow] Yellow (03/12/2012 12:33:00) UA pH [5.0-8.0] 5.5 (03/12/2012 12:33:00) UA Spec Grav [<=1.030] 1.020 (03/12/2012 12:33:00) UA Glucose [Negative] Negative (03/12/2012 12:33:00) UA Blood [Negative] Negative (03/12/2012 12:33:00) UA Ketones [Negative] Negative (03/12/2012 12:33:00) UA Protein [Negative] Negative (03/12/2012 12:33:00) UA Urobilinogen [0.1-1.0] Negative (03/12/2012 12:33:00) UA Bili [Negative] Negative (03/12/2012 12:33:00) UA Leuk Est [Negative] Negative (03/12/2012 12:33:00) UA Nitrite [Negative] Negative (03/12/2012 12:33:00) UA WBC [0-5 /HPF] 9 /HPF *HI* (03/12/2012 12:33:00) UA RBC [0-2 /HPF] 11 /HPF *HI* (03/12/2012 12:33:00) UA Bacteria [None Seen /HPF] Occasional /HPF *NA* (03/12/2012 12:33:00) UA Sq Epi [Few /LPF] Occasional /LPF *NA* (03/12/2012 12:33:00) Micro? Performed (03/12/2012 12:33:00) CHEMISTRY Most recent to oldest [Reference Range]: 1 Sodium Lvl [135-145 mEq/L] 141 mEq/L (03/12/2012 13:10:00) Potassium Lvl [3.5-5.1 mEq/L] 3.7 mEq/L (03/12/2012 13:10:00) Chloride Lvl [95-109 mEq/L] 101 mEq/L (03/12/2012 13:10:00) CO2 [24-32 mEq/L] 29 mEq/L (03/12/2012 13:10:00) AGAP [10.0-20.0 mEq/L] 14.7 mEq/L (03/12/2012 13:10:00) Creatinine Lvl [0.5-1.4 mg/dL] 0.9 mg/dL (03/12/2012 13:10:00) eGFR 68 mL/min/1.73m2 1 *NA* (03/12/2012:10:00) BUN [7-22 mg/dL] 13 mg/dL (03/12/2012:1000) B/C Ratio [6-25] 14 (03/12/2012:10:00) Glucose Lvl [70-99 mg/dL] 160 mg/dL 2 *HI* (03/12/2012:10:00) Total Protein [6.4-8.4 g/dL] 7.4 g/dL (03/12/2012:10:00) Albumin Lvl [3.5-5.0 g/dL] 3.1 g/dL *LOW* (03/12/2012) Globulin [2.0-4.0 g/dL] 4.3 g/dL *HI* (03/12/2012:10:00) A/G Ratio [0.7-1.6] 0.7 (03/12/2012:) Calcium Lvl [8.5-10.5 mg/dL] 9.4 mg/dL (03/12/2012:10:00) ALT [0-65 unit/L] 29 unit/L (03/12/2012::00) AST [0-37 unit/L] 33 unit/L (03/12/2012:10:00) Alk Phos [39-136 unit/L] 50 unit/L (03/12/2012:10:00) Bili Total [0.2-1.3 mg/dL] 0.5 mg/dL (03/12/2012:10:00) Lipase Lvl [73-393 unit/L] 200 unit/L (03/12/2012:10:00) 1Result Comment: The eGFR is calculated using [...] be mul tiplied by the estimated BMI. 2Interpretive Data: Adult reference range values reflect the clinical guidelines of the [place] [employer]. HEMATOLOGY Most recent to oldest [Reference Range]: 1 WBC [3.7-10.4 K/CMM] 11.8 K/CMM *HI* (03/12/2012) RBC [4.20-5.40 M/CMM] 3.76 M/CMM *LOW* (03/12/2012) Hgb [12.0-16.0 g/dL] 11.0 g/dL *LOW* (03/12/2012) Hct [36.0-48.0 %] 33.6 % *LOW* (03/12/2012) MCV [81.0-99.0 fL] 89.3 fL (03/12/2012:) MCH [27.0-31.0 pg] 29.4 pg (03/12/2012) MCHC [32.0-36.0 g/dL] 32.9 g/dL (03/12/2012:) RDW [11.5-14.5 %] 14.2 % (03/12/2012) Platelet [133-450 K/CMM] 366 K/CMM (03/12/2012) MPV [7.4-10.4 fL] 8.6 fL (03/12/201200) Segs [45.0-75.0 %] 62.6 % (03/12/2012) Lymphocytes [20.0-40.0 %] 24.2 % (03/12/2012) Monocytes [2.0-12.0 %] 8.9 % (03/12/2012) Eosinophils [0.0-4.0 %] 4.0 % (03/12/2012 13:10:00) Basophils [0.0-1.0 %] 0.3 % (03/12/2012 13:10:00) Segs-Bands # [1.5-8.1 K/CMM] 7.4 K/CMM (03/12/2012 13:10:00) Lymphocytes # [1.0-5.5 K/CMM] 2.9 K/CMM (03/12/2012 13:10:00) Monocytes # [0.0-0.8 K/CMM] 1.1 K/CMM *HI* (03/12/2012 13:10:00) Eosinophils # [0.0-0.5 K/CMM] 0.5 K/CMM (03/12/2012 13:10:00) Basophils # [0.0-0.2 K/CMM] 0.0 K/CMM (03/12/2012 13:10:00) RBC Morph Normal (03/12/2012 13:10:00) Plt Morph Normal (03/12/2012 13:10:00) Microbiology Reports PROCEDURE:Culture: Urine STATUS: In Progress BODY SITE: COLLECTED DATE/TIME: 03/12/2012 12:33:00 SOURCE: Urine, Clean Catch FREE TEXT SOURCE: PRELIMINARY REPORTS Preliminary Report No Growth; Holding
--- OUTSIDE RECORDS SUMMARY | 2018-10-10 07:54 | XMS REPORT | CCD ---
Author Author Auto Generated Organization [facility] Address Unknown Phone Unavailable Care Team Providers Care Service Establishment Attendant Name Role Phone Nba Zapata CP Allergies, Adverse Reactions, Alerts Substance Reaction Status morphine Active Problem List Condition Effective Dates Status Diabetes mellitus Active Diverticulitis Active Hypercholesterolemia Active Sigmoid colectomy Active Sleep apnea Active Medications Medication Instructions Start Date End Date Status ondansetron 4 mg, 2 mL, Route: IVP, Drug form: 03/22/2012 03/22/2012 Completed INJ, ONCE, Dosing Weight 92.273, kg, Priority: STAT, Start date: 03/22/12 18:03:00, Stop date: 03/22/12 18:03:00 Saline Flush 0.9% 5 mL, Route: IVP, Drug Form: INJ, 03/22/2012 03/23/2012 Completed Dosing Weight 92.273, kg, PRN, PRN Line Flush, Start date: 03/22/12 18:03:00, Duration: 24 hr, Stop date: 03/23/12 18:02:00 insulin aspart 4 unit, 0.04 mL, Route: SUB-Q, Drug 03/23/2012 03/27/2012 Discontinued form: SOLN, TID-Before Meals, Dosing Weight 92.273, kg, PRN Blood Glucose Results, Start date: 03/23/12 0:21:00, Duration: 30 day, Stop date: 04/22/12 0:20:00 insulin aspart 3 unit, 0.03 mL, Route: SUB-Q, Drug 03/23/2012 03/27/2012 Discontinued form: SOLN, TID-Before Meals, Dosing Weight 92.273, kg, PRN Blood Glucose Results, Start date: 03/23/12 0:21:00, Duration: 30 day, Stop date: 04/22/12 0:20:00 insulin aspart 2 unit, 0.02 mL, Route: SUB-Q, Drug 03/23/2012 03/27/2012 Discontinued form: SOLN, TID-Before Meals, Dosing Weight 92.273, kg, PRN Blood Glucose Results, Start date: 03/23/12 0:21:00, Duration: 30 day, Stop date: 04/22/12 0:20:00 insulin aspart 1 unit, 0.01 mL, Route: SUB-Q, Drug 03/23/2012 03/27/2012 Discontinued form: SOLN, TID-Before Meals, Dosing Weight 92.273, kg, PRN Blood Glucose Results, Start date: 03/23/12 0:21:00, Duration: 30 day, Stop date: 04/22/12 0:20:00 insulin aspart 5 unit, 0.05 mL, Route: SUB-Q, Drug 03/23/2012 03/27/2012 Discontinued form: SOLN, TID-Before Meals, Dosing Weight 92.273, kg, PRN Blood Glucose Results, Start date: 03/23/12 0:21:00, Duration: 30 day, Stop date: 04/22/12 0:20:00 Dextrose 50% Syringe 12.5 gm, 25 mL, Route: IVP, Drug 03/23/2012 03/27/2012 Discontinued Form: INJ, Dosing Weight 92.273, kg, PRN, PRN Blood Glucose Results, Start date: 03/23/12 0:21:00, Duration: 30 day, Stop date: 04/22/12 0:20:00 Dextrose 50% Syringe 25 gm, 50 mL, Route: IVP Central, 03/23/2012 03/27/2012 Discontinued Drug Form: INJ, Dosing Weight 92.273, kg, PRN, PRN Blood Glucose Results, Start date: 03/23/12 0:21:00, Duration: 30 day, Stop date: 04/22/12 0:20:00 glucagon 1 mg, Route: IM, Drug form: 03/23/2012 03/27/2012 Discontinued PDR/INJ, PRN, Dosing Weight 92.273, kg, PRN Blood Glucose Results, Start date: 03/23/12 0:21:00, Duration: 30 day, Stop date: 04/22/12 0:20:00 Cipro 500 mg, 1 tab, Route: PO, Drug 03/27/2012 03/27/2012 Discontinued form: TAB, [id number], Dosing Weight 92.273, kg, Start date: 03/27/12 16:00:00, Duration: 30 day, Stop date: 04/26/12 4:00:00 ondansetron 4 mg, 2 mL, Route: IVP, Drug form: 03/22/2012 03/27/2012 Discontinued INJ, Q6H, Dosing Weight 92.273, kg, PRN Nausea & Vomiting, Start date: 03/22/12 22:22:00, Duration: 30 day, Stop date: 04/21/12 22:21:00 acetaminophen-hydroc 2 tab, Route: PO, Drug Form: TAB, 03/22/2012 03/27/2012 Discontinued odone 325 mg-5 mg Dosing Weight 92.273, kg, Q4H, PRN oral tablet Pain Score 4-6, Start date: 03/22/12 22:22:00, Duration: 30 day, Stop date: 04/21/12 22:21:00 Saline Flush 0.9% 5 ml, Route: IVP, Drug Form: INJ, 03/22/2012 03/27/2012 Discontinued Dosing Weight 92.273, kg, PRN, PRN Line Flush, Start date: 03/22/12 22:22:00, Duration: 30 day, Stop date: 04/21/12 22:21:00 Sodium Chloride 0.9% 1,000 mL, Rate: 125 ml/hr, Infuse 03/22/2012 03/25/2012 Discontinued IV 1,000 mL over: 8 hr, Route: IV, kg, Total Volume: 1,000, Start date: 03/22/12 22:22:00, Duration: 30 day, Stop date: 04/21/12 22:21:00 acetaminophen-hydroc 1 tab, Route: PO, Drug Form: TAB, 03/22/2012 03/27/2012 Discontinued odone 325 mg-5 mg Dosing Weight 92.273, kg, Q4H, PRN oral tablet Pain Score 1-3, Start date: 03/22/12 22:22:00, Duration: 30 day, Stop date: 04/21/12 22:21:00 acetaminophen 650 mg, 2 tab, Route: PO, Drug 03/22/2012 03/27/2012 Discontinued form: TAB, Q4H, Dosing Weight 92.273, kg, PRN Pain/Fever, Start date: 03/22/12 22:22:00, Duration: 30 day, Stop date: 04/21/12 22:21:00 tobramycin + Sodium 300 mg, 7.5 mL, Route: IV, Drug 03/22/2012 03/23/2012 Completed Chloride 0.9% IV 100 form: INJ, ONCE, Dosing Weight mL 92.273, kg, Priority: STAT, Start date: 03/22/12 22:12:00, Stop date: 03/22/12 22:12:00 cefepime + Sodium 1 gm, Route: IVPB, [id number], Dosing 03/22/2012 03/27/2012 Discontinued Chloride 0.9% IV 100 Weight 92.273, kg, (CrCl 30 - 49 mL ml/min), Priority: STAT, Start date: 03/22/12 22:12:00, Duration: 30 day, Stop date: 04/21/12 10:00:00 enoxaparin 40 mg, 0.4 mL, Route: SUB-Q, Drug 03/22/2012 03/27/2012 Discontinued form: INJ, [id number], Dosing Weight 92.273, kg, Priority: STAT, Start date: 03/22/12 22:20:00, Duration: 30 day, Stop date: 04/20/12 23:00:00 vancomycin 1 gm, 250 mL, Route: IVPB, Drug 03/22/2012 03/22/2012 Completed form: INJ, ONCE, Dosing Weight 92.273, kg, Priority: STAT, Start date: 03/22/12 21:29:00, Stop date: 03/22/12 21:29:00 Rocephin 1 gm, Route: IVPB, ONCE, Dosing 03/22/2012 03/22/2012 Completed Weight 92.273, kg, Priority: STAT, Start date: 03/22/12 21:29:00, Stop date: 03/22/12 21:29:00 Cipro 500 mg oral 500 mg, 1 tab, PO, [id number], 20 tab, 03/27/2012 Ordered tablet Substitution Allowed, TAB metoclopramide 10 mg, 2 mL, Route: IVP, Drug form: 03/22/2012 03/22/2012 Completed INJ, ONCE, Dosing Weight 92.273, kg, Priority: STAT, Start date: 03/22/12 18:03:00, Stop date: 03/22/12 18:03:00 NS 500 mL 500 mL, Rate: 1,000 ml/hr, Infuse 03/22/2012 03/22/2012 Completed over: 0.5 hr, Route: IV, kg, Total Volume: 500, Start date: 03/22/12 20:07:00, Duration: 1 doses or times, Stop date: 03/22/12 20:36:00, Bolus Dose Bolus Dose Cipro 500 mg, 1 tab, Route: PO, Drug 03/27/2012 03/27/2012 Discontinued form: TAB, [id number], Start date: 03/27/12 15:00:00, Duration: 20 doses or times, Stop date: 04/06/12 3:00:00 Pyridium 200 mg, 1 tab, Route: PO, Drug 03/23/2012 03/27/2012 Discontinued form: TAB, BID, Start date: 03/23/12 17:00:00, Duration: 30 day, Stop date: 04/22/12 9:00:00 Vital Signs Most recent to oldest [Reference Range]: 1 2 3 Height 160.02 cm (03/22/2012 17:08:00) Current Weight 92.227 kg (03/27/2012 04:48:00) 95.909 kg (03/26/2012 05:03:00) 96.364 kg (03/25/2012 06:06:00) Temperature Oral [96.4-99.1 DegF] 98 DegF (03/27/2012 16:00:00) 98 DegF (03/27/2012 12:00:00) 97.9 DegF (03/27/2012 07:57:00) Systolic Blood Pressure [90-140 mmHg] 133 mmHg (03/27/2012 16:00:00) 120 mmHg (03/27/2012 12:00:00) 116 mmHg (03/27/2012 07:57:00) Diastolic Blood Pressure [60-90 mmHg] 88 mmHg (03/27/2012 16:00:00) 83 mmHg (03/27/2012 12:00:00) 79 mmHg (03/27/2012 07:57:00) Respiratory Rate [14-20 BRMIN] 20 BRMIN (03/27/2012 16:00:00) 20 BRMIN (03/27/2012 12:00:00) 18 BRMIN (03/27/2012 07:57:00) Peripheral Pulse Rate [60-100 bpm] 118 bpm *HI* (03/27/2012 16:00:00) 91 bpm (03/27/2012 12:00:00) 102 bpm *HI* (03/27/2012 07:57:00) Weight 92.273 kg (03/22/2012 17:08:00) Results BEDSIDE GLUCOSE TESTING Most recent to [facility] [Reference Range]: 1 2 3 Gluc POC Lifscn [70-99 mg/dL] 178 mg/dL 1 *HI* (03/27/2012 16:32:00) 134 mg/dL 2 *HI* (03/27/2012 11:37:00) 139 mg/dL 3 *HI* (03/27/2012 05:50:00) Comment1 Notify RN/MD *NA* (03/27/2012 16:32:00) Notify RN/MD *NA* (03/27/2012 11:37:00) Notify RN/MD *NA* (03/26/2012 14:54:00) 1Interpretive Data: Upper Reportable Limit: 200 mg/dL. 2Interpretive Data: Upper Reportable Limit: 200 mg/dL. 3Interpretive Data: Upper Reportable Limit: 200 mg/dL. URINALYSIS Most recent to oldest [Reference Range]: 1 2 3 UA Turbidity [Clear] Marked *ABN* (03/22/2012 19:05:00) UA Color Ltyellow *NA* (03/22/2012 19:05:00) UA pH [5.0-8.0] 6.0 (03/22/2012 19:05:00) UA Spec Grav [<=1.030] 1.003 (03/22/2012 19:05:00) UA Glucose [Negative mg/dL] Negative mg/dL *NA* (03/22/2012 19:05:00) UA Blood [Negative] Moderate *ABN* (03/22/2012 19:05:00) UA Ketones [Negative mg/dL] Negative mg/dL *NA* (03/22/2012 19:05:00) UA Protein [Negative mg/dL] 30 mg/dL *ABN* (03/22/2012 19:05:00) UA Urobilinogen [0.1-1.0 mg/dL] <=1.0 mg/dL *NA* (03/22/2012 19:05:00) UA Bili [Negative] Negative *NA* (03/22/2012 19:05:00) UA Leuk Est [Negative] Large *ABN* (03/22/2012 19:05:00) UA Nitrite [Negative] Negative (03/22/2012 19:05:00) UA WBC [0-5 /HPF] 155 /HPF *HI* (03/22/2012 19:05:00) UA RBC [0-2 /HPF] 20 /HPF *HI* (03/22/2012 19:05:00) UA Bacteria [None Seen /HPF] Occasional /HPF *NA* (03/22/2012 19:05:00) UA Sq Epi [Few /LPF] Many /LPF *ABN* (03/22/2012 19:05:00) CHEMISTRY Most recent to oldest [Reference Range]: 1 2 3 Sodium Lvl [135-145 mEq/L] 142 mEq/L (03/26/2012 05:36:00) 140 mEq/L (03/23/2012 04:42:00) 135 mEq/L (03/22/2012 18:20:00) Potassium Lvl [3.5-5.1 mEq/L] 4.1 mEq/L (03/26/2012 05:36:00) 3.7 mEq/L (03/23/2012 04:42:00) 3.8 mEq/L (03/22/2012 18:20:00) Chloride Lvl [95-109 mEq/L] 105 mEq/L (03/26/2012 05:36:00) 104 mEq/L (03/23/2012 04:42:00) 100 mEq/L (03/22/2012 18:20:00) CO2 [24-32 mEq/L] 28 mEq/L (03/26/2012 05:36:00) 27 mEq/L (03/23/2012 04:42:00) 25 mEq/L (03/22/2012 18:20:00) AGAP [10.0-20.0 mEq/L] 13.1 mEq/L (03/26/2012 05:36:00) 12.7 mEq/L (03/23/2012 04:42:00) 13.8 mEq/L (03/22/2012 18:20:00) Creatinine Lvl [0.5-1.4 mg/dL] 0.8 mg/dL (03/26/2012 05:36:00) 0.7 mg/dL (03/23/2012 04:42:00) 0.7 mg/dL (03/22/2012 18:20:00) eGFR 79 mL/min/1.73m2 4 *NA* (03/26/2012 05:36:00) 92 mL/min/1.73m2 5 *NA* (03/23/2012 04:42:00) 92 mL/min/1.73m2 6 *NA* (03/22/2012 18:20:00) BUN [7-22 mg/dL] 11 mg/dL (03/26/2012 05:36:00) 8 mg/dL (03/23/2012 04:42:00) 8 mg/dL (03/22/2012 18:20:00) B/C Ratio [6-25] 11 (03/22/2012 18:20:00) Glucose Lvl [70-99 mg/dL] 118 mg/dL 7 *HI* (03/26/2012 05:36:00) 130 mg/dL 8 *HI* (03/23/2012 04:42:00) 173 mg/dL 9 *HI* (03/22/2012 18:20:00) Total Protein [6.4-8.4 g/dL] 7.6 g/dL (03/22/2012 18:20:00) Albumin Lvl [3.5-5.0 g/dL] 2.9 g/dL *LOW* (03/22/2012 18:20:00) Globulin [2.0-4.0 g/dL] 4.7 g/dL *HI* (03/22/2012 18:20:00) A/G Ratio [0.7-1.6] 0.6 *LOW* (03/22/2012 18:20:00) Calcium Lvl [8.5-10.5 mg/dL] 9.3 mg/dL (03/26/2012 05:36:00) 8.6 mg/dL (03/23/2012 04:42:00) 9.1 mg/dL (03/22/2012 18:20:00) ALT [0-65 unit/L] 16 unit/L (03/22/2012 18:20:00) AST [0-37 unit/L] 17 unit/L (03/22/2012 18:20:00) Alk Phos [39-136 unit/L] 40 unit/L (03/22/2012 18:20:00) Bili Total [0.2-1.3 mg/dL] 0.6 mg/dL (03/22/2012 18:20:00) Lipase Lvl [73-393 unit/L] 84 unit/L (03/22/2012 18:20:00) Lactic Acid Lvl [0.5-2.2 mMol/L] 1.0 mMol/L (03/22/2012 18:20:00) CHD Risk [3.90-5.80] 2.86 *LOW* (03/23/2012 04:42:00) Chol [120-200 mg/dL] 100 mg/dL *LOW* (03/23/2012 04:42:00) Trig [0-200 mg/dL] 141 mg/dL (03/23/2012 04:42:00) HDL [>=35 mg/dL] 35 mg/dL (03/23/2012 04:42:00) LDL [0-129 mg/dL] 37 mg/dL (03/23/2012 04:42:00) Hgb A1C 7.6 % 10 *NA* (03/23/2012 04:42:00) TSH [0.360-3.740 uIU/mL] 0.832 uIU/mL (03/23/2012 04:42:00) 4Result Comment: The eGFR is calculated using [...] be mul tiplied by the estimated BMI. 6Result Comment: The eGFR is calculated using [...] be mul tiplied by the estimated BMI. 7Interpretive Data: Adult reference range values reflect the clinical guidelines of the [place] [employer]. 8Interpretive Data: Adult reference range values reflect the clinical guidelines of the [place] [employer]. 9Interpretive Data: Adult reference range values reflect the clinical guidelines of the [place] [employer]. 10Interpretive Data: HbA1C% eAG(mg/dL) Interpretation 6.0 126 Very good control 6.5 140 Very good control 7.0 154 Good Control 7.5 169 Good Control 8.0 183 Marginal Control, take action to lower 8.5 197 Marginal Control, take action to lower 9.0 212 Poor Control, take action to lower 9.5 226 Poor Control, take action to lower 10.0 240 Poor Control, take action to lower HEMATOLOGY Most recent to oldest [Reference Range]: 1 2 3 WBC [3.7-10.4 K/CMM] 6.1 K/CMM (03/26/2012 05:36:00) 14.3 K/CMM *HI* (03/23/2012 04:42:00) 19.0 K/CMM *HI* (03/22/2012 18:20:00) RBC [4.20-5.40 M/CMM] 3.22 M/CMM *LOW* (03/26/2012 05:36:00) 3.14 M/CMM *LOW* (03/23/2012 04:42:00) 3.49 M/CMM *LOW* (03/22/2012 18:20:00) Hgb [12.0-16.0 g/dL] 9.2 g/dL *LOW* (03/26/2012 05:36:00) 8.9 g/dL *LOW* (03/23/2012 04:42:00) 9.9 g/dL *LOW* (03/22/2012 18:20:00) Hct [36.0-48.0 %] 28.5 % *LOW* (03/26/2012 05:36:00) 27.9 % *LOW* (03/23/2012 04:42:00) 30.6 % *LOW* (03/22/2012 18:20:00) MCV [81.0-99.0 fL] 88.6 fL (03/26/2012 05:36:00) 89.0 fL (03/23/2012 04:42:00) 87.7 fL (03/22/2012 18:20:00) MCH [27.0-31.0 pg] 28.5 pg (03/26/2012 05:36:00) 28.5 pg (03/23/2012 04:42:00) 28.5 pg (03/22/2012 18:20:00) MCHC [32.0-36.0 g/dL] 32.1 g/dL (03/26/2012 05:36:00) 32.0 g/dL (03/23/2012 04:42:00) 32.4 g/dL (03/22/2012 18:20:00) RDW [11.5-14.5 %] 14.9 % *HI* (03/26/2012 05:36:00) 14.4 % (03/23/2012 04:42:00) 14.8 % *HI* (03/22/2012 18:20:00) Platelet [133-450 K/CMM] 345 K/CMM (03/26/2012 05:36:00) 322 K/CMM (03/23/2012 04:42:00) 397 K/CMM (03/22/2012 18:20:00) MPV [7.4-10.4 fL] 8.8 fL (03/26/2012 05:36:00) 8.7 fL (03/23/2012 04:42:00) 8.4 fL (03/22/2012 18:20:00) Segs [45.0-75.0 %] 50.2 % (03/26/2012 05:36:00) 68.7 % (03/23/2012 04:42:00) 74.6 % (03/22/2012 18:20:00) Lymphocytes [20.0-40.0 %] 29.8 % (03/26/2012 05:36:00) 15.8 % *LOW* (03/23/2012 04:42:00) 12.4 % *LOW* (03/22/2012 18:20:00) Monocytes [2.0-12.0 %] 12.3 % *HI* (03/26/2012 05:36:00) 15.1 % *HI* (03/23/2012 04:42:00) 12.8 % *HI* (03/22/2012 18:20:00) Eosinophils [0.0-4.0 %] 7.0 % *HI* (03/26/2012 05:36:00) 0.2 % (03/23/2012 04:42:00) 0.1 % (03/22/2012 18:20:00) Basophils [0.0-1.0 %] 0.7 % (03/26/2012 05:36:00) 0.2 % (03/23/2012 04:42:00) 0.1 % (03/22/2012 18:20:00) Segs-Bands # [1.5-8.1 K/CMM] 3.1 K/CMM (03/26/2012 05:36:00) 9.8 K/CMM *HI* (03/23/2012 04:42:00) 14.2 K/CMM *HI* (03/22/2012 18:20:00) Lymphocytes # [1.0-5.5 K/CMM] 1.8 K/CMM (03/26/2012 05:36:00) 2.3 K/CMM (03/23/2012 04:42:00) 2.4 K/CMM (03/22/2012 18:20:00) Monocytes # [0.0-0.8 K/CMM] 0.8 K/CMM (03/26/2012 05:36:00) 2.2 K/CMM *HI* (03/23/2012 04:42:00) 2.4 K/CMM *HI* (03/22/2012 18:20:00) Eosinophils # [0.0-0.5 K/CMM] 0.4 K/CMM (03/26/2012 05:36:00) 0.0 K/CMM (03/23/2012 04:42:00) 0.0 K/CMM (03/22/2012 18:20:00) Basophils # [0.0-0.2 K/CMM] 0.0 K/CMM (03/26/2012 05:36:00) 0.0 K/CMM (03/23/2012 04:42:00) 0.0 K/CMM (03/22/2012 18:20:00) IMMUNOLOGY Most recent to oldest [Reference Range]: 1 2 3 CRP, High Sensitivity 96.0 mg/L 11 *NA* (03/23/2012 00:23:00) 11Interpretive Data: Low Risk: <1.0 mg/L Average Risk: 1.0 - 3.0 mg/L High Risk: >3.0 mg/L Inflammation: >10.0 mg/L Microbiology Reports PROCEDURE:Culture: Urine STATUS: Auth (Verified) BODY SITE: COLLECTED DATE/TIME: 03/23/2012 03:05:00 SOURCE: Urine, Clean Catch FREE TEXT SOURCE: FINAL REPORTS Final Report No Growth PRELIMINARY REPORTS Preliminary Report No Growth; Holding PROCEDURE:Culture: Blood STATUS: Auth (Verified) BODY SITE: Hand L COLLECTED DATE/TIME: 03/22/2012 18:20:00 SOURCE: Blood FREE TEXT SOURCE: FINAL REPORTS Final Report No Growth At 5 Days PRELIMINARY REPORTS Preliminary Report No Growth At 4 Days Preliminary Report No Growth At 1 Day Preliminary Report No Growth At 2 Days Preliminary Report No Growth; Holding Preliminary Report No Growth At 3 Days PROCEDURE:Culture: Blood STATUS: Auth (Verified) BODY SITE: Hand R COLLECTED DATE/TIME: 03/22/2012 18:03:00 SOURCE: Blood FREE TEXT SOURCE: FINAL REPORTS Final Report No Growth At 5 Days PRELIMINARY REPORTS Preliminary Report No Growth At 3 Days Preliminary Report No Growth At 4 Days Preliminary Report No Growth At 1 Day Preliminary Report No Growth; Holding Preliminary Report No Growth At 2 Days
--- OUTSIDE RECORDS SUMMARY | 2018-10-10 07:54 | XMS REPORT | CCD ---
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 Name Role Phone Nba Zapata CP Allergies, Adverse Reactions, Alerts Substance Reaction Status morphine Active NKDA Canceled Problem List Condition Effective Dates Status Diabetes mellitus Active Diverticulitis Active Hypercholesterolemia Active Sleep apnea Active Medications Medication Instructions Start Date End Date Status Zosyn 3.375 gm, 100 mL, Route: IVPB, Drug 05/15/2011 05/15/2011 Completed form: PDR/INJ, ONCE, Priority: STAT, Start date: 05/15/11 16:23:00, Stop date: 05/15/11 16:23:00 Flagyl 500 mg, 100 mL, Route: IVPB, Drug 05/15/2011 05/18/2011 Discontinued form: INJ, [id number], Start date: 05/15/11 20:00:00, Duration: 30 day, Stop date: 06/14/11 12:00:00 Rocephin 1 gm, Route: IVPB, [id number], Start 05/15/2011 05/16/2011 Discontinued date: 05/15/11 21:00:00, Duration: 30 day, Stop date: 06/13/11 21:00:00 ondansetron 4 mg, Route: IVP, Drug form: INJ, 05/15/2011 05/15/2011 Completed ONCE, Priority: STAT, Start date: 05/15/11 14:17:00, Stop date: 05/15/11 14:17:00 Sodium Chloride 0.9% 1,000 mL, Rate: 75 ml/hr, Infuse 05/15/2011 05/16/2011 Completed IV 1,000 mL over: 13.3 hr, Route: IV, Total Volume: 1,000, Start date: 05/15/11 18:53:00, Duration: 1 doses or times, Stop date: 05/16/11 8:10:00 Zosyn 3.375 gm, 100 mL, Route: IVPB, Drug 05/15/2011 05/18/2011 Discontinued form: PDR/INJ, ABXQ6H, Priority: STAT, Start date: 05/15/11 19:06:00, Duration: 30 day, Stop date: 06/14/11 13:06:00 Reglan 10 mg, Route: IVP, ONCE, Start 05/15/2011 05/15/2011 Completed date: 05/15/11 14:52:00, Stop date: 05/15/11 14:52:00 ondansetron 4 mg, Route: IVP, ONCE, Priority: 05/15/2011 05/15/2011 Completed STAT, Start date: 05/15/11 13:08:00, Stop date: 05/15/11 13:08:00 hydromorphone 1 mg, Route: IVP, ONCE, Priority: 05/15/2011 05/15/2011 Completed STAT, Start date: 05/15/11 13:08:00, Stop date: 05/15/11 13:08:00 Saline Flush 0.9% 5 ml, Route: IVP, Drug Form: INJ, 05/15/2011 05/16/2011 Completed PRN, PRN Line Flush, Start date: 05/15/11 13:08:00, Duration: 24 hr, Stop date: 05/16/11 13:07:00 Lovenox 40 mg, 0.4 mL, Route: SUB-Q, Drug 05/15/2011 05/18/2011 Discontinued form: INJ, [id number], Start date: 05/15/11 21:00:00, Duration: 30 day, Stop date: 06/13/11 21:00:00 Sodium Chloride 0.9% 1,000 mL, Rate: 1,000 ml/hr, Infuse 05/15/2011 05/15/2011 Completed (Bolus) IV 1000 mL over: 1 hr, Route: IV, Total Volume: 1,000, Bolus Dose, Priority: STAT, Start date: 05/15/11 16:44:00, Duration: 1 doses or times, Stop date: 05/15/11 17:43:00 glimepiride 4 mg 4 mg, 1 tab, PO, Daily, 05/15/2011 Ordered oral tablet Substitution Allowed Saline Flush 0.9% 5 ml, Route: IVP, Drug Form: INJ, 05/15/2011 05/18/2011 Discontinued PRN, PRN Line Flush, Start date: 05/15/11 19:06:00, Duration: 30 day, Stop date: 06/14/11 19:05:00 Sodium Chloride 0.9% 1,000 mL, Rate: 125 ml/hr, Infuse 05/15/2011 05/16/2011 Discontinued IV 1,000 mL over: 8 hr, Route: IV, Total Volume: 1,000, Start date: 05/15/11 19:06:00, Duration: 30 day, Stop date: 06/14/11 19:05:00 morphine Sulfate 2 mg, 1 mL, Route: IVP, Drug form: 05/15/2011 05/18/2011 Discontinued INJ, Q3H, PRN Pain Score 4-6, Start date: 05/15/11 19:06:00, Duration: 30 day, Stop date: 06/14/11 19:05:00 acetaminophen 650 mg, 2 tab, Route: PO, Drug 05/15/2011 05/18/2011 Discontinued form: TAB, Q4H, PRN Pain/Fever, Start date: 05/15/11 19:06:00, Duration: 30 day, Stop date: 06/14/11 19:05:00 ondansetron 4 mg, 2 mL, Route: IVP, Drug form: 05/15/2011 05/18/2011 Discontinued INJ, Q6H, PRN Nausea & Vomiting, Start date: 05/15/11 19:06:00, Duration: 30 day, Stop date: 06/14/11 19:05:00 Dextrose 50% in 50 mL, Route: IVP, PRN, Blood 05/15/2011 05/18/2011 Discontinued Water IV Glucose Results, Start date: 05/15/11 18:55:00, Duration: 30 day, Stop date: 06/14/11 18:54:00 NovoLog FlexPen 6 unit, 0.06 mL, Route: SUB-Q, Drug 05/15/2011 05/18/2011 Discontinued form: SOLN, Sliding Scale, PRN Blood Glucose Results, Start date: 05/15/11 18:55:00, Duration: 30 day, Stop date: 06/14/11 18:54:00 glucagon 1 mg, Route: IM, Drug form: 05/15/2011 05/18/2011 Discontinued PDR/INJ, PRN, PRN Blood Glucose Results, Start date: 05/15/11 18:55:00, Duration: 30 day, Stop date: 06/14/11 18:54:00 NovoLog FlexPen 5 unit, 0.05 mL, Route: SUB-Q, Drug 05/15/2011 05/18/2011 Discontinued form: SOLN, Sliding Scale, PRN Blood Glucose Results, Start date: 05/15/11 18:55:00, Duration: 30 day, Stop date: 06/14/11 18:54:00 NovoLog FlexPen 3 unit, 0.03 mL, Route: SUB-Q, Drug 05/15/2011 05/18/2011 Discontinued form: SOLN, Sliding Scale, PRN Blood Glucose Results, Start date: 05/15/11 18:54:00, Duration: 30 day, Stop date: 06/14/11 18:53:00 NovoLog FlexPen 4 unit, 0.04 mL, Route: SUB-Q, Drug 05/15/2011 05/18/2011 Discontinued form: SOLN, Sliding Scale, PRN Blood Glucose Results, Start date: 05/15/11 18:55:00, Duration: 30 day, Stop date: 06/14/11 18:54:00 NovoLog FlexPen 2 unit, 0.02 mL, Route: SUB-Q, Drug 05/15/2011 05/18/2011 Discontinued form: SOLN, Sliding Scale, PRN Blood Glucose Results, Start date: 05/15/11 18:54:00, Duration: 30 day, Stop date: 06/14/11 18:53:00 NovoLog FlexPen 1 unit, 0.01 mL, Route: SUB-Q, Drug 05/15/2011 05/18/2011 Discontinued form: SOLN, Sliding Scale, PRN Blood Glucose Results, Start date: 05/15/11 18:54:00, Duration: 30 day, Stop date: 06/14/11 18:53:00 metFORmin 1000 mg 1,000 mg, 1 tab, PO, BID, 05/15/2011 Ordered oral tablet Substitution Allowed simvastatin 20 mg, PO, Bedtime, Substitution 05/15/2011 Ordered Allowed Bystolic 2.5 mg oral 2.5 mg, 1 tab, PO, Daily, 05/15/2011 Ordered tablet Substitution Allowed aspirin 81 mg 81 mg, 1 tab, PO, Daily, 05/15/2011 Ordered tablet, chewable Substitution Allowed Vital Signs Most recent to oldest [Reference Range]: 1 2 3 Height 160.02 cm (05/15/2011 10:56:00) Current Weight 92.472 kg (05/15/2011 20:00:00) 92.472 kg (05/15/2011 20:00:00) Temperature Oral [96.4-99.1 DegF] 97.6 DegF (05/18/2011 15:00:00) 98.4 DegF (05/18/2011 11:00:00) 98.5 DegF (05/18/2011 08:00:00) Systolic Blood Pressure [90-140 mmHg] 143 mmHg *HI* (05/18/2011 15:00:00) 115 mmHg (05/18/2011 11:00:00) 127 mmHg (05/18/2011 08:00:00) Diastolic Blood Pressure [60-90 mmHg] 87 mmHg (05/18/2011 15:00:00) 77 mmHg (05/18/2011 11:00:00) 81 mmHg (05/18/2011 08:00:00) Respiratory Rate [14-20 BRMIN] 18 BRMIN (05/18/2011 15:00:00) 18 BRMIN (05/18/2011 11:00:00) 20 BRMIN (05/18/2011 08:00:00) Peripheral Pulse Rate [60-100 bpm] 71 bpm (05/18/2011 15:00:00) 66 bpm (05/18/2011 11:00:00) 80 bpm (05/18/2011 08:00:00) Weight 91.364 kg (05/15/2011 10:56:00) Results BEDSIDE GLUCOSE TESTING Most recent to oldest [Reference Range]: 1 2 3 Gluc POC Lifscn [65-110 mg/dL] 151 mg/dL 1 *HI* (05/18/2011 15:46:00) 189 mg/dL 2 *HI* (05/18/2011 12:01:00) 136 mg/dL 3 *HI* (05/18/2011 06:28:00) Comment1 Notify RN/MD *NA* (05/18/2011 06:28:00) Notify RN/MD *NA* (05/17/2011 21:28:00) Notify RN/MD *NA* (05/17/2011 15:24:00) Comment2 Notify RN/MD *NA* (05/16/2011 15:12:00) Notify RN/MD *NA* (05/16/2011 11:13:00) 1Interpretive Data: Upper Reportable Limit: 200 mg/dL. 2Interpretive Data: Upper Reportable Limit: 200 mg/dL. 3Interpretive Data: Upper Reportable Limit: 200 mg/dL. URINALYSIS Most recent to oldest [Reference Range]: 1 2 3 UA Turbidity [Clear] Clear (05/15/2011 14:20:00) UA Color [Yellow] Hayes *ABN* (05/15/2011 14:20:00) UA pH [5.0-8.0] 5.0 (05/15/2011 14:20:00) UA Spec Grav [<=1.030] 1.025 (05/15/2011 14:20:00) UA Glucose [Negative] Negative (05/15/2011 14:20:00) UA Blood [Negative] Negative (05/15/2011 14:20:00) UA Ketones [Negative] Trace *ABN* (05/15/2011 14:20:00) UA Protein [Negative] Negative (05/15/2011 14:20:00) UA Urobilinogen [0.1-1.0 EU/dL] 0.2 EU/dL (05/15/2011 14:20:00) UA Bili [Negative] Negative *NA* (05/15/2011 14:20:00) UA Leuk Est [Negative] Negative (05/15/2011 14:20:00) UA Nitrite [Negative] Negative (05/15/2011 14:20:00) UA WBC [None Seen] None Seen (05/15/2011 14:20:00) UA RBC [0-2] None Seen (05/15/2011 14:20:00) UA Bacteria [None Seen] None Seen (05/15/2011 14:20:00) UA Sq Epi [Few /LPF] Few /LPF (05/15/2011 14:20:00) UA Mucus [None Seen /LPF] Few /LPF (05/15/2011 14:20:00) Micro? Performed (05/15/2011 14:20:00) STOOL TESTS Most recent to oldest [Reference Range]: 1 2 3 Occult Bld Stl [Negative] Negative (05/17/2011 20:30:00) CHEMISTRY Most recent to oldest [Reference Range]: 1 2 3 Sodium Lvl [135-145 mEq/L] 143 mEq/L (05/18/2011 03:00:00) 143 mEq/L (05/16/2011 04:19:00) 137 mEq/L (05/15/2011 12:59:00) Potassium Lvl [3.5-5.1 mEq/L] 3.8 mEq/L (05/18/2011 03:00:00) 4.2 mEq/L (05/16/2011 04:19:00) 4.4 mEq/L (05/15/2011 12:59:00) Chloride Lvl [95-109 mEq/L] 106 mEq/L (05/18/2011 03:00:00) 106 mEq/L (05/16/2011 04:19:00) 103 mEq/L (05/15/2011 12:59:00) CO2 [24-32 mEq/L] 28 mEq/L (05/18/2011 03:00:00) 29 mEq/L (05/16/2011 04:19:00) 24 mEq/L (05/15/2011 12:59:00) AGAP [10.0-20.0 mEq/L] 12.8 mEq/L (05/18/2011 03:00:00) 12.2 mEq/L (05/16/2011 04:19:00) 14.4 mEq/L (05/15/2011 12:59:00) Creatinine Lvl [0.5-1.4 mg/dL] 0.8 mg/dL (05/18/2011 03:00:00) 0.8 mg/dL (05/16/2011 04:19:00) 0.6 mg/dL (05/15/2011 12:59:00) BUN [7-22 mg/dL] 7 mg/dL (05/18/2011 03:00:00) 13 mg/dL (05/16/2011 04:19:00) 12 mg/dL (05/15/2011 12:59:00) B/C Ratio [6-25] 16 (05/16/2011 04:19:00) 20 (05/15/2011 12:59:00) Glucose Lvl 131 mg/dL 4 *NA* (05/18/2011 03:00:00) 101 mg/dL 5 *NA* (05/16/2011 04:19:00) 104 mg/dL 6 *NA* (05/15/2011 12:59:00) Total Protein [6.4-8.4 g/dL] 6.4 g/dL (05/16/2011 04:19:00) 8.4 g/dL (05/15/2011 12:59:00) Albumin Lvl [3.5-5.0 g/dL] 3.0 g/dL *LOW* (05/16/2011 04:19:00) 3.8 g/dL (05/15/2011 12:59:00) Globulin [2.0-4.0 g/dL] 3.4 g/dL (05/16/2011 04:19:00) 4.6 g/dL *HI* (05/15/2011 12:59:00) A/G Ratio [0.7-1.6] 0.9 (05/16/2011 04:19:00) 0.8 (05/15/2011 12:59:00) Calcium Lvl [8.5-10.5 mg/dL] 8.9 mg/dL (05/18/2011 03:00:00) 8.2 mg/dL *LOW* (05/16/2011 04:19:00) 9.6 mg/dL (05/15/2011 12:59:00) ALT [0-65 U/L] 42 U/L (05/16/2011 04:19:00) 49 U/L (05/15/2011 12:59:00) AST [0-37 U/L] 22 U/L (05/16/2011 04:19:00) 22 U/L (05/15/2011 12:59:00) Alk Phos [39-136 U/L] 32 U/L *LOW* (05/16/2011 04:19:00) 43 U/L (05/15/2011 12:59:00) Bili Total [0.2-1.3 mg/dL] 0.3 mg/dL (05/16/2011 04:19:00) 0.6 mg/dL (05/15/2011 12:59:00) Lipase Lvl [73-393 U/L] 153 U/L (05/15/2011 12:59:00) Iron [30-160 ug/dl] 36 ug/dl (05/16/2011 04:19:00) % Satur Fe [12-57 %] 11 % *LOW* (05/16/2011 04:19:00) UIBC [110-370 ug/dl] 289 ug/dl (05/16/2011 04:19:00) Vitamin B12 Lvl [254-1320 pg/mL] 328 pg/mL (05/16/2011 04:19:00) TIBC [228-428 ug/dl] 325 ug/dl (05/16/2011 04:19:00) 4Interpretive Data: Reference Ranges : 0 - 7 days : 41 - 90 mg/dL7 days - 150 yrs : 70 - 99 mg/dL (fasting), based on the clinical recommendations of the [place] [employer]. 5Interpretive Data: Reference Ranges : 0 - 7 days : 41 - 90 mg/dL7 days - 150 yrs : 70 - 99 mg/dL (fasting), based on the clinical recommendations of the [place] [employer]. 6Interpretive Data: Reference Ranges : 0 - 7 days : 41 - 90 mg/dL7 days - 150 yrs : 70 - 99 mg/dL (fasting), based on the clinical recommendations of the [place] [employer]. HEMATOLOGY Most recent to oldest [Reference Range]: 1 2 3 WBC [3.7-10.4 K/CMM] 7.6 K/CMM (05/18/2011 03:00:00) 10.4 K/CMM (05/16/2011 04:19:00) 15.3 K/CMM *HI* (05/15/2011 14:12:00) RBC [4.20-5.40 M/CMM] 3.79 M/CMM *LOW* (05/18/2011 03:00:00) 3.85 M/CMM *LOW* (05/16/2011 04:19:00) 4.63 M/CMM (05/15/2011 14:12:00) Hgb [12.0-16.0 g/dL] 11.4 g/dL *LOW* (05/18/2011 03:00:00) 11.5 g/dL *LOW* (05/16/2011 04:19:00) 13.9 g/dL (05/15/2011 14:12:00) Hct [36.0-48.0 %] 33.4 % *LOW* (05/18/2011 03:00:00) 34.2 % *LOW* (05/16/2011 04:19:00) 40.6 % (05/15/2011 14:12:00) MCV [81.0-99.0 fL] 88.0 fL (05/18/2011 03:00:00) 88.7 fL (05/16/2011 04:19:00) 87.8 fL (05/15/2011 14:12:00) MCH [27.0-31.0 pg] 29.9 pg (05/18/2011 03:00:00) 29.9 pg (05/16/2011 04:19:00) 29.9 pg (05/15/2011 14:12:00) MCHC [32.0-36.0 g/dL] 34.0 g/dL (05/18/2011 03:00:00) 33.7 g/dL (05/16/2011 04:19:00) 34.1 g/dL (05/15/2011 14:12:00) RDW [11.5-14.5 %] 14.1 % (05/18/2011 03:00:00) 14.1 % (05/16/2011 04:19:00) 14.3 % (05/15/2011 14:12:00) Platelet [133-450 K/CMM] 235 K/CMM (05/18/2011 03:00:00) 247 K/CMM (05/16/2011 04:19:00) 184 K/CMM (05/15/2011 14:12:00) MPV [7.4-10.4 fL] 9.0 fL (05/18/2011 03:00:00) 8.6 fL (05/16/2011 04:19:00) 9.0 fL (05/15/2011 14:12:00) Segs [45.0-75.0 %] 53.3 % (05/18/2011 03:00:00) 62.9 % (05/16/2011 04:19:00) 52.0 % (05/15/2011 14:12:00) Lymphocytes [20.0-40.0 %] 31.0 % (05/18/2011 03:00:00) 26.6 % (05/16/2011 04:19:00) 36.6 % (05/15/2011 14:12:00) Monocytes [2.0-12.0 %] 10.6 % (05/18/2011 03:00:00) 9.5 % (05/16/2011 04:19:00) 9.3 % (05/15/2011 14:12:00) Eosinophils [0.0-4.0 %] 4.5 % *HI* (05/18/2011 03:00:00) 0.4 % (05/16/2011 04:19:00) 1.5 % (05/15/2011 14:12:00) Basophils [0.0-1.0 %] 0.6 % (05/18/2011 03:00:00) 0.6 % (05/16/2011 04:19:00) 0.6 % (05/15/2011 14:12:00) Segs-Bands # [1.5-8.1 K/CMM] 4.1 K/CMM (05/18/2011 03:00:00) 6.6 K/CMM (05/16/2011 04:19:00) 7.9 K/CMM (05/15/2011 14:12:00) Lymphocytes # [1.0-5.5 K/CMM] 2.4 K/CMM (05/18/2011 03:00:00) 2.8 K/CMM (05/16/2011 04:19:00) 5.6 K/CMM *HI* (05/15/2011 14:12:00) Monocytes # [0.0-0.8 K/CMM] 0.8 K/CMM (05/18/2011 03:00:00) 1.0 K/CMM *HI* (05/16/2011 04:19:00) 1.4 K/CMM *HI* (05/15/2011 14:12:00) Eosinophils # [0.0-0.5 K/CMM] 0.3 K/CMM (05/18/2011 03:00:00) 0.0 K/CMM (05/16/2011 04:19:00) 0.2 K/CMM (05/15/2011 14:12:00) Basophils # [0.0-0.2 K/CMM] 0.0 K/CMM (05/18/2011 03:00:00) 0.1 K/CMM (05/16/2011 04:19:00) 0.1 K/CMM (05/15/2011 14:12:00)
--- OUTSIDE RECORDS SUMMARY | 2018-10-10 07:54 | XMS REPORT | Summary of Care ---
Author Organization Unknown Address Unknown Phone Unavailable Encounter Dates Location Diagnoses Discharge Providers Disposition 06/27/2013 [facility] Outpatient Imaging - Final: Other Home Bismark Nolen [place] Screening 06/27/2013 [id number] [place] [facility] [address] , [facility] Reason for Visit V76.11 - SCREEN MAMMOGRA Problem List Condition Effective Dates Status Health Status Informant Diabetes Active mellitus(Confirmed) Diverticulitis(Confi Active rmed) Hypercholesterolemia Active (Confirmed) Sigmoid Active colectomy(Confirmed) Sleep Active apnea(Confirmed) Allergies, Adverse Reactions, Alerts Status Substance Reaction Severity Active morphine Medications No data available for this section Medications Administered During Your Visit No data available for this section Immunizations No data available for this section
--- OUTSIDE RECORDS SUMMARY | 2018-10-10 07:55 | XMS REPORT | Summary of Care ---
Author Author [facility] Organization [facility] Address Unknown Phone Unavailable Encounter ADIN Davenport(FELICIA) [id number] Date(s): 08/09/18 - 08/09/18 [facility] [address] [place] [address]- [phone] Discharge Disposition: Home or Self Care Attending [...]
--- OUTSIDE RECORDS SUMMARY | 2018-10-10 07:55 | XMS REPORT | Summary of Care ---
Author Author [facility] Organization [facility] Address Unknown Phone Unavailable Encounter HQ Ethel(FELICIA) [id number] Date(s): 02/18/15 - 02/18/15 [facility] [address] [place] [address]- [phone] Discharge Diagnosis: Sciatica Discharge Disposition: Home Attending Physician: Kasi Burch MD Vital Signs Most recent to 1 2 oldest [Reference Range]: Temperature Oral 98.3 DegF [96.4-99.1 DegF] (02/18/15 6:14 PM) Most recent to 1 2 oldest [Reference Range]: Blood Pressure 115/80 mmHg 118/83 mmHg [90-140/60-90 mmHg] (02/18/15 10:00 PM) (02/18/15 6:14 PM) Most recent to 1 2 oldest [Reference Range]: Respiratory Rate 16 BRMIN 18 BRMIN [14-20 BRMIN] (02/18/15 10:00 PM) (02/18/15 6:14 PM) Most recent to 1 2 oldest [Reference Range]: Peripheral Pulse 90 bpm 98 bpm Rate [60-100 bpm] (02/18/15 10:00 PM) (02/18/15 6:14 PM) Most recent to 1 2 oldest [Reference Range]: Weight 93.636 kg (02/18/15 6:14 PM) Problem List Condition Effective Dates Status [...] Substance Reaction Severity Status morphine Active Medications acetaminophen-hydrocodone 325 mg-5 mg oral tablet 1 tab, Route: PO, Dosing Weight 93.636, kg, ONCE, STAT, Start date: 02/18/15 20: 57:00, Stop date: 02/18/15 20:57:00 Start Date: 02/18/15 Stop Date: 02/18/15 Status: Completed ketOROLAC 30 mg, Route: IM, Drug form: INJ, ONCE, Dosing Weight 93.636, kg, Priority: STAT , Start date: 02/18/15 20:56:00, Stop date: 02/18/15 20:56:00 Start Date: 02/18/15 Stop Date: 02/18/15 Status: Completed naproxen 375 mg oral enteric coated delayed-release tablet 375 mg=1 tab, PO, Q12H, # 20 tab, 0 Refill(s) Start Date: 02/18/15 Stop Date: 02/28/15 Status: Ordered Ultram 50 mg oral tablet 50 mg=1 tab, PO, Q6H, PRN pain, X 5 day, # 20 tab, 0 Refill(s) Start Date: 02/18/15 Stop Date: 02/23/15 Status: Ordered Results No data available for this section Immunizations No data available for this section Procedures Procedure Date Related Diagnosis Body Site Cystectomy Oophorectomy of remaining solitary ovary Sigmoid colectomy and colostomy Ureter operation Social History Social History Type Response Alcohol Never, Alcohol use interferes with work or home: No. Drinks more than intended: No. Others hurt by drinking: No. Ready to change: No. Household alcohol concerns: No. Smoking Status Never smoker; Exposure to Tobacco Smoke None; Cigarette Smoking Last 365 Days No; Reg Smoking Cessation Counseling No Assessment and Plan No data available for this section
--- OUTSIDE RECORDS SUMMARY | 2018-10-10 07:55 | XMS REPORT | Summary of Care ---
Author Author [facility] Organization [facility] Address Unknown Phone Unavailable Encounter HQ Ethel(FELICIA) [id number] Date(s): 02/05/18 - 02/05/18 [facility] [address] [place] [address]- Encounter Diagnosis Other cervical disc degeneration at C5-C6 level (Final) - 02/08/18 Other spondylosis, cervical region (Final) - Osteophyte, vertebrae (Final) - Pain in left shoulder (Final) - Pain in right shoulder (Final) - Discharge Disposition: Home or Self Care Attending [...]
--- OUTSIDE RECORDS SUMMARY | 2018-10-10 07:55 | XMS REPORT | Summary of Care ---
Author Author [facility] [place] Organization [facility] [place] Address Unknown Phone Unavailable Encounter HQ Ethel(FELICIA) [id number] Date(s): 01/09/15 - 01/09/15 [facility] [place] [address] [place], [place] [address] [phone] Discharge Disposition: Home Attending Physician: Nakita Stewart MD Vital Signs No data available for [...]
--- OUTSIDE RECORDS SUMMARY | 2018-10-10 07:55 | XMS REPORT | Summary of Care ---
Author Author [facility] Organization [facility] Address Unknown Phone Unavailable Encounter ADIN Davenport(FELICIA) [id number] Date(s): 09/24/18 - 09/24/[address] [facility] [address] [place] [address]- [phone] Discharge Disposition: Home or Self Care Attending Physician: Bismark Nolen MD Referring Physician: Bismark Nolen MD Vital Signs No [...] Substance Reaction Severity Status morphine Active Medications Omnipaque 300 injectable solution 100 mL, Route: IV, Drug Form: SOLN, Dosing Weight 92.273, kg, ONCALL, GFR > 45 mL/min, Start date: 09/24/18 9:00:00 CDT, Duration: 1 doses or times Notes: (Same as:Omnipaque 300).WASTE: F/P - Black; E - Municipal Trash Bin Start Date: 09/24/18 Status: Ordered Results Most recent to 1 oldest [Reference Range]: eGFR 75 mL/min/1.73m2 1 *NA* (09/24/18 8:13 AM) POC Creatinine 0.8 mg/dL [0.5-1.4 mg/dL] (09/24/18 8:13 AM) 1Result Comment: The eGFR is calculated using [...] be mul tiplied by the estimated BMI. Immunizations No data available for this section [...]
--- OUTSIDE RECORDS SUMMARY | 2018-10-10 07:55 | XMS REPORT | Summary of Care ---
Author Author [facility] [place] Organization [facility] [place] Address Unknown Phone Unavailable Encounter HQ Ethel(FELICIA) [id number] Date(s): 04/08/16 - 04/08/16 [facility] [place] [address] [place] [address] [phone] Discharge Disposition: Home or Self Care Attending [...]
--- OUTSIDE RECORDS SUMMARY | 2018-10-10 07:55 | XMS REPORT | Summary of Care ---
Author Author [facility] Organization [facility] Address Unknown Phone Unavailable Encounter HQ Ethel(FELICIA) [id number] Date(s): 12/29/14 - 12/29/14 [facility] [address] [place] [address]- Discharge Diagnosis: Dehydration Discharge Disposition: Home Attending Physician: Carlito Ibarra MD Vital Signs 1 2 3 Most recent to oldest [Reference Range]: 157.48 cm (12/29/14 5:06 PM) Height 1 2 3 Most recent to oldest [Reference Range]: 98.3 DegF (12/29/14 11:23 PM) 98.4 DegF (12/29/14 8:57 PM) 98.3 DegF (12/29/14 5:06 PM) Temperature Oral [96.4-99.1 DegF] 1 2 3 Most recent to oldest [Reference Range]: 108/76 mmHg (12/29/14 11:23 PM) 106/79 mmHg (12/29/14 10:15 PM) Blood Pressure [90-140/60-90 mmHg] 117 mmHg (12/29/14 8:57 PM) Systolic Blood Pressure [90-140 mmHg] 1 2 3 Most recent to oldest [Reference Range]: 87 mmHg (12/29/14 8:57 PM) Diastolic Blood Pressure [60-90 mmHg] 1 2 3 Most recent to oldest [Reference Range]: 23 BRMIN *HI* (12/29/14 11:23 PM) 19 BRMIN (12/29/14 10:15 PM) 14 BRMIN (12/29/14 8:57 PM) Respiratory Rate [14-20 BRMIN] 1 2 3 Most recent to oldest [Reference Range]: 82 bpm (12/29/14 8:57 PM) 92 bpm (12/29/14 5:06 PM) Peripheral Pulse Rate [60-100 bpm] 1 2 3 Most recent to oldest [Reference Range]: 90.909 kg (12/29/14 5:06 PM) Weight 1 2 3 Most recent to oldest [Reference Range]: 36.66 m2 (12/29/14 5:06 PM) Body Mass Index Problem List Condition Effective Dates Status Health [...] Substance Reaction Severity Status morphine Active Medications NS (Bolus) IV 1,000 mL, 1,000 ml/hr, Infuse Over: 1 hr, Route: IV, ONCE, Priority: STAT, Dosin g Weight 90.909 kg, Start date: 12/29/14 21:57:00, Duration: 1 doses or times, S top date: 12/29/14 21:57:00 Start Date: 12/29/14 Stop Date: 12/29/14 Status: Completed Results ELECTROLYTES Most recent to 1 oldest [Reference Range]: Sodium Lvl [135-145 134 mEq/L mEq/L] *LOW* (12/29/14 9:10 PM) Potassium Lvl 4.3 mEq/L [3.5-5.1 mEq/L] (12/29/14 9:10 PM) Chloride Lvl [95-109 98 mEq/L mEq/L] (12/29/14 9:10 PM) CO2 [24-32 mEq/L] 26 mEq/L (12/29/14 9:10 PM) AGAP [10.0-20.0 14.3 mEq/L mEq/L] (12/29/14 9:10 PM) CHEM PANEL Most recent to 1 oldest [Reference Range]: Creatinine Lvl 1.1 mg/dL [0.5-1.4 mg/dL] (12/29/14 9:10 PM) eGFR 52 mL/min/1.73m2 1 *NA* (12/29/14 9:10 PM) BUN [7-22 mg/dL] 24 mg/dL *HI* (12/29/14 9:10 PM) B/C Ratio [6-25] 22 (12/29/14 9:10 PM) Glucose Lvl [70-99 107 mg/dL mg/dL] *HI* (12/29/14 9:10 PM) Total Protein 8.3 g/dL [6.4-8.4 g/dL] (12/29/14 9:10 PM) Albumin Lvl [3.5-5.0 4.0 g/dL g/dL] (12/29/14 9:10 PM) Globulin [2.0-4.0 4.3 g/dL g/dL] *HI* (12/29/14 9:10 PM) A/G Ratio [0.7-1.6] 0.9 (12/29/14 9:10 PM) Calcium Lvl 8.8 mg/dL [8.5-10.5 mg/dL] (12/29/14 9:10 PM) ALT [0-65 unit/L] 35 unit/L (12/29/14 9:10 PM) AST [0-37 unit/L] 25 unit/L (12/29/14 9:10 PM) Alk Phos [39-136 46 unit/L unit/L] (12/29/14 9:10 PM) Bili Total [0.2-1.3 0.3 mg/dL mg/dL] (12/29/14 9:10 PM) 1Result Comment: The eGFR is calculated using [...] be mul tiplied by the estimated BMI. CARDIAC ENZYMES Most recent to 1 oldest [Reference Range]: Total CK [12-191 126 unit/L unit/L] (12/29/14 9:10 PM) CK MB [0.5-3.6 1.4 ng/mL ng/mL] (12/29/14 9:10 PM) CK MB Index 1.1 [0.0-2.5] (12/29/14 9:10 PM) Troponin-I <0.02 ng/mL [0.00-0.40 ng/mL] (12/29/14 9:10 PM) HEMATOLOGY Most recent to 1 oldest [Reference Range]: WBC [3.7-10.4 K/CMM] 12.4 K/CMM *HI* (12/29/14 9:10 PM) RBC [4.20-5.40 4.65 M/CMM M/CMM] (12/29/14 9:10 PM) Hgb [12.0-16.0 g/dL] 12.7 g/dL (12/29/14 9:10 PM) Hct [36.0-48.0 %] 38.4 % (12/29/14 9:10 PM) MCV [80.0-98.0 fL] 82.6 fL (12/29/14 9:10 PM) MCH [27.0-31.0 pg] 27.4 pg (12/29/14 9:10 PM) MCHC [32.0-36.0 33.2 g/dL g/dL] (12/29/14 9:10 PM) RDW [11.5-14.5 %] 15.8 % *HI* (12/29/14 9:10 PM) Platelet [133-450 235 K/CMM K/CMM] (12/29/14 9:10 PM) MPV [7.4-10.4 fL] 8.9 fL (12/29/14 9:10 PM) Segs [45.0-75.0 %] 48.7 % (12/29/14 9:10 PM) Lymphocytes 38.0 % [20.0-40.0 %] (12/29/14 9:10 PM) Monocytes [2.0-12.0 9.7 % %] (12/29/14 9:10 PM) Eosinophils [0.0-4.0 2.8 % %] (12/29/14 9:10 PM) Basophils [0.0-1.0 0.8 % %] (12/29/14 9:10 PM) Segs-Bands # 6.0 K/CMM [1.5-8.1 K/CMM] (12/29/14 9:10 PM) Lymphocytes # 4.7 K/CMM [1.0-5.5 K/CMM] (12/29/14 9:10 PM) Monocytes # [0.0-0.8 1.2 K/CMM K/CMM] *HI* (12/29/14 9:10 PM) Eosinophils # 0.3 K/CMM [0.0-0.5 K/CMM] (12/29/14 9:10 PM) Basophils # [0.0-0.2 0.1 K/CMM K/CMM] (12/29/14 9:10 PM) PT [12.0-14.7 13.6 seconds seconds] (12/29/14 9:10 PM) INR [0.85-1.17] 1.04 (12/29/14 9:10 PM) PTT [22.9-35.8 28.5 seconds seconds] (12/29/14 9:10 PM) Immunizations No data available for this section [...]
--- OUTSIDE RECORDS SUMMARY | 2018-10-10 07:55 | XMS REPORT | Summary of Care ---
Author Organization Unknown Address Unknown Phone Unavailable Encounter HQ Ethel(FELICIA) [id number] Date(s): 03/07/14 - 03/07/14 [facility] [address] [place], [place] [address] - [facility] Discharge Disposition: Home Physician Attending: Osiel Naylor MD Physician Admitting: Osiel Naylor MD Physician_Referring: Osiel Naylor MD Reason for Visit 250.00/401.9/562.11/V12.72 Vital Signs 1 2 3 Most recent to oldest [Reference Range]: 160.02 cm (03/03/14 10:52 AM) Height 98.1 DegF (03/03/14 10:52 AM) Temperature Oral [96.4-99.1 DegF] 118 mmHg (03/07/14 8:10 AM) 85 mmHg *LOW* (03/07/14 8:02 AM) 102 mmHg (03/07/14 7:50 AM) Systolic Blood Pressure [90-140 mmHg] 62 mmHg (03/07/14 8:10 AM) 46 mmHg *LOW* (03/07/14 8:02 AM) 58 mmHg *LOW* (03/07/14 7:50 AM) Diastolic Blood Pressure [60-90 mmHg] 18 BRMIN (03/07/14 8:10 AM) 18 BRMIN (03/07/14 8:02 AM) 18 BRMIN (03/07/14 7:50 AM) Respiratory Rate [14-20 BRMIN] 91.364 kg (03/03/14 10:52 AM) Weight 35.68 m2 (03/03/14 10:52 AM) Body Mass Index Problem List Condition Effective Dates Status Health Status Informant Acid Resolved reflux(Confirmed) Back pain(Confirmed) Resolved Diabetes Active mellitus(Confirmed) Diverticulitis(Confi Active rmed) Diverticulitis(Confi Resolved rmed) DM (diabetes Resolved mellitus), type 2(Confirmed) Hip pain(Confirmed) Resolved Hypercholesterolemia Active (Confirmed) Sigmoid Active colectomy(Confirmed) Sleep Active apnea(Confirmed) Allergies, Adverse Reactions, Alerts Substance Reaction Severity Status morphine Active Medications flumazenil 0.2 mg, Route: IVP, PRN, Dosing Weight 91.364, kg, PRN Other -See Comment, Start date: 03/07/14 7:47:00, Duration: 1 doses or times, Stop date: Limited # of eva es Start Date: 03/07/14 Stop Date: 03/07/14 Status: Discontinued flumazenil 0.1 mg, Route: IVP, Q5Min, Dosing Weight 91.364, kg, PRN Other -See Comment, Sta rt date: 03/07/14 7:47:00, Duration: 30 day, Stop date: 04/06/14 6:46:00 Start Date: 03/07/14 Stop Date: 03/07/14 Status: Discontinued naloxone 0.1 mg, Route: IVP, Q2MIN, Dosing Weight 91.364, kg, PRN Narcotic Reversal, Star t date: 03/07/14 7:47:00, Duration: 4 doses or times, Stop date: Limited # of ti mes Start Date: 03/07/14 Stop Date: 03/07/14 Status: Discontinued Sodium Chloride 0.9% IV 1000 mL 1,000 mL, Rate: 25 ml/hr, Infuse over: 40 hr, Route: IV, Dosing Weight 91.364 kg , Total Volume: 1,000, Start date: 03/07/14 9:23:00, Duration: 30 day, Stop date : 04/06/14 9:22:00 Start Date: 03/07/14 Stop Date: 03/07/14 Status: Discontinued Results ELECTROLYTES Most recent to 1 oldest [Reference Range]: Sodium Lvl [135-145 140 mEq/L mEq/L] (03/03/14 10:44 AM) Potassium Lvl 4.9 mEq/L [3.5-5.1 mEq/L] (03/03/14 10:44 AM) Chloride Lvl [95-109 102 mEq/L mEq/L] (03/03/14 10:44 AM) CO2 [24-32 mEq/L] 29 mEq/L (03/03/14 10:44 AM) AGAP [10.0-20.0 13.9 mEq/L mEq/L] (03/03/14 10:44 AM) CHEM PANEL Most recent to 1 oldest [Reference Range]: Creatinine Lvl 0.8 mg/dL [0.5-1.4 mg/dL] (03/03/14 10:44 AM) eGFR 78 mL/min/1.73m2 1 *NA* (03/03/14 10:44 AM) BUN [7-22 mg/dL] 18 mg/dL (03/03/14 10:44 AM) Glucose Lvl [70-99 143 mg/dL 2 mg/dL] *HI* (03/03/14 10:44 AM) Calcium Lvl 9.6 mg/dL [8.5-10.5 mg/dL] (03/03/14 10:44 AM) 1Result Comment: The eGFR is calculated [...] values reflect the clinical guidelines of the [employer]. Medications Administered During Your Visit No data available for this section Immunizations No data available for this section Procedures Procedure Type Body Site Date of Procedure Related Diagnosis Cystectomy Oophorectomy of remaining solitary ovary Sigmoid colectomy and colostomy Ureter operation Social History Social History Type Response Alcohol Use: Never, Has alcohol use interfered with work or home life? No, Do you ever drink more than intended? No, Has anyone been hurt or at risk by your drinking? No, Ready to change: No, Concerns about alcohol use in household: No Smoking Status Never smoker, Exposure to Tobacco Smoke None, Cigarette Smoking Last 365 Days No, Reg Smoking Cessation Counseling No
--- OUTSIDE RECORDS SUMMARY | 2018-10-10 07:55 | XMS REPORT ---
[facility] Address Unknown Phone Unavailable Care Team Providers Care Molded Goods Embossing Press Operator Name Role Phone ISABEL DEE Unavailable Unavailable Problems This patient has no known problems. Allergies, Adverse Reactions, Alerts This patient has no known allergies or adverse reactions. Medications This patient has no known medications. Encounters Start Date/Time End Date/Time Encounter Type Admission Type Attending Clinicians Care Facility Care Department Encounter ID 2018-09-24 07:25:00 2018-09-24 07:25:00 [id number] 2018-09-05 06:49:00 2018-09-05 06:49:00 [facility] [id number] 2018-08-09 11:17:00 2018-08-09 11:17:00 [facility] [id number] Results Test Description Test Time Test Comments Text Results Atomic Results Result Comments CHEST 2 VIEWS 2018-10-08 12:24:00 [facility] [address] [place] [address] Patient Name: AB PARRA MR #: [id number] : 1950 Age/Sex: 68/F Req #: [id number] Adm Physician: Ordered by: ISABEL DEE MD Report #: [id number] Location: OR Room/Bed: Procedure: [id number] DX/CHEST 2 VIEWS Exam Date: Exam Time: REPORT STATUS: Signed EXAMINATION: CHEST 2 VIEWS INDICATION: Pre-operative. COMPARISON: None FINDINGS: TUBES and LINES: None. LUNGS: Lungs are moderately inflated. There is no evidence of pneumonia or pulmonary edema. There is elevation of the right hemidiaphragm. Mild interstitial opacities may reflect age-related chronic changes. PLEURA: No pleural effusion or pneumothorax. HEART AND MEDIASTINUM: The cardiomediastinal silhouette is unremarkable. There are atherosclerotic calcifications within the aorta. BONES AND SOFT TISSUES: No acute osseous abnormality. UPPER ABDOMEN: No free air under the diaphragm. IMPRESSION: Clear lungs. Elevation of the right hemidiaphragm. Comparison with prior studies or fluoroscopic sniff test may be considered to evaluate for phrenic nerve palsy. Signed by: Dr. Preeti Ortez MD on 10/08/2018 12:27 PM Dictated By: PREETI ORTEZ MD 1227 Transcribed By: JUDAH on 10/08/18 1227 COPY TO: ISABEL DEE MD
--- OUTSIDE RECORDS SUMMARY | 2018-10-10 07:55 | XMS REPORT | Summary of Care ---
Author Author [facility] Organization [facility] Address Unknown Phone Unavailable Encounter HQ Ethel(FIN) [id number] Date(s): 03/05/15 - 03/05/15 [facility] [address] [place], [place] [address] [phone] Discharge Disposition: Home Attending Physician: Bismark Nolen MD Vital Signs [...]
--- OUTSIDE RECORDS SUMMARY | 2018-10-10 07:55 | XMS REPORT | Summary of Care ---
Author Author [facility] [place] Organization [facility] [place] Address Unknown Phone Unavailable Encounter HQ Ethel(FIN) [id number] Date(s): 04/20/16 - 04/20/16 [facility] [place] [address] [place] [address] [phone] Discharge Disposition: Home or Self Care Attending [...]
--- OUTSIDE RECORDS SUMMARY | 2018-10-10 07:55 | XMS REPORT | Summary of Care ---
Author Author [facility] Organization [facility] Address Unknown Phone Unavailable Encounter ADIN Davenport(FELICIA) [id number] Date(s): 09/05/18 - 09/05/18 [facility] [address] [place] [address]- Discharge Disposition: Home or Self Care Attending Physician: Bismark Nolen MD Referring Physician: Bismark Nolen MD Vital Signs Most recent to 1 oldest [Reference Range]: Height 160.02 cm (09/05/18 8:59 AM) Weight 92.273 kg (09/05/18 8:59 AM) Body Mass Index 36.04 m2 (09/05/18 8:59 AM) Problem List Condition Effective Dates Status Health [...]
[2018-10-10 18:30] VITALS: BP 111/79
--- NOTE | 2018-10-11 17:53 | Operative Report ---
DATE OF PROCEDURE: 10/10/2018 SURGEON: Alton Uribe MD PREOPERATIVE DIAGNOSES: Right shoulder rotator cuff tear, right shoulder AC joint arthrosis. POSTOPERATIVE DIAGNOSES: Right shoulder synovitis, right shoulder biceps tendon rupture, right shoulder rotator cuff tear, right shoulder AC joint arthritis. OPERATION/PROCEDURE PERFORMED: The patient underwent right shoulder exam under anesthesia, right shoulder arthroscopy, right shoulder debridement of synovitis, right shoulder arthroscopic reconstruction of a large full-thickness rotator cuff tear, arthroscopic subacromial decompression acromioplasty as well as arthroscopic distal clavicle resection. BANDOLEER STRAIGHTENER STAMPER: Dannielle Chavez. ANESTHESIA: General endotracheal intubation anesthesia. IV FLUIDS: Per the Anesthesia record. BLOOD LOSS: Less than 5 mL. BRIEF DISCUSSION OF THE PATIENT'S OPERATIVE PROCEDURE: Ms. Lee was taken to the operating room and placed in the supine position on operating table. Following induction of general anesthesia as well as endotracheal intubation, the patient's right upper extremity was examined under anesthesia. She was found to have full passive range of motion of the shoulder joint without evidence of instability. The patient's upper extremity was prepped and draped in sterile fashion. Standard posterior lateral and anterior portal was created without difficulty. The scope was placed in the shoulder joint atraumatically. Examination of the glenohumeral articulation demonstrated no significant evidence of chondromalacia. The long head of the biceps was not contained within the shoulder joint. There was diffuse synovitis within the shoulder. There was a large full-thickness rotator cuff tear. There were no loose bodies within the shoulder. A shaver was placed in the shoulder joint and the synovitis was debrided. The torn rotator cuff was also debrided to healthy tissue. The insertion site for the rotator cuff was also debrided. The shoulder was inflated with sterile normal saline. The scope was placed in subacromial space and significant bursal inflammation was encountered. A lateral portal was created with an outside in technique. Shaver was placed in the shoulder joint and a bursectomy was performed. The rotator cuff tear was easily identified. The insertion site was further debrided to a bleeding bony bed. Two suture anchors were placed within the greater tuberosity of the humerus and suture arms from those anchors were then woven through the rotator cuff tissue. The rotator cuff tissue was then advanced into its normal insertion site repairing the large full-thickness rotator cuff injury. The patient's rotator cuff tissue, however, was of poor quality and it was clear this rotator cuff injury had been present for quite some time. The shaver was then used to provide the patient aggressive acromioplasty. The coracoacromial ligament was also resected at this time. The anterior portal was transferred to the subacromial space and the distal clavicle was isolated. A 1 cm section of the distal clavicle was then resected. The scope was transferred to the anterior portal to confirm complete resection of the clavicle. The shoulder was deflated with sterile normal saline. The portal sites were closed and dressed sterilely. The patient was provided with shoulder immobilizer, awakened, and taken to the postanesthesia care unit in stable condition. Dannielle Chavez was the assistant press operator offset for this case and was necessary for the prepping and draping of the patient as well as the positioning of the arm and passage of suture that allowed this case to be successful. MD MORE Patel/RADHA /[id number]
== END | disposition home or self-care (01) ==
LOC: OR 07:40
PROVIDERS: ATTEND Specialist
DX: M75.121 Complete rotator cuff tear or rupture of right shoulder, not specified as traumatic (principal); M19.011 Primary osteoarthritis, right shoulder; M75.112 Incomplete rotator cuff tear or rupture of left shoulder, not specified as traumatic; M19.012 Primary osteoarthritis, left shoulder; M65.811 Other synovitis and tenosynovitis, right shoulder; E11.9 Type 2 diabetes mellitus without complications; G47.33 Obstructive sleep apnea (adult) (pediatric); I10 Essential (primary) hypertension; E78.5 Hyperlipidemia, unspecified; K29.70 Gastritis, unspecified, without bleeding; K21.9 Gastro-esophageal reflux disease without esophagitis; Z88.6 Allergy status to analgesic agent; Z01.810 Encounter for preprocedural cardiovascular examination; Z01.812 Encounter for preprocedural laboratory examination; Z01.818 Encounter for other preprocedural examination; Z79.82 Long term (current) use of aspirin; Z79.4 Long term (current) use of insulin; Z68.36 Body mass index [BMI] 36.0-36.9, adult
CPT/HCPCS: 29824; 29826; 29827; 36415 ×2; 71046; 80048; 82948; 85025; 93005; J0131; J0171; J0690; J1100; J2001; J2175; J2250; J2370; J2405; J2550; J2704; J2765; J3490